=== PATIENT | female | born 1980 | race Caucasian/White ===

== ENCOUNTER 2021-07-14 12:36 | Emergency (ER) | payer OTHER, SELFPAY ==
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
[2021-07-14 13:25] VITALS: BP 151/92; BP 158/117; PULSE 96; PULSE 98; RESP 19; TEMP 36.1; O2SAT 97
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
[2021-07-14 18:32] VITALS: BP 147/95; PULSE 88; RESP 17; O2SAT 96
[2021-07-14] MEDS: oxyCODONE HCl Immed Release 5 MG TABLET PO (18:34)
[2021-07-14] MEDS: Ketorolac Tromethamine 60 MG/2 ML VIAL IM (18:38)
[2021-07-14] MEDS: Amoxicillin/Potassium Clav 875 MG TABLET PO (18:38)
== END 2021-07-14 19:46 | disposition home or self-care (01) ==
PROVIDERS: Emergency Provider Emergency Medicine
DX: S70.01XA Contusion of right hip, initial encounter (principal); S51.852A Open bite of left forearm, initial encounter; G44.309 Post-traumatic headache, unspecified, not intractable; M25.571 Pain in right ankle and joints of right foot; Y04.1XXA Assault by human bite, initial encounter; Y93.9 Activity, unspecified; Y92.9 Unspecified place or not applicable; Y99.9 Unspecified external cause status; Z79.899 Other long term (current) drug therapy
CPT/HCPCS: 70486; 73502; 73600; 96372; 99284; J1885

== ENCOUNTER 2021-07-30 17:46 | Emergency (ER) | payer OTHER, SELFPAY ==
[2021-07-30 17:54] VITALS: BP 174/120; PULSE 86; RESP 18; TEMP 36.1; O2SAT 98; BMI 50.2
--- NOTE | 2021-07-30 18:42 | ED.BACK ---
HPI - Back Pain/Injury General Chief Complaint: Back Pain/Injury Stated Complaint: back pain Time Seen by Provider: 07/30/21 18:30 Source: patient Mode of arrival: ambulatory Limitations: no limitations History of Present Illness HPI Narrative: 41-year-old female with history of morbid obesity, chronic low back pain with known herniated disc who presents to the ER with acute on chronic right sided LBP that worsened yesterday when she was putting on her abdominal binder getting ready to go out. She states the pain is located in the lower back and does not radiate. With movement the pain is a 10/10. At rest it is minimal. She is unable to cook her Thanksgiving dinner due to the pain. She denies any lower extremity weakness, numbness, tingling, urinary or bowel incontinence. She states she has to take chronic narcotics for low back pain however her pain management doctor retired and she has been managing the pain without narcotics for quite some time now. She feels the pain is deep and spasming. She has tried ice and 800 mg of ibuprofen with no relief. MD elicited complaint: back pain Pertinent past history: prior back pain Onset (ago): day(s) Timing: intermittent and progressively worsening Severity: severe Pain scale (0-10): 10 Similar Symptoms Previously: Yes Quality: sharp and spasming Location: right lower back Radiation: none Exacerbating factors: movement and walking Relieving factors: immobilization Context: turning/twisting Associated symptoms: denies other symptoms Treatments prior to arrival: cold therapy and NSAIDS Work related injury: No Related Data Previous Rx's Medication Instructions Recorded amoxicillin 875 mg-potassium 1 tab PO Q12H #14 tab 07/14/21 clavulanate 125 mg tablet (Augmentin) amoxicillin 875 mg-potassium 1 tab PO Q12H #14 tab 07/14/21 clavulanate 125 mg tablet (Augmentin) oxycodone-acetaminophen 5 mg-325 1 tab PO TID PRN #7 tab 07/14/21 mg tablet (Percocet) oxycodone-acetaminophen 5 mg-325 1 tab PO TID PRN #7 tab 07/14/21 mg tablet (Percocet) cyclobenzaprine 10 mg tablet 10 mg PO TID PRN #14 tab 07/30/21 hydrocodone 5 mg-acetaminophen 325 1 tab PO Q6H PRN #8 tab 07/30/21 mg tablet ibuprofen 800 mg tablet 800 mg PO Q8H PRN #14 tab 07/30/21 lidocaine 5 % topical patch 1 patch TOPICAL DAILY #15 ea 07/30/21 Allergies Allergy/AdvReac Type Severity Reaction Status Date / Time No Known Allergies Allergy Verified 07/14/21 17:53 Review of Systems Review of Systems: Constitutional: No Fever, No Chills ENT/Mouth: No sore throat, No Rhinorrhea, No Swallowing Difficulty Cardiovascular: No Chest Pain, No SOB Gastrointestinal: No Nausea, No Vomiting, No abdominal Pain Genitourinary: No Dysuria, No Urinary Frequency, No Hematuria Musculoskeletal: No joint pain, + Myalgias Skin: No Skin Lesions, No rash Neuro: No Weakness, No Numbness Heme/Lymph: No Bruising, No Lymphadenopathy PMFSH Past Medical History Medical History Herniated lumbar intervertebral disc Hypertension Social History Social History Advance Directives: No Advance Directives Information Provided: No Physical Exam Vital Signs: Vital Signs: Last Vital Signs Temp 97 F 07/30/21 17:54 Pulse 86 07/30/21 17:54 Resp 18 07/30/21 17:54 BP 174/120 H 07/30/21 17:54 Pulse Ox 98 07/30/21 17:54 Body Mass Index 50.2 Appearance: Alert. Oriented X3. No acute distress. HEENT: normal inspection CVS: Normal heart rate and rhythm. Pulses normal. Respiratory: No respiratory distress. Skin: Skin warm and dry. Normal skin color. Normal skin turgor. No rashes. Back: Normal inspection, limited range of motion due to pain. Right low lumbar area and SI joint are nontender. Negative straight leg raise. Extremities: Atraumatic x4, normal range of motion Neuro: Oriented X 3. No motor deficit. No sensory deficit. Ambulates with slow but steady gait. Course Course Course Narrative: 41-year-old female with history of morbid obesity chronic low back pain with known herniated disc presents to the ER with acute onset of right low back pain with a twisting motion yesterday. No radiation of the pain or no red flag symptoms of low back pain. She is comfortable at rest. No urinary symptoms. Will medicate and reassess. Reevaluation(s) Reevaluation #1: Patient's pain is much improved. She is ambulating with a steady gait. She is stable for discharge home with a short course of muscle relaxers and p.r.n. Vicodin for severe pain. She will follow-up with her doctor early next week. Critical Care Time Critical Care Time Critical Care Time: No Discharge Plan Discharge Clinical Impression: Low back pain Qualifiers: Chronicity: acute Back pain laterality: right Sciatica presence: without sciatica Qualified Code(s): M54.50 - Low back pain, unspecified Patient Disposition: Home, Self-Care Instructions: Acute Low Back Pain (ED) Additional Instructions: No bending, lifting or twisting. Use ice several times per day for 20 minutes at a time for the next 48 hours and then change to heat. Take medications as prescribed to help with pain and discomfort. Follow up with your Primary Care Doctor this week. If your pain worsens, if you develop new numbness, tingling, weakness, loss of function or incontinence call 911 or come back to the ER right away for evaluation. Prescriptions: New hydrocodone-acetaminophen 5-325 mg tablet 1 tab PO Q6H PRN (Reason: pain) Qty: 8 RF: 0 cyclobenzaprine 10 mg tablet 10 mg PO TID PRN (Reason: muscle spasm) Qty: 14 RF: 0 ibuprofen 800 mg tablet 800 mg PO Q8H PRN (Reason: pain) Qty: 14 RF: 0 lidocaine 5 % adhesive patch,medicated 1 patch topical DAILY Qty: 15 RF: 0 No Action amoxicillin-pot clavulanate [Augmentin] 875-125 mg tablet 1 tab PO Q12H Qty: 14 RF: 0 oxycodone-acetaminophen [Percocet] 5-325 mg tablet 1 tab PO TID PRN (Reason: pain) Qty: 7 RF: 0 amoxicillin-pot clavulanate [Augmentin] 875-125 mg tablet 1 tab PO Q12H Qty: 14 RF: 0 oxycodone-acetaminophen [Percocet] 5-325 mg tablet 1 tab PO TID PRN (Reason: pain) Qty: 7 RF: 0 Interventions: ED Discharge Assessment Last Done: 07/30/21 19:21 Discharge Date/Time: 07/30/21 19:21
[2021-07-30] MEDS: Cyclobenzaprine HCl 10 MG TABLET PO (19:03)
[2021-07-30] MEDS: Ketorolac Tromethamine 15 MG/ML VIAL 30 MG IM (19:05)
== END 2021-07-30 19:21 | disposition home or self-care (01) ==
PROVIDERS: Emergency Provider Emergency Medicine
DX: M54.50 Low back pain, unspecified (principal); M62.838 Other muscle spasm; Z79.899 Other long term (current) drug therapy
CPT/HCPCS: 96372; 99283; 99284; J1885

== ENCOUNTER 2021-09-28 12:36 | Emergency (ER) | payer OTHER, SELFPAY ==
[2021-09-28 12:40] VITALS: BP 196/109; PULSE 103; TEMP 36.8; O2SAT 95; BMI 47.2
[2021-09-28 13:11] LABS: Appearance Urine CLOUDY; Color Urine YELLOW; Glucose Urine UA NEG (NEG); Leukocyte Esterase Urine 2+ (NEG); Nitrite Urine POS (NEG); PH 5.5 (5.0-8.0); Specific Gravity - Urine >= 1.030 (1.005-1.025); UACC Culture Trigger YES; Urine Blood 3+ (NEG); Urine Ketones NEG (NEG); Urine Protein 2+ MG/DL (NEG-TRACE)
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
[2021-09-28 13:37] LABS: Bacteria Urine 2+ /LPF; Mucus Urine 1+ /LPF; RBC Urine 50-75 /HPF (0); Squamous Epithelial Cell Urine 2+ /LPF
[2021-09-28] MEDS: oxyCODONE HCl Immed Release 5 MG TABLET PO (13:37)
[2021-09-28] MEDS: Ketorolac Tromethamine 60 MG/2 ML VIAL IM (13:38)
[2021-09-28] MEDS: Nitrofurantoin Monohyd/M-Cryst 100 MG CAPSULE PO (14:04)
[2021-09-28 15:44] LABS: CT PCR NOT DETECTED (Not Detect.); NG PCR NOT DETECTED (Not Detect.)
== END 2021-09-28 14:07 | disposition home or self-care (01) ==
PROVIDERS: Nurse Practitioner Family; Emergency Provider Emergency Medicine
DX: S39.012A Strain of muscle, fascia and tendon of lower back, initial encounter (principal); N39.0 Urinary tract infection, site not specified; W00.0XXA Fall on same level due to ice and snow, initial encounter; Y93.9 Activity, unspecified; Y92.9 Unspecified place or not applicable; Y99.9 Unspecified external cause status; Z79.899 Other long term (current) drug therapy
CPT/HCPCS: 81001; 87086; 87088; 87186; 87491; 87591; 96372; 99284; J1885

== ENCOUNTER 2021-10-05 22:22 | Emergency (ER) | payer OTHER, SELFPAY ==
--- NOTE | ~2021-10-05 | XR_ITS ---
EXAMINATION: XR CHEST CLINICAL INFORMATION: Shortness of breath. COMPARISON: None TECHNIQUE: Frontal view of the chest was obtained. FINDINGS: No significant abnormality is noted involving the heart, lungs, mediastinum, bony thorax or soft tissues. XR/XR chest 1V IMPRESSION: No acute cardiopulmonary process.
[2021-10-05 22:29] VITALS: BP 156/90; BP 157/107; PULSE 92; PULSE 93; RESP 20; TEMP 36.9; O2SAT 95; BMI 47.2
[2021-10-05 23:01] LABS: COVID-19 Test Negative (Negative); IDNOW Serial# 9DD0AD1C
--- NOTE | 2021-10-06 00:05 | ED_ITS ---
HPI - SOB/Dyspnea General Chief Complaint: Dyspnea Stated Complaint: Diff breathing Time Seen by Provider: 10/05/21 23:46 History of Present Illness HPI Narrative: Patient is a 41-year-old smoker presents today with coughing upper respiratory symptoms generalized malaise. Patient had her COVID vaccine x2. Patient denies any focal weakness. Denies any chest pain denies any diaphoresis claims when she ambulates she gets more short of breath especially with coughing. Patient from home. Cough is nonproductive in nature. Denies any leg swelling denies any chest pain. Patient was treated for urinary tract infection approximately 1 week ago. Claims she just finished the antibiotic but has developed a slight rash to her arms. Related Data Previous Rx's Medication Instructions Recorded amoxicillin 875 mg-potassium 1 tab PO Q12H #14 tab 07/14/21 clavulanate 125 mg tablet (Augmentin) amoxicillin 875 mg-potassium 1 tab PO Q12H #14 tab 07/14/21 clavulanate 125 mg tablet (Augmentin) oxycodone-acetaminophen 5 mg-325 1 tab PO TID PRN #7 tab 07/14/21 mg tablet (Percocet) oxycodone-acetaminophen 5 mg-325 1 tab PO TID PRN #7 tab 07/14/21 mg tablet (Percocet) cyclobenzaprine 10 mg tablet 10 mg PO TID PRN #14 tab 07/30/21 hydrocodone 5 mg-acetaminophen 325 1 tab PO Q6H PRN #8 tab 07/30/21 mg tablet ibuprofen 800 mg tablet 800 mg PO Q8H PRN #14 tab 07/30/21 lidocaine 5 % topical patch 1 patch TOPICAL DAILY #15 ea 07/30/21 cyclobenzaprine 10 mg tablet 10 mg PO TID PRN #10 tab 09/28/21 ketorolac 10 mg tablet 10 mg PO Q8H PRN #15 tab 09/28/21 lidocaine 5 % topical patch 1 patch TOPICAL DAILY #15 ea 09/28/21 (Lidoderm) nitrofurantoin 100 mg PO Q12H 5 Days #10 cap 09/28/21 monohydrate/macrocrystals 100 mg capsule (Macrobid) phenazopyridine 200 mg tablet 200 mg PO TID PRN #10 tab 09/28/21 (Pyridium) Allergies Allergy/AdvReac Type Severity Reaction Status Date / Time No Known Allergies Allergy Verified 10/05/21 22:29 Review of Systems Verdana 4l Review of Systems: Verdana 4d No fever no chills Positive Verdana 4d coughing upper respiratory symptoms Positive generalized malaise Verdana 4d Yes all other systems are reviewed and are negative [facility] Past Medical History Medical History Herniated lumbar intervertebral disc Hypertension Social History Social History Advance Directives: No Advance Directives Information Provided: Yes Patient : No Physical Exam Verdana 4l Vital Signs: Verdana 4d Verdana 4d Vital Signs: Verdana 4d Verdana 4Bd Last Vital Signs Verdana 4d Sales Assistant Displays New 4d Sales Assistant Displays New 4d Temp 98.5 F 10/05/21 22:29 Sales Assistant Displays New 4d Pulse 93 10/05/21 22:29 Sales Assistant Displays New 4d Resp 20 10/05/21 22:29 BP 157/107 H 10/05/21 22:29 Pulse Ox 95 10/05/21 22:29 BMI result Body Mass Index 47.2 Appearance: Alert. Oriented X3. No acute distress. Eyes: Pupils equal, round and reactive to light. ENT: Pharynx normal. Neck: Normal inspection. Neck supple. No lymph nodes noted. No crepitus CVS: Normal heart rate and rhythm. Pulses normal. Normal S1 and S2 Respiratory: No respiratory distress. Breath sounds normal. No Wheezing. No rales Abdomen: Soft and nontender. No rigidity. No distention. good BS x4 Skin: Skin warm and dry. Normal skin color. Normal skin turgor. Extremities: No lower extremity edema. Neurovascular intact to all extremities. No Lacerations. No Rash Neuro: Oriented X 3. No motor deficit. No sensory deficit. Moving all extermities. No slurred speech MDM - SOB/Dyspnea MDM Narrative Medical decision making narrative: Patient's O2 sat 95% on room air. After ambulation patient's O2 sat actually went up to 97%. She is in no distress. Lungs are clear. COVID test was negative chest x-ray negative. Patient given reassurance. Question allergic reaction to antibiotic the patient already finished her antibiotics. There is no other change in her environment. Will discharge patient home will give patient an albuterol inhaler. Encouraged patient to stop smoking. Close follow-up on an outpatient basis. Medical Records Attestation: I reviewed the patient's medical records. Lab Data Attestation: I reviewed the patient's lab results. Labs: Lab Results 10/05/21 Range/Units 22:36 COVID-19 ([facility]) Negative (Negative) COVID-19 Clin Com See Note Discharge Plan Discharge Clinical Impression: Upper respiratory infection Patient Disposition: Home, Self-Care Instructions: Upper Respiratory Infection (ED) Prescriptions: No Action hydrocodone-acetaminophen 5-325 mg tablet 1 tab PO Q6H PRN (Reason: pain) Qty: 8 0RF cyclobenzaprine 10 mg tablet 10 mg PO TID PRN (Reason: muscle spasm) Qty: 14 0RF ibuprofen 800 mg tablet 800 mg PO Q8H PRN (Reason: pain) Qty: 14 0RF lidocaine 5 % adhesive patch,medicated 1 patch topical DAILY Qty: 15 0RF Rx Instructions: leave on most painful area for up to 12 hrs lidocaine [Lidoderm] 5 % adhesive patch,medicated 1 patch topical DAILY Qty: 15 0RF Rx Instructions: leave on most painful area for up to 12 hrs cyclobenzaprine 10 mg tablet 10 mg PO TID PRN (Reason: muscle spasm) Qty: 10 0RF ketorolac 10 mg tablet 10 mg PO Q8H PRN (Reason: pain) Qty: 15 0RF nitrofurantoin monohyd/m-cryst [Macrobid] 100 mg capsule 100 mg PO Q12H 5 Days Qty: 10 0RF Rx Instructions: must administer with a meal/food phenazopyridine [Pyridium] 200 mg tablet 200 mg PO TID PRN (Reason: pain) Qty: 10 0RF amoxicillin-pot clavulanate [Augmentin] 875-125 mg tablet 1 tab PO Q12H Qty: 14 0RF oxycodone-acetaminophen [Percocet] 5-325 mg tablet 1 tab PO TID PRN (Reason: pain) Qty: 7 0RF amoxicillin-pot clavulanate [Augmentin] 875-125 mg tablet 1 tab PO Q12H Qty: 14 0RF oxycodone-acetaminophen [Percocet] 5-325 mg tablet 1 tab PO TID PRN (Reason: pain) Qty: 7 0RF Referrals: Physician,Unknown J [Primary Care Provider] - 2 days
[2021-10-06] MEDS: Albuterol Sulfate 90 MCG 8 GM INHALER 2 PUFF INHALE (00:29)
== END 2021-10-06 00:32 | disposition home or self-care (01) ==
PROVIDERS: Emergency Provider Emergency Medicine Emergency Medical Services
DX: J06.9 Acute upper respiratory infection, unspecified (principal); R06.00 Dyspnea, unspecified; Z20.822 Contact with and (suspected) exposure to COVID-19; Z79.899 Other long term (current) drug therapy
CPT/HCPCS: 71045; 87635; 99283

== ENCOUNTER 2021-10-20 08:13 | Emergency (ER) | payer OTHER, SELFPAY ==
--- NOTE | ~2021-10-20 | XR_ITS ---
EXAMINATION: XR SHOULDER, RIGHT CLINICAL INFORMATION: Right shoulder pain radiating to right arm COMPARISON: None TECHNIQUE: Three views of the right shoulder. FINDINGS: Bone alignment is normal. No fracture or dislocation is seen. The glenohumeral joint is normal. There is arthritis at the acromioclavicular joint. Soft tissues are unremarkable. XR/XR shoulder RT min 2V IMPRESSION: Arthritis at the acromioclavicular joint.
[2021-10-20 09:00] VITALS: BP 159/107; PULSE 84; RESP 16; TEMP 36.2; O2SAT 97; BMI 48.0
--- NOTE | 2021-10-20 09:34 | ED.EXTPRO ---
HPI - Extremity Problem General Chief complaint: Extremity Problem Stated complaint: PAIN R SHOULDER GOING DOWN ARM TINGLING Time Seen by Provider: 10/20/21 09:10 Source: patient and family Mode of arrival: ambulatory Limitations: no limitations History of Present Illness HPI Narrative: 41 yo with history of HTN, disc disease here with complaints of right shoulder pain with radiation down the right arm x 3 weeks with no known injury or trauma. Pain is worsened with movement. She denies any neck pain or trauma. No fevers, chills, cough, difficulty breathing, chest pain. Patient works as a [employer] MANAGER. She does not recall any specific injury. She is taking Toradol at home but ran out today. It does seem to to help when she takes it. Also ran out of her lisinopril 10 mg. Does not have a primary care doctor. She is requesting a refill Related Data Previous Rx's Medication Instructions Recorded amoxicillin 875 mg-potassium 1 tab PO Q12H #14 tab 07/14/21 clavulanate 125 mg tablet (Augmentin) amoxicillin 875 mg-potassium 1 tab PO Q12H #14 tab 07/14/21 clavulanate 125 mg tablet (Augmentin) oxycodone-acetaminophen 5 mg-325 1 tab PO TID PRN #7 tab 07/14/21 mg tablet (Percocet) oxycodone-acetaminophen 5 mg-325 1 tab PO TID PRN #7 tab 07/14/21 mg tablet (Percocet) cyclobenzaprine 10 mg tablet 10 mg PO TID PRN #14 tab 07/30/21 hydrocodone 5 mg-acetaminophen 325 1 tab PO Q6H PRN #8 tab 07/30/21 mg tablet ibuprofen 800 mg tablet 800 mg PO Q8H PRN #14 tab 07/30/21 lidocaine 5 % topical patch 1 patch TOPICAL DAILY #15 ea 07/30/21 cyclobenzaprine 10 mg tablet 10 mg PO TID PRN #10 tab 09/28/21 ketorolac 10 mg tablet 10 mg PO Q8H PRN #15 tab 09/28/21 lidocaine 5 % topical patch 1 patch TOPICAL DAILY #15 ea 09/28/21 (Lidoderm) nitrofurantoin 100 mg PO Q12H 5 Days #10 cap 09/28/21 monohydrate/macrocrystals 100 mg capsule (Macrobid) phenazopyridine 200 mg tablet 200 mg PO TID PRN #10 tab 09/28/21 (Pyridium) cyclobenzaprine 10 mg tablet 10 mg PO TID PRN #10 tab 10/20/21 ketorolac 10 mg tablet 10 mg PO Q8H PRN #30 tab 10/20/21 lisinopril 10 mg tablet 10 mg PO DAILY #30 tab 10/20/21 Allergies Allergy/AdvReac Type Severity Reaction Status Date / Time No Known Allergies Allergy Verified 10/05/21 22:29 Review of Systems Review of Systems: Yes all other systems are reviewed and are negative Constitutional: Constitutional: Reports no additional constitutional complaints, Denies body ache(s), Denies chills, Denies fever(s), Denies headache(s) and Denies weakness Eyes: Eyes: Reports no additional eye complaints and Denies change in vision ENT: Reports system reviewed and no additional complaints, except as documented, Denies dizziness, Denies headache(s), Denies nasal congestion, Denies nasal discharge and Denies neck pain Cardiovascular: Cardiovascular: Reports no additional cardiovascular complaints, Denies chest pain, Denies leg edema and Denies dyspnea Respiratory: Respiratory: Reports no additional respiratory complaints, Denies cough and Denies dyspnea Gastrointestinal: Gastrointestinal: Reports no additional gastrointestinal complaints, Denies abdominal pain, Denies diarrhea, Denies nausea and Denies vomiting Genitourinary: Genitourinary: Reports no additional female genitourinary complaints and Denies urinary incontinence Musculoskeletal: Musculoskeletal: Reports no additional musculoskeletal complaints, Denies back pain, Reports arthralgias, Denies joint swelling, Denies neck pain, Denies numbness, Reports radiating pain into limb and Denies tingling Integumentary/Breasts: Skin/Breast: Reports system reviewed and no additional complaints, except as docu and Denies rash Neurologic: Reports system reviewed and no additional complaints, except as documented, Denies Abnormal speech present, Denies dizziness, Denies headache(s), Denies numbness, Denies tingling and Denies weakness PMFSH Past Medical History Attestation statement: The following information was validated with the patient. Source: nursing notes reviewed Medical History Herniated lumbar intervertebral disc Hypertension Social History Social History Advance Directives: No Advance Directives Information Provided: No Patient : No Physical Exam Vital Signs: Vital Signs: Last Vital Signs Temp 97.2 F 10/20/21 09:00 Pulse 84 10/20/21 09:00 Resp 16 10/20/21 09:00 BP 159/107 H 10/20/21 09:00 Pulse Ox 97 10/20/21 09:00 BMI result Body Mass Index 48.0 Const: General: cooperative, healthy appearing, comfortable and no acute distress Orientation/consciousness: patient oriented x3 Limitations: no limitations HENMT: Head: Yes normal to inspection Ears: hearing grossly normal bilaterally General nose exam: Normal external nose present Face and sinus: Yes normal facial exam Mouth: Normal oral and palatal mucosa present Throat: Yes posterior oropharynx normal Eyes: General: appearance normal, both eyes and all related structures Pupils: Equal, round and reactive pupils present Neck: Other: No midline tenderness, step-offs or deformities Right-sided trapezius tenderness with a palpable muscle spasm. Neck: Yes normal visual inspection, Yes full ROM and Yes no lymphadenopathy Chest: Chest palpation & inspection: normal inspection of the chest Resp: Effort & Inspection: normal respiratory effort Auscultation: clear to auscultation bilaterally Cardio: Rate: regular rate Rhythm: regular rhythm Peripheral pulses: Peripheral pulses 2+ throughout GI: Inspection: Yes normal to inspection Palpation (GI): Soft to palpation and nontender Auscultation: normal bowel sounds Back/Spine/Pelvis: Thoracic/Lumbar Spine: thoracic and lumbar spine normal to inspection Skin: General skin exam: no rashes or lesions noted Neuro: General: patient oriented x3, no focal motor deficits and normal sensation to monofilament Cranial nerves: Yes CN's II-XII intact bilaterally, Yes Equal, round and reactive pupils present, Yes Bilaterally intact EOM present, Yes Nystagmus not present, Yes Normal facial strength present and Yes Midline tongue present Cognition (Neuro): normal cognition Speech: No Abnormal speech present Gait exam (Neuro): Normal gait present Motor exam (neuro): 5/5 motor strength present throughout Sensory Exam: Normal double simultaneous stimulation for sensation Deep tendon reflexes (DTR's): Right triceps reflex intensity grade: 2+, Left triceps reflex intensity grade: 2+, Rt Biceps (C5, C6): 2+, Left biceps reflex intensity grade: 2+, Right brachioradialis reflex intensity grade: 2+ and Left brachioradialis reflex intensity grade: 2+ Extrem: Other: There is tenderness of the proximal humerus. Pain is worsened with abduction of the extremity. Sensation is intact on exam. Neurovascular intact distally. Palpable radial and ulnar pulses. General: Yes normal to inspection Course Course Course Narrative: 41-year-old female here with atraumatic right shoulder pain with radiation down the arm for the last 2-3 weeks that has some improvement with home Toradol. No injury or trauma. No sensation pain. No chest pain or difficulty breathing. On exam the patient has some tenderness over the joint. There is pain with abduction of the extremity but there is no appreciable weakness. No sensation loss. Neurovascularly intact distally to the extremity. Also some tenderness over the right trapezius with a palpable muscle spasm. X-rays ordered from triage shows some arthritic changes. No fracture or dislocation. Likely cervical radiculopathy. Also consider underlying rotator cuff injury or osteoarthritis. Will treat with NSAID, low-dose muscle relaxant, gentle stretching and heat. Recommended follow-up with primary care doctor for resolution of symptoms. Patient does not have 1 so I provided list. She is also requesting a medication refill for lisinopril 10 mg daily. I will give her 30 day supply of this. Reviewed worrisome signs and symptoms when to return to the emergency department. Comfortable discharge home. MDM - Extremity (Nontraumatic) Medical Records Attestation: I reviewed the patient's medical records. Lab Data Attestation: I reviewed the patient's lab results. Imaging Data shoulder xray: Attestation: I personally reviewed and interpreted this imaging study as follows: Radiologist's impression: [address] [address] XRay Report Signed Patient: Patricia Brenner MR#: [id number] : 1980 Acct:[id number] Age/Sex: 41 / F ADM Date: 10/20/21 Loc: HO.ED Attending Dr: Ordering Physician: Patricia Berumen DO Date of Service: 10/20/21 Procedure(s): XR shoulder RT min 2V Accession Number(s): [id number] cc: [place],Patricia DO~ EXAMINATION: XR SHOULDER, RIGHT CLINICAL INFORMATION: Right shoulder pain radiating to right arm? COMPARISON: None? TECHNIQUE: Three views of the right shoulder. FINDINGS: Bone alignment is normal. No fracture or dislocation is seen. The glenohumeral joint is normal. There is arthritis at the acromioclavicular joint. Soft tissues are unremarkable.? XR/XR shoulder RT min 2V IMPRESSION: Arthritis at the acromioclavicular joint. Discharge Plan Discharge Clinical Impression: Cervical radiculopathy, Medication refill Patient Disposition: Home, Self-Care Instructions: Cervical Radiculopathy (ED), Medicine Refill (ED) Additional Instructions: Heat or ice Gentle stretching No heavy lifting or bending See primary care list Prescriptions: New lisinopril 10 mg tablet 10 mg PO DAILY Qty: 30 0RF ketorolac 10 mg tablet 10 mg PO Q8H PRN (Reason: pain) Qty: 30 0RF cyclobenzaprine 10 mg tablet 10 mg PO TID PRN (Reason: muscle spasm) Qty: 10 0RF No Action hydrocodone-acetaminophen 5-325 mg tablet 1 tab PO Q6H PRN (Reason: pain) Qty: 8 0RF cyclobenzaprine 10 mg tablet 10 mg PO TID PRN (Reason: muscle spasm) Qty: 14 0RF ibuprofen 800 mg tablet 800 mg PO Q8H PRN (Reason: pain) Qty: 14 0RF lidocaine 5 % adhesive patch,medicated 1 patch topical DAILY Qty: 15 0RF Rx Instructions: leave on most painful area for up to 12 hrs lidocaine [Lidoderm] 5 % adhesive patch,medicated 1 patch topical DAILY Qty: 15 0RF Rx Instructions: leave on most painful area for up to 12 hrs cyclobenzaprine 10 mg tablet 10 mg PO TID PRN (Reason: muscle spasm) Qty: 10 0RF ketorolac 10 mg tablet 10 mg PO Q8H PRN (Reason: pain) Qty: 15 0RF nitrofurantoin monohyd/m-cryst [Macrobid] 100 mg capsule 100 mg PO Q12H 5 Days Qty: 10 0RF Rx Instructions: must administer with a meal/food phenazopyridine [Pyridium] 200 mg tablet 200 mg PO TID PRN (Reason: pain) Qty: 10 0RF amoxicillin-pot clavulanate [Augmentin] 875-125 mg tablet 1 tab PO Q12H Qty: 14 0RF oxycodone-acetaminophen [Percocet] 5-325 mg tablet 1 tab PO TID PRN (Reason: pain) Qty: 7 0RF amoxicillin-pot clavulanate [Augmentin] 875-125 mg tablet 1 tab PO Q12H Qty: 14 0RF oxycodone-acetaminophen [Percocet] 5-325 mg tablet 1 tab PO TID PRN (Reason: pain) Qty: 7 0RF Referrals: Physician,None [Primary Care Provider] - 2 days
[2021-10-20] MEDS: Cyclobenzaprine HCl 10 MG TABLET PO (10:14)
[2021-10-20] MEDS: Ketorolac Tromethamine 60 MG/2 ML VIAL IM (10:15)
[2021-10-20 10:35] VITALS: PULSE 70; RESP 18
--- NOTE | 2021-10-20 10:35 | PC.NURSE ---
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 PROVIDER UPDATED PT ON PLAN OF CARE AND DISCHARGE HOME. PT AGREEABLE TO BE MEDICATED AND DISCHARGED. PT AWAKE, ALERT AND ORIENTED X 3. SKIN WARM AND DRY. RESP UNLABORED. DENIES N/V. NO C/O ACUTE DISTRESS. +CMS.
== END 2021-10-20 10:41 | disposition home or self-care (01) ==
PROVIDERS: Emergency Provider Emergency Medicine
DX: M54.12 Radiculopathy, cervical region (principal); Z76.0 Encounter for issue of repeat prescription; I10 Essential (primary) hypertension
CPT/HCPCS: 73030; 96372; 99283; 99284; J1885

== ENCOUNTER 2023-05-18 13:21 | Outpatient (AMB) | payer MEDICAID, SELFPAY ==
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
[2023-05-18 14:17] VITALS: BP 160/110; PULSE 85; O2SAT 98; BMI 52.0
== END 2023-05-18 15:12 | disposition home or self-care (01) ==
PROVIDERS: Visit Provider Nurse Practitioner Family
DX: M62.838 Other muscle spasm (principal); M51.36 Other intervertebral disc degeneration, lumbar region; M47.817 Spondylosis without myelopathy or radiculopathy, lumbosacral region; M25.561 Pain in right knee; M25.562 Pain in left knee; E66.01 Morbid (severe) obesity due to excess calories; Z68.43 Body mass index [BMI] 50.0-59.9, adult; M53.3 Sacrococcygeal disorders, not elsewhere classified
CPT/HCPCS: 99204

== ENCOUNTER → 2023-05-18 13:21 | Outpatient (BNVA) | payer MEDICAID, SELFPAY | PROVIDERS: Visit Provider Nurse Practitioner Family | DX: M53.3 Sacrococcygeal disorders, not elsewhere classified (principal); M51.36 Other intervertebral disc degeneration, lumbar region; M47.817 Spondylosis without myelopathy or radiculopathy, lumbosacral region; M25.561 Pain in right knee; M25.562 Pain in left knee; M62.838 Other muscle spasm; E66.01 Morbid (severe) obesity due to excess calories; Z68.43 Body mass index [BMI] 50.0-59.9, adult | CPT/HCPCS: 99212 ==

== ENCOUNTER 2023-05-24 19:00 | Emergency (ER) | payer MEDICAID, SELFPAY ==
--- NOTE | ~2023-05-24 | XR_ITS ---
EXAMINATION: XR CHEST CLINICAL INFORMATION: Cough. COMPARISON: None available. TECHNIQUE: 2 views of the chest were obtained. FINDINGS: No significant abnormality is noted involving the heart, lungs, mediastinum, bony thorax or soft tissues. XR/XR chest 2V IMPRESSION: Unremarkable chest examination.
[2023-05-24 19:29] VITALS: BP 151/93; PULSE 89; RESP 14; TEMP 36.7; O2SAT 97; BMI 50.1
--- NOTE | 2023-05-24 19:29 | ED.SOB ---
HPI - SOB/Dyspnea General Chief Complaint: Upper Respiratory Symptoms Stated Complaint: shortness of breath, coughing Time Seen by Provider: 05/25/23 00:48 Source: patient Mode of arrival: ambulatory History of Present Illness HPI Narrative: 43-year-old female who presents as an everyday smoker with cough and shortness of breath for 3 days but denies any fevers or chills as headaches since is phlegm production with chest wall pain Related Data Previous Rx's Medication Instructions Recorded lisinopril 10 mg tablet 10 mg PO DAILY #30 tabs 10/20/21 celecoxib 200 mg capsule 200 mg PO BID PRN pain 30 days #60 05/18/23 caps tizanidine 4 mg tablet 4 mg PO BID PRN muscle spasticity 05/18/23 30 days #60 tabs benzonatate 200 mg capsule 200 mg PO TID PRN cough #10 caps 05/25/23 prednisone 50 mg tablet 50 mg PO DAILY 4 days #4 tabs 05/25/23 Allergies Allergy/AdvReac Type Severity Reaction Status Date / Time No Known Allergies Allergy Verified 05/18/23 14:14 Review of Systems Review of Systems: Pertinent positives and negatives as stated in HPI [facility] Past Medical History Source: nursing notes reviewed Medical History Herniated lumbar intervertebral disc Hypertension Social History Social History Alcohol intake: unknown Smoked in Last 30 Days: Yes Use of substances other than those prescribed or required for medical reasons: No Advance Directives: No Advance Directives Information Provided: Yes Physical Exam Vital Signs: Vital Signs: Last Vital Signs Temp 98.0 F 05/25/23 00:20 Pulse 89 05/25/23 00:20 Resp 18 05/25/23 00:20 BP 149/93 H 05/25/23 00:20 Pulse Ox 95 05/25/23 00:21 O2 Del Method Room Air 05/25/23 00:21 O2 Flow Rate 96 05/25/23 00:20 BMI result Body Mass Index 50.1 VITAL SIGNS: Reviewed. GENERAL: Well developed, well nourished, in no acute distress. HEAD: Normocephalic/atraumatic EYES: PERRLA, EOMI EARS: Ext canals without abnormality NOSE: Nares patent bilateral OROPHARYNX: no oral lesions noted, posterior pharynx clear NECK: Supple, no adenopathy LUNGS: Normal breath sounds. No adventitious sounds or accessory muscle use. SpO2<95> CARDIOVASCULAR: Regular rate and rhythm without noted murmurs ABDOMEN: Soft, non-tender, non-distended with bowel sounds. MUSCULOSKELETAL: No tenderness, deformities, or effusions noted on gross inspection. EXTREMITIES: No cyanosis, clubbing or edema. SKIN: Inspection of the skin reveals no rashes NEUROLOGIC: Alert and oriented x 4. Strength and sensation to light touch were grossly intact x 4. Course Course Course Narrative: RME - 43 yo female with history of lumbar disc disease, active smoker, HTN who presents to the ER for evaluation of worsening cough for the last 3 days. Bringing up white phlegm. Reports rib pain and headache from all the coughing. SpO2 97% in triage, speaking in complete sentences. Plan: CXR, viral swab Medications Administered Discontinued Medications Generic Name Dose Route Start Last Admin Trade Name Freq PRN Reason Stop Dose Admin Benzonatate 200 mg 05/25/23 01:05 05/25/23 01:33 Benzonatate 100 Mg Capsule PO 05/25/23 01:06 200 mg ONCE ONE Administration Prednisone 50 mg 05/25/23 01:05 05/25/23 01:33 Prednisone 10 Mg Tablet PO 05/25/23 01:06 50 mg ONCE ONE Administration Medical Decision Making Medical Decision Making [facility] Narrative: 43-year-old female with history and clinical presentation not consistent with acute asthma exacerbation, suspect acute bronchitis or viral syndrome, however on review of viral testing influenza and COVID-19 under negative. Patient is oxygenating well without tachypnea or tachycardia in remains afebrile. She will receive Tessalon Perles here as well as prednisone. She is otherwise discharged home with diagnosis of bronchitis. Chest x-ray negative for infiltrate and otherwise my interpretation is in agreement with radiology's impression. Differential Diagnosis Differential Diagnoses: The differential diagnosis associated with the presentation includes Please see the discussion Admission/Observation Consideration of admission/observation: Escalation of care including admission/observation considered Please see the discussion above Lab Data [facility] Lab Attestation statement: I reviewed the patient's lab results. Please see the discussion above Labs: Lab Results 05/24/23 Range/Units 19:34 Influenza Type A (PCR) NEGATIVE (Negative) Influenza Type B (PCR) NEGATIVE (Negative) RSV RNA Qual (PCR) NEGATIVE (Negative) SARS-CoV-2 RNA (RT-PCR) NEGATIVE (Negative) Radiology Impression Discussion of test interpretation with radiology: I have reviewed the radiologist's reading. Radiologist Impression: Please see the discussion above External Record Review External record reviewed: Outpatient record and Prior outpatient labs Discharge Plan Discharge Clinical Impression: Bronchitis, Cigarette smoker Patient Disposition: Home, Self-Care Instructions: Acute Bronchitis (ED) Additional Instructions: 1. Complete the short course of steroids. 2. I have prescribed cough medication for you. 3. Please follow-up with your primary care doctor in the next 1-2 days. Return to the ER for any worsening symptoms. Prescriptions: New prednisone 50 mg tablet 50 mg PO DAILY 4 Days Qty: 4 0RF benzonatate 200 mg capsule 200 mg PO TID PRN (Reason: cough) Qty: 10 0RF No Action lisinopril 10 mg tablet 10 mg PO DAILY Qty: 30 0RF tizanidine 4 mg tablet 4 mg PO BID PRN (Reason: muscle spasticity) 30 Days Qty: 60 0RF celecoxib 200 mg capsule 200 mg PO BID PRN (Reason: pain) 30 Days Qty: 60 0RF
[2023-05-24 21:24] LABS: Influenza A PCR NEGATIVE (Negative); Influenza B PCR NEGATIVE (Negative); Resp Syncy Virus RNA Qual PCR NEGATIVE (Negative); SARS COV2 PCR INHOUSE NEGATIVE (Negative)
[2023-05-24 22:25] VITALS: BP 179/102; PULSE 90; O2SAT 97
--- NOTE | 2023-05-24 22:30 | PC.NURSE ---
pt hypertensive, charge nurse jono aware. Will continue to monitor.
[2023-05-25 00:20] VITALS: BP 149/93; PULSE 89; RESP 18; TEMP 36.7
[2023-05-25 00:21] VITALS: O2SAT 95
[2023-05-25] MEDS: predniSONE 10 MG TABLET 50 MG PO (01:33)
[2023-05-25] MEDS: Benzonatate 100 MG CAPSULE 200 MG PO (01:33)
[2023-05-25 02:10] VITALS: BP 170/100; PULSE 77; TEMP 36.7; O2SAT 97
== END 2023-05-25 02:15 | disposition home or self-care (01) ==
PROVIDERS: Physician Assistant; Emergency Provider Student in an Organized Health Care Education/Training Program
DX: J40 Bronchitis, not specified as acute or chronic (principal); Z20.822 Contact with and (suspected) exposure to COVID-19; Z20.828 Contact with and (suspected) exposure to other viral communicable diseases; F17.210 Nicotine dependence, cigarettes, uncomplicated
CPT/HCPCS: 0241U; 71046; 99283; 99284

== ENCOUNTER 2023-06-04 23:06 | Emergency (ER) | payer MEDICAID, SELFPAY ==
[2023-06-04 23:20] VITALS: BP 121/79; PULSE 90; RESP 18; TEMP 36.8; O2SAT 94; BMI 50.2
--- NOTE | 2023-06-04 23:39 | ED.GENADULT ---
HPI - General Adult General Chief complaint: Back Pain/Injury Stated complaint: Back Pain Time Seen by Provider: 06/04/23 23:20 Source: patient and RN notes reviewed Limitations: no limitations History of Present Illness HPI narrative: 43-year-old female who has a history back pain, bronchitis, hypertension, presents for evaluation of right low back pain. Patient states symptoms began over the past 24 hours. She has had history of similar symptoms the past. She denies any specific injury. She reports being active it may have done something with caring for children or even at work. She denies specifically injury at work. She has tried heating pad to the affected area, lidocaine patches, tramadol, gabapentin, and tizanidine which she has been prescribed per previously. It is worse with palpation and movement. She reports a ?knot? to this area. She denies any urinary symptoms. No bowel or bladder incontinence. Patient is otherwise feeling well. Related Data Previous Rx's Medication Instructions Recorded lisinopril 10 mg tablet 10 mg PO DAILY #30 tabs 10/20/21 celecoxib 200 mg capsule 200 mg PO BID PRN pain 30 days #60 05/18/23 caps tizanidine 4 mg tablet 4 mg PO BID PRN muscle spasticity 05/18/23 30 days #60 tabs benzonatate 200 mg capsule 200 mg PO TID PRN cough #10 caps 05/25/23 prednisone 50 mg tablet 50 mg PO DAILY 4 days #4 tabs 05/25/23 methocarbamol 750 mg tablet 750 mg PO TID PRN muscle spasm #20 06/05/23 tabs Allergies Allergy/AdvReac Type Severity Reaction Status Date / Time No Known Allergies Allergy Verified 05/18/23 14:14 Review of Systems Review of Systems: Constitutional: No Weight loss, No Fever, No Chills, No Night Sweats, No Fatigue, No Malaise Cardiovascular: No Chest Pain, No SOB, No Edema, No Palpitations Respiratory: No Cough, No Sputum, No Dyspnea Gastrointestinal: No Nausea, No Vomiting, No Diarrhea, No Constipation, No Abdominal pain Genitourinary: No irregular bleeding, No Dysuria, No Hematuria, No Flank Pain Musculoskeletal: No joint pain, No Myalgias, No Joint Swelling + back pain Neuro: No Weakness, No Numbness, No Paresthesias, No Loss of Consciousness, No Dizziness, No Headache [facility] Past Medical History Medical History Herniated lumbar intervertebral disc Hypertension Social History Social History Alcohol intake: unknown Advance Directives: No Advance Directives Information Provided: No Physical Exam ED Vital Signs: Vital Signs - 24 hr 06/04/23 23:20 Temperature 98.3 F Pulse Rate 90 Respiratory Rate 18 Blood Pressure 121/79 Pulse Oximetry 94 Oxygen Delivery Method Room Air BMI result Body Mass Index 50.2 Const General: cooperative Resp Effort & Inspection: normal respiratory effort Auscultation: clear to auscultation bilaterally Cardio Rate: regular rate Rhythm: regular rhythm GI Other: Abdomen is soft and nontender. No CVAT. Back/Spine/Pelvis Other: There is no spinous, paraspinous or paravertebral tenderness. There is moderate spasm to the right lumbar muscles. Mild diffuse tenderness in this region. Worse with twisting. No ecchymosis noted. No sciatic notch tenderness. Skin Other: No ecchymosis noted to the affected area. Extrem Other: Ambulates without difficulty in the emergency department. Medications Administered Discontinued Medications Generic Name Dose Route Start Last Admin Trade Name Freq PRN Reason Stop Dose Admin Ketorolac Tromethamine 30 mg 06/04/23 23:45 06/04/23 23:56 Ketorolac Tromethamine 30 Mg/Ml Vial IM 06/04/23 23:46 30 mg ONCE ONE Administration Oxycodone HCl 5 mg 06/04/23 23:45 06/04/23 23:56 Oxycodone Hcl Immed Release 5 Mg Tablet PO 06/04/23 23:46 5 mg ONCE ONE Administration Medical Decision Making Medical Decision Making MDM Narrative: 43-year-old female with acute right lumbar pain, spasm. Trialed additional medications in the emergency department. Patient initially asking for IV morphine ?so I can get rid of this pain and sleep?. Explained to the patient this is only temporarily we will be masking the symptoms. Patient is agreeable to oxycodone at this time as well as discharge with Robaxin. Patient may continue current medications except combining tizanidine 4 taking additional tramadol at this time. Patient expresses understanding of these discharge instructions and has no further questions at this time. No evidence for sepsis, or intra-abdominal process at this time. No urinary symptoms. Defer on any imaging at this time given physical exam findings. Prescription monitoring program demonstrates multiple questions for hydrocodone and oxycodone over the past year. Last prescription was March. Differential Diagnosis Differential Diagnoses: The differential diagnosis associated with the presentation includes Disc herniation Muscle spasm Muscle strain Nerve impingement Sciatica Discharge Plan Discharge Clinical Impression: Lumbar paraspinal muscle spasm Acute myofascial strain of lumbar region Qualifiers: Encounter type: subsequent encounter Qualified Code(s): S39.012D - Strain of muscle, fascia and tendon of lower back, subsequent encounter Patient Disposition: Home, Self-Care Instructions: Muscle Spasm (ED) Additional Instructions: Rest. Avoid strenuous activity. Continue warm compresses. Continue patches to the affected area. Robaxin as directed for pain and muscle spasm. Do not take with Tizanidine. You may continue Tylenol or ibuprofen as directed for pain, available [id number]. Take with food. Do not take with any other NSAIDs. Follow-up with your primary care provider. Call this week to schedule a follow-up appointment. Return to the emergency department if you have any worsening of symptoms, or any concerns. Get well soon! Prescriptions: New methocarbamol 750 mg tablet 750 mg PO TID PRN (Reason: muscle spasm) Qty: 20 0RF No Action lisinopril 10 mg tablet 10 mg PO DAILY Qty: 30 0RF prednisone 50 mg tablet 50 mg PO DAILY 4 Days Qty: 4 0RF benzonatate 200 mg capsule 200 mg PO TID PRN (Reason: cough) Qty: 10 0RF tizanidine 4 mg tablet 4 mg PO BID PRN (Reason: muscle spasticity) 30 Days Qty: 60 0RF celecoxib 200 mg capsule 200 mg PO BID PRN (Reason: pain) 30 Days Qty: 60 0RF Discharge Date/Time: 06/05/23 00:22
[2023-06-04] MEDS: oxyCODONE HCl Immed Release 5 MG TABLET PO (23:56)
[2023-06-04] MEDS: Ketorolac Tromethamine 30 MG/ML VIAL IM (23:56)
== END 2023-06-05 00:22 | disposition home or self-care (01) ==
PROVIDERS: Emergency Provider Emergency Medicine
DX: M62.838 Other muscle spasm (principal); S39.012A Strain of muscle, fascia and tendon of lower back, initial encounter; X58.XXXA Exposure to other specified factors, initial encounter; I10 Essential (primary) hypertension; Z79.899 Other long term (current) drug therapy; M51.26 Other intervertebral disc displacement, lumbar region; Y93.9 Activity, unspecified; Y92.9 Unspecified place or not applicable; Y99.9 Unspecified external cause status
CPT/HCPCS: 96372; 99282; 99284; J1885

== ENCOUNTER 2023-06-16 20:56 | Inpatient (IN) | payer MEDICAID, SELFPAY ==
--- NOTE | ~2023-06-16 | XR_ITS ---
EXAMINATION: XR CHEST CLINICAL INFORMATION: Shortness of breath. COMPARISON: 05/24/2023 TECHNIQUE: 2 views of the chest were obtained. FINDINGS: The cardiomediastinal silhouette is stable. There is no focal lung consolidation or pleural effusion. The bony structures and soft tissues are unremarkable. XR/XR chest 2V IMPRESSION: No active cardiopulmonary disease.
--- NOTE | ~2023-06-16 | XR_ITS ---
EXAMINATION: XR KNEE, LEFT CLINICAL INFORMATION: Left knee pain and swelling cortisone shot fast not helpful COMPARISON: None available. TECHNIQUE: Four views of the left knee. FINDINGS: No acute visible fracture or dislocation. Multicompartment degenerative changes. Moderate narrowing of the medial femorotibial compartment periarticular osteophytes along the superior and inferior margins of the patella, distal femoral condyle, and tibial plateau. Joint spaces and alignment are otherwise maintained. Large knee joint effusion. Soft tissues are unremarkable. XR/XR knee LT 3V IMPRESSION: 1. No acute visible fracture or dislocation. 2. Multicompartment degenerative changes. 3. Large knee joint effusion.
--- NOTE | 2023-06-16 21:03 | ED.GENADULT ---
HPI - General Adult General Chief complaint: General Medical Stated complaint: ?Facial drooping/pt feels paralyzed Time Seen by Provider: 06/16/23 22:12 Source: patient Mode of arrival: ambulatory Limitations: no limitations History of Present Illness HPI narrative: Patient 43 years old with history of obesity arthritis hyperlipidemia and hypertension started on Lipitor few days ago since then noticed body pain all over comes in with multiple complaints notice right-sided chest pain 3 days ago while resting , lasted for half an hour no diaphoresis no nausea no vomiting no radiation of the pain. Does have arthritic pain in the left knee for last few days no calf swelling or pain no fever no chills no shortness of breath no urinary complaint Related Data Previous Rx's Medication Instructions Recorded lisinopril 10 mg tablet 10 mg PO DAILY #30 tabs 10/20/21 tizanidine 4 mg tablet 4 mg PO BID PRN muscle spasticity 05/18/23 30 days #60 tabs benzonatate 200 mg capsule 200 mg PO TID PRN cough #10 caps 05/25/23 prednisone 50 mg tablet 50 mg PO DAILY 4 days #4 tabs 05/25/23 methocarbamol 750 mg tablet 750 mg PO TID PRN muscle spasm #20 06/05/23 tabs celecoxib 200 mg capsule 200 mg PO BID PRN for pain #60 caps 06/15/23 Allergies Allergy/AdvReac Type Severity Reaction Status Date / Time No Known Allergies Allergy Verified 06/16/23 21:04 Review of Systems Review of Systems: Yes all other systems are reviewed and are negative PMFSH Past Medical History Medical History Herniated lumbar intervertebral disc Hypertension Social History Social History Alcohol intake: current Smoked in Last 30 Days: Yes Use of substances other than those prescribed or required for medical reasons: No Advance Directives: No Advance Directives Information Provided: Yes Patient : No Physical Exam ED Vital Signs: Vital Signs - 24 hr 06/16/23 21:05 06/16/23 22:10 06/16/23 23:16 Temperature 99.6 F 98.2 F 97.7 F Pulse Rate 105 H 97 94 Respiratory Rate 20 16 26 H Blood Pressure 140/77 H 124/73 119/59 L Pulse Oximetry 97 98 95 Oxygen Delivery Method Room Air Room Air Room Air 06/16/23 23:40 Temperature 98.3 F Pulse Rate 96 Respiratory Rate 19 Blood Pressure 133/77 Pulse Oximetry 96 Oxygen Delivery Method Room Air BMI result Body Mass Index 50.2 Appearance: Alert. Oriented X3. No acute distress. Obese Eyes: PERRLA, No Nystagmus ENT: Pharynx normal. Oral Mucosa dry Neck: Normal inspection. Neck supple. CVS: Normal heart rate and rhythm. Pulses normal. No murmur rub or gallop no chest wall tenderness Respiratory: No respiratory distress. Equal air entry bilateral, no wheezing/rales/rhonchi Abdomen: Soft and nontender. Bowel sounds are present, no mass palpable, no CVA tenderness Skin: Skin warm and dry. Normal skin color. Normal skin turgor. Extremities: No lower extremity edema. No calf tenderness left knees with slight effusion good range of movement diffuse tenderness+ Neuro: Oriented X 3. No motor deficit. No sensory deficit.No cerebellar signs , cranial nerves II-XII intact Course Course Course Narrative: This is an RME: Additional HPI, ROS, PE not included below will be deferred to primary provider. 43-year-old female who has a history back pain, bronchitis, hypertension, presenting to the ER with complaints of diffuse body weakness x several days. Patient reports that several days ago she had some chest pain and shortness of breath. She states that this has since resolved but now has weakness throughout her entire body. Patient mildly tachycardic at 104, otherwise vital signs within normal limits. Further ER evaluation needed. Plan: Labs, EKG, chest x-ray UA Medications Administered Generic Name Dose Route Start Last Admin Trade Name Freq PRN Reason Stop Dose Admin Heparin Sodium/Sodium Chloride 25,000 unit in 250 mls @ 0 mls/hr 06/16/23 23:45 06/17/23 01:42 Heparin Sodium,Porcine/1/2ns IVCONT 6.48 units/kg/hr .Q0M CRISTIN 10 mls/hr Titration Protocol Per Protocol Morphine Sulfate 2 mg 06/17/23 00:54 06/17/23 01:12 Morphine Sulfate 2 Mg/Ml Cartridge IVPUSH 2 mg Q4H PRN Administration Pain, Severe (Pain Scale 7-10) Protocol Discontinued Medications Generic Name Dose Route Start Last Admin Trade Name Freq PRN Reason Stop Dose Admin Aspirin 325 mg 06/17/23 00:12 06/17/23 01:12 Aspirin Enteric Coated 325 Mg Tablet.Dr PO 06/17/23 00:13 325 mg ONCE ONE Administration Heparin Sodium (Porcine) 5,000 unit 06/16/23 23:54 06/17/23 00:23 Heparin Sodium,Porcine 5,000 Unit/Ml Vial IVPUSH 06/16/23 23:55 5,000 unit ONCE ONE Administration Sodium Chloride 1,000 mls @ 999 mls/hr 06/16/23 22:15 06/17/23 00:15 Ns IV 06/16/23 23:15 Infused .Q1H1M ONE Infusion Ceftriaxone Sodium 1 gm/ 50 mls @ 100 mls/hr 06/16/23 23:05 06/17/23 00:05 Sodium Chloride IV 06/16/23 23:34 Infused ONCE ONE Infusion Ketorolac Tromethamine 30 mg 06/16/23 23:32 06/16/23 23:49 Ketorolac Tromethamine 30 Mg/Ml Vial IVPUSH 06/16/23 23:33 30 mg ONCE ONE Administration Medical Decision Making Medical Decision Making [facility] Narrative: Patient obese with multiple complaints with chest pain which happened 3 days ago no chest pain at this time patient has elevated troponin to 1588 CPK of 260 negative D-dimer EKG without acute ischemic change patient had slightly elevated WBC count and lactic acid with no source of infection will admit patient for elevated troponin/non STEMI started on heparin drip Differential Diagnosis Differential Diagnoses: The differential diagnosis associated with the presentation includes ACS/non STEMI/angina/pleurisy/musculoskeletal pain/viral syndrome Admission/Observation Consideration of admission/observation: Escalation of care including admission/observation considered Consult Healthcare Provider Management of the patient was discussed with: Hospitalist Lab Data [facility] Lab Attestation statement: I reviewed the patient's lab results. 06/16/23 21:21 06/16/23 21:21 Labs: Lab Results 06/16/23 06/16/23 06/16/23 Range/Units 21:21 22:24 22:29 WBC 17.3 H (4.8-10.8) X10*3/uL RBC 4.92 (4.20-5.50) X10*6/uL Hgb 15.5 (12.0-16.0) g/dl Hct 46.1 (37.0-47.0) % MCV 93.7 (80.0-98.0) fL MCH 31.5 (27.0-33.0) pg MCHC 33.6 (31.0-35.0) g/dl RDW 14.4 (11.0-16.0) % Plt Count 259 (160-400) X10*3/uL MPV 9.8 (9.4-12.3) fL Immature Gran % (Auto) 0.6 H (0.0-0.4) % Neut % (Auto) 53.0 (45-73) % Lymph % (Auto) 38.2 (20-40) % [place] % (Auto) 6.9 (2-11) % Eos % (Auto) 0.9 (0-4) % Baso % (Auto) 0.4 (0-2) % Lymph # (Auto) 6.6 H (1.2-4.9) X10*3/uL [place] # (Auto) 1.2 (0.1-1.2) X10*3/uL Eos # (Auto) 0.2 (0.0-0.4) X10*3/uL Baso # (Auto) 0.1 (0.0-0.2) X10*3/uL Abs Immat Gran (auto) 0.11 H (0.00-0.03) X10*3/uL Absolute Neuts (auto) 9.2 H (2.0-8.3) x10*3/uL Absolute Nucleated RBC 0.000 (0.0-0.012) X10*3/uL Nucleated RBC % (auto) 0.0 (0.0-0.2) /100WBC Smear Tech's Comments VERIFIED PT 10.7 L (11.1-13.3) SEC INR 0.9 (0.9-1.1) APTT 25.9 L (26.0-36.4) SEC D-Dimer High Sensitivty 235 NG/ML Sodium 138 (135-145) mmol/L Potassium 5.1 (3.3-5.1) mmol/L Chloride 104 (96-108) mmol/L Carbon Dioxide 22 (22-29) mmol/L Anion Gap 17 (12-20) BUN 26 H (9-16) mg/dL Creatinine 0.96 (0.5-1.4) mg/dL Estim Creat Clear Calc 118.4 Estimated GFR > 60 Random Glucose 195 H (60-115) mg/dL Lactic Acid 2.1 H* (0.5-2.0) mmol/L Calcium 9.4 (8.4-10.2) mg/dL Magnesium 2.2 (1.6-2.6) mg/dL Total Bilirubin 0.2 (0.0-1.0) mg/dL Direct Bilirubin < 0.2 (0.0-0.5) mg/dL AST 32 H (5-31) U/L ALT 46 H (0-31) U/L Alkaline Phosphatase 98 (39-117) U/L Total Creatine Kinase 264 H (26-140) U/L Troponin I High Sens 1547.3 H* (<3.5-17.0) ng/L Total Protein 7.4 (6.5-8.0) g/dL Albumin 3.8 (3.5-5.0) g/dL Urine Color Urine Appearance Urine pH (5.0-9.0) Ur Specific [place] (1.005-1.025) Urine Protein (Neg-Trace) mg/dL Urine Glucose (UA) (Negative) mg/dL Urine Ketones (Negative) mg/dL Urine Blood (Negative) Urine Nitrite (Negative) Ur Leukocyte Esterase (Negative) Urine RBC (0-2) /HPF Urine WBC (0-5) /HPF Ur Squamous Epith Cells (0-2) /HPF Urine Bacteria (None Seen) Hyaline Casts (0-2) /LPF Influenza Type A (PCR) NEGATIVE (Negative) Influenza Type B (PCR) NEGATIVE (Negative) RSV RNA Qual (PCR) NEGATIVE (Negative) SARS-CoV-2 RNA (RT-PCR) NEGATIVE (Negative) 06/16/23 06/16/23 Range/Units 23:21 23:45 WBC (4.8-10.8) X10*3/uL RBC (4.20-5.50) X10*6/uL Hgb (12.0-16.0) g/dl Hct (37.0-47.0) % MCV (80.0-98.0) fL MCH (27.0-33.0) pg MCHC (31.0-35.0) g/dl RDW (11.0-16.0) % Plt Count (160-400) X10*3/uL MPV (9.4-12.3) fL Immature Gran % (Auto) (0.0-0.4) % Neut % (Auto) (45-73) % Lymph % (Auto) (20-40) % [place] % (Auto) (2-11) % Eos % (Auto) (0-4) % Baso % (Auto) (0-2) % Lymph # (Auto) (1.2-4.9) X10*3/uL [place] # (Auto) (0.1-1.2) X10*3/uL Eos # (Auto) (0.0-0.4) X10*3/uL Baso # (Auto) (0.0-0.2) X10*3/uL Abs Immat Gran (auto) (0.00-0.03) X10*3/uL Absolute Neuts (auto) (2.0-8.3) x10*3/uL Absolute Nucleated RBC (0.0-0.012) X10*3/uL Nucleated RBC % (auto) (0.0-0.2) /100WBC Smear Tech's Comments PT (11.1-13.3) SEC INR (0.9-1.1) APTT (26.0-36.4) SEC D-Dimer High Sensitivty NG/ML Sodium (135-145) mmol/L Potassium (3.3-5.1) mmol/L Chloride (96-108) mmol/L Carbon Dioxide (22-29) mmol/L Anion Gap (12-20) BUN (9-16) mg/dL Creatinine (0.5-1.4) mg/dL Estim Creat Clear Calc Estimated GFR Random Glucose (60-115) mg/dL Lactic Acid (0.5-2.0) mmol/L Calcium (8.4-10.2) mg/dL Magnesium (1.6-2.6) mg/dL Total Bilirubin (0.0-1.0) mg/dL Direct Bilirubin (0.0-0.5) mg/dL AST (5-31) U/L ALT (0-31) U/L Alkaline Phosphatase (39-117) U/L Total Creatine Kinase (26-140) U/L Troponin I High Sens 1588.8 H* (<3.5-17.0) ng/L Total Protein (6.5-8.0) g/dL Albumin (3.5-5.0) g/dL Urine Color Yellow Urine Appearance Clear Urine pH 5.5 (5.0-9.0) Ur Specific [place] 1.025 (1.005-1.025) Urine Protein Negative (Neg-Trace) mg/dL Urine Glucose (UA) >=1000 H (Negative) mg/dL Urine Ketones Trace (Negative) mg/dL Urine Blood Negative (Negative) Urine Nitrite Negative (Negative) Ur Leukocyte Esterase Negative (Negative) Urine RBC 0-2 (0-2) /HPF Urine WBC 0-5 (0-5) /HPF Ur Squamous Epith Cells 3-5 (0-2) /HPF Urine Bacteria 1+ (None Seen) Hyaline Casts 0-2 (0-2) /LPF Influenza Type A (PCR) (Negative) Influenza Type B (PCR) (Negative) RSV RNA Qual (PCR) (Negative) SARS-CoV-2 RNA (RT-PCR) (Negative) Independent Interpretation I performed an independent interpretation of an: EKG Interpretation: Normal sinus rhythm heart rate 97 beats per minute normal interval normal axis nonspecific ST-T changes no acute ischemia Discharge Plan Discharge Clinical Impression: NSTEMI (non-ST elevated myocardial infarction) Patient Disposition: Admitted As Inpatient
--- NOTE | 2023-06-16 21:04 | ECG_ITS ---
Test Reason : WEAKNESS Blood Pressure : / mmHG Vent. Rate : 097 BPM Atrial Rate : 097 BPM P-R Int : 146 ms QRS Dur : 082 ms QT Int : 336 ms P-R-T Axes : 028 025 084 degrees QTc Int : 426 ms Normal sinus rhythm Nonspecific ST and T wave abnormality Abnormal ECG No previous ECGs available Referred By: Kusum Gee Electronically Signed By:COLTON CRESPO MD
[2023-06-16 21:05] VITALS: BP 140/77; PULSE 105; RESP 20; TEMP 37.6; O2SAT 97; BMI 50.2
[2023-06-16 21:30] LABS: Basophils Absolute Auto 0.1 X10*3/uL (0.0-0.2); Basophils Percent Auto 0.4 % (0-2); Eosinophils Absolute Auto 0.2 X10*3/uL (0.0-0.4); Eosinophils Percent Auto 0.9 % (0-4); Hematocrit 46.1 % (37.0-47.0); Hemoglobin 15.5 g/dl (12.0-16.0); Imm Gran Abs Auto 0.11 X10*3/uL (0.00-0.03); Imm Gran Pct Auto 0.6 % (0.0-0.4); Lymphocytes Percent Auto 38.2 % (20-40); MANUAL DIFF FLAG SCAN; Mean Corpuscular HGB Conc 33.6 g/dl (31.0-35.0); Mean Corpuscular Hemoglobin 31.5 pg (27.0-33.0); Mean Corpuscular Volume 93.7 fL (80.0-98.0); Mean Platelet Volume 9.8 fL (9.4-12.3); Monocytes Absolute Auto 1.2 X10*3/uL (0.1-1.2); Monocytes Percent Auto 6.9 % (2-11); Neutrophils Absolute Auto 9.2 x10*3/uL (2.0-8.3); Platelet Count 259 X10*3/uL (160-400); Red Blood Count 4.92 X10*6/uL (4.20-5.50); Red Cell Distribution Width 14.4 % (11.0-16.0); SCAN SMEAR FLAG 1; White Blood Count 17.3 X10*3/uL (4.8-10.8)
[2023-06-16 21:43] LABS: Lymphocytes Absolute Auto 6.6 X10*3/uL (1.2-4.9)
[2023-06-16 21:54] LABS: Alanine Aminotransferase 46 U/L (0-31); Albumin Level 3.8 g/dL (3.5-5.0); Alkaline Phosphatase 98 U/L (39-117); Anion Gap 17 (12-20); Aspartate Amino Transferase 32 U/L (5-31); Bilirubin Direct < 0.2 mg/dL (0.0-0.5); Bilirubin Total 0.2 mg/dL (0.0-1.0); Blood Urea Nitrogen 26 mg/dL (9-16); Calcium 9.4 mg/dL (8.4-10.2); Carbon Dioxide 22 mmol/L (22-29); Chloride 104 mmol/L (96-108); Creatinine Clr Calc Pharmacy 118.4; Estimated Glomerular Filt Rate > 60; Glucose Random 195 mg/dL (60-115); Magnesium 2.2 mg/dL (1.6-2.6); Potassium 5.1 mmol/L (3.3-5.1); Sodium 138 mmol/L (135-145); Total Protein 7.4 g/dL (6.5-8.0)
[2023-06-16 22:01] LABS: Troponin-I High Sensitivity 1547.3 ng/L (<3.5-17.0)
[2023-06-16 22:07] LABS: Influenza A PCR NEGATIVE (Negative); Influenza B PCR NEGATIVE (Negative); Resp Syncy Virus RNA Qual PCR NEGATIVE (Negative); SARS COV2 PCR INHOUSE NEGATIVE (Negative)
[2023-06-16 22:10] VITALS: BP 124/73; PULSE 97; RESP 16; TEMP 36.8; O2SAT 98
--- NOTE | 2023-06-16 22:15 | MHC.EDTECH ---
THIS PCT JUST ASSUMED CARE OF PT ,VITALS TAKEN PT WAS CHANGE INTO HOSPITAL ATTIRE ,PT WAS HOOKED UP TO PUBLIC RELATIONS ASSISTANT ,RN IN ROOM PUTTING IN IV LINE .
[2023-06-16] MEDS: 0.9 % Sodium Chloride 1,000 ML 999 ML IV (22:27)
[2023-06-16 22:31] LABS: SLIDE REVIEW VERIFIED
[2023-06-16 22:41] LABS: INTERNATIONAL NORM RATIO 0.9 (0.9-1.1); Prothrombin Time 10.7 SEC (11.1-13.3)
[2023-06-16 22:43] LABS: D Dimer High Sensitivity 235 NG/ML
[2023-06-16 22:44] LABS: Partial Thromboplastin Time 25.9 SEC (26.0-36.4)
[2023-06-16 22:45] LABS: Lactic Acid 2.1 mmol/L (0.5-2.0)
--- NOTE | 2023-06-16 22:45 | PC.NURSE ---
this rn assumed care of pt @ [id number]. dr fay at bedside for assessment. 20g IV placed in L AC. blood work obtained and sent to lab. IVF infusing. pt states used restroom prior to coming back to room, pt aware we still need urine sample
[2023-06-16 23:16] VITALS: BP 119/59; PULSE 94; RESP 26; TEMP 36.5; O2SAT 95
[2023-06-16] MEDS: cefTRIAXone sodium 1 GM in 0.9 % Sodium Chloride 50 ML IV (23:24)
--- NOTE | 2023-06-16 23:24 | MHC.EDTECH ---
patient repeated trop drawn and sent to lab .
[2023-06-16 23:40] VITALS: BP 133/77; PULSE 96; RESP 19; TEMP 36.8; O2SAT 96
--- NOTE | 2023-06-16 23:46 | MHC.EDTECH ---
pt urine sample collected and sent to lab, vitals rechecked. pt is in pain RN PAGE aware.
[2023-06-16 23:49] LABS: Troponin-I High Sensitivity 1588.8 ng/L (<3.5-17.0)
[2023-06-16] MEDS: Ketorolac Tromethamine 30 MG/ML VIAL IVPUSH (23:49)
[2023-06-16 23:53] LABS: Appearance Urine Clear; Color Urine Yellow; Glucose Urine UA >=1000 mg/dL (Negative); Leukocyte Esterase Urine Negative (Negative); Nitrite Urine Negative (Negative); PH 5.5 (5.0-9.0); Specific Gravity - Urine 1.025 (1.005-1.025); UMIC TRIGGER UACC YES; Urine Blood Negative (Negative); Urine Ketones Trace mg/dL (Negative); Urine Protein Negative (Neg-Trace)
[2023-06-17 00:08] LABS: Bacteria Urine 1+ (None Seen); Hyaline Casts Urine 0-2 /LPF (0-2); RBC Urine 0-2 /HPF (0-2); WBC Urine 0-5 /HPF (0-5)
--- NOTE | 2023-06-17 00:18 | P.HPHOSP_ITS ---
History of Present Illness Date of Service: 06/17/23 Chief Complaint: Pain This is a 43-year-old female with pertinent history of essential hypertension, mixed hyperlipidemia, lumbar degenerative disc disease who presents to the emergency department evaluation chest discomfort. Patient states she had an episode of midsternal chest discomfort 2 days prior to presentation. It was associated with nausea. Patient states she did not do anything for it and it subsided with rest. No history of ACS. Patient presents today as she has multiple complaints including headache, back pain, back spasm and tingling and numbness in her arms. Patient states she does not know what was going on and hence decided to present to the ER. No fever or chills. No cough or dysuria. She was initiated on Lipitor a few days ago. Does have left knee pain that has been ongoing for the last few days. No palpitations, shortness of breath, PND, orthopnea, abdominal pain, changes in urinary or bowel habits. In the emergency department, troponin was found to be elevated and patient was initiated on IV heparin Review of Systems 2 Constitutional: Constitutional: Reports body ache(s) and Reports fatigue Cardiovascular: Cardiovascular: Reports chest pain and Reports chest pain at rest Respiratory: Respiratory: Reports no additional respiratory complaints Gastrointestinal: Gastrointestinal: Reports no additional gastrointestinal complaints Genitourinary: Genitourinary: Reports no additional female genitourinary complaints Endocrine: Endocrine: Reports fatigue [facility] Medical History Herniated lumbar intervertebral disc Hypertension Pertinent family history: No family history of early CAD Social History Alcohol intake: current Smoked in Last 30 Days: Yes Use of substances other than those prescribed or required for medical reasons: No Advance Directives: No Advance Directives Information Provided: Yes Patient : No Meds Allergies Allergy/AdvReac Type Severity Reaction Status Date / Time No Known Allergies Allergy Verified 06/16/23 21:04 Active Medications: Current Medications Acetaminophen (Acetaminophen 325 Mg Tablet) 650 mg PO Q6H PRN PRN Reason: Pain, Mild (Pain Scale 1-3) Aspirin (Aspirin Enteric Coated 325 Mg Tablet.Dr) 325 mg PO ONCE ONE Stop: 06/17/23 00:13 Heparin Sodium/Sodium Chloride (Heparin Sodium,Porcine/1/2ns) 25,000 unit in 250 mls @ 0 mls/hr IVCONT .Q0M [facility]; Protocol Melatonin (Melatonin 3 Mg Tablet) 6 mg PO BEDTIME PRN PRN Reason: Insomnia Ondansetron HCl (Ondansetron Hcl 4 Mg/2 Ml Vial) 4 mg IVPUSH Q8H PRN PRN Reason: Nausea and Vomiting Sodium Chloride (0.9 % Sodium Chloride Flush 3 Ml Syringe) 3 ml IVFLUSH QSHIFT [facility] Physical Exam 2 Vital Signs and Narrative: Vital Signs: Last Vital Signs Temp 98.3 F 06/16/23 23:40 Pulse 96 06/16/23 23:40 Resp 19 06/16/23 23:40 BP 133/77 06/16/23 23:40 Pulse Ox 96 06/16/23 23:40 O2 Del Method Room Air 06/16/23 23:40 BMI result Body Mass Index 50.2 Middle-aged female lying in bed in no distress Neck supple Regular rate and rhythm, S1-S2 heard Regular breath sounds bilaterally, no wheezing or crackles appreciated Abdomen soft nontender, no guarding, no rigidity Patient is awake, alert and oriented to self, place, time and person ; no focal motor deficit Psych: Normal mood Results Labs 06/16/23 21:21 06/16/23 21:21 Labs: Laboratory Results - last 24 hr 06/16/23 06/16/23 06/16/23 21:21 22:24 22:29 MCV 93.7 MCH 31.5 MCHC 33.6 RDW 14.4 Plt Count 259 MPV 9.8 Immature Gran % (Auto) 0.6 H Neut % (Auto) 53.0 Lymph % (Auto) 38.2 [place] % (Auto) 6.9 Eos % (Auto) 0.9 Baso % (Auto) 0.4 Lymph # (Auto) 6.6 H [place] # (Auto) 1.2 Eos # (Auto) 0.2 Baso # (Auto) 0.1 Abs Immat Gran (auto) 0.11 H Absolute Neuts (auto) 9.2 H Absolute Nucleated RBC 0.000 Nucleated RBC % (auto) 0.0 Smear Tech's Comments VERIFIED PT 10.7 L INR 0.9 APTT 25.9 L D-Dimer High Sensitivty 235 Anion Gap 17 Estim Creat Clear Calc 118.4 Estimated GFR > 60 Random Glucose 195 H Lactic Acid 2.1 H* Calcium 9.4 Magnesium 2.2 Total Bilirubin 0.2 Direct Bilirubin < 0.2 AST 32 H ALT 46 H Alkaline Phosphatase 98 Total Creatine Kinase 264 H Total Protein 7.4 Albumin 3.8 Urine Color Urine Appearance Urine pH Ur Specific [place] Urine Protein Urine Glucose (UA) Urine Ketones Urine Blood Urine Nitrite Ur Leukocyte Esterase Urine RBC Urine WBC Ur Squamous Epith Cells Urine Bacteria Hyaline Casts Influenza Type A (PCR) NEGATIVE Influenza Type B (PCR) NEGATIVE RSV RNA Qual (PCR) NEGATIVE SARS-CoV-2 RNA (RT-PCR) NEGATIVE 06/16/23 23:45 MCV MCH MCHC RDW Plt Count MPV Immature Gran % (Auto) Neut % (Auto) Lymph % (Auto) [place] % (Auto) Eos % (Auto) Baso % (Auto) Lymph # (Auto) [place] # (Auto) Eos # (Auto) Baso # (Auto) Abs Immat Gran (auto) Absolute Neuts (auto) Absolute Nucleated RBC Nucleated RBC % (auto) Smear Tech's Comments PT INR APTT D-Dimer High Sensitivty Anion Gap Estim Creat Clear Calc Estimated GFR Random Glucose Lactic Acid Calcium Magnesium Total Bilirubin Direct Bilirubin AST ALT Alkaline Phosphatase Total Creatine Kinase Total Protein Albumin Urine Color Yellow Urine Appearance Clear Urine pH 5.5 Ur Specific [place] 1.025 Urine Protein Negative Urine Glucose (UA) >=1000 H Urine Ketones Trace Urine Blood Negative Urine Nitrite Negative Ur Leukocyte Esterase Negative Urine RBC 0-2 Urine WBC 0-5 Ur Squamous Epith Cells 3-5 Urine Bacteria 1+ Hyaline Casts 0-2 Influenza Type A (PCR) Influenza Type B (PCR) RSV RNA Qual (PCR) SARS-CoV-2 RNA (RT-PCR) Imaging Radiologist's Impressions: Impressions Chest X-Ray 06/16/23 21:37 IMPRESSION: No active cardiopulmonary disease. Knee X-Ray 06/16/23 21:37 IMPRESSION: 1. No acute visible fracture or dislocation. 2. Multicompartment degenerative changes. 3. Large knee joint effusion. Assessment and Plan (1) NSTEMI (non-ST elevated myocardial infarction): Status: Acute Plan This is a 43-year-old female with pertinent history of essential hypertension, mixed hyperlipidemia, lumbar degenerative disc disease who presents to the emergency department evaluation chest discomfort. #. NSTEMI. Will admit patient with cardiac monitoring. Patient was initiated on IV heparin. Administer p.o. aspirin. Consulted Cardiology, appreciate assistance. Obtaining echo #. Hyperglycemia. Initiating Accu-Cheks with sliding scale insulin. Obtain A1c #. Reactive leukocytosis. Chest x-ray and UA without evidence of acute infection #. Essential hypertension: On lisinopril #. Mixed hyperlipidemia. On statin Med rec pending DVT prophylaxis: Heparin Full code Admit as inpatient and will require two night minimum hospital stay for IV heparin. Specialist consult pending Time Spent With Patient Time: Total time managing care of this patient today ____ minutes. Quality Stroke Does the patient have a stroke diagnosis?: No VTE Prior VTE?: No VTE Risk Level:: Medical - moderate - high VTE Device Contraindication: Treatment Not Indicated VTE Drug Contraindication: N/A - Med Ordered
[2023-06-17] MEDS: Heparin Sodium,Porcine 5,000 UNIT/ML VIAL 5000 UNIT IVPUSH (00:23)
[2023-06-17 00:28] LABS: Reflex Lactate? Lactic Acid Added
[2023-06-17] MEDS: Heparin Sodium,Porcine/1/2NS 25,000 UNIT/250 ML IV.SOLN 18.51 UNIT IVCONT (00:41)
[2023-06-17 01:05] LABS: Glucose, Whole Blood 171 mg/dL (60-115)
[2023-06-17] MEDS: Aspirin Enteric Coated 325 MG TABLET.DR PO (01:12)
[2023-06-17] MEDS: Morphine Sulfate 2 MG/ML CARTRIDGE IVPUSH ×3 (01:12→10:42)
[2023-06-17 01:27] LABS: ~Lactic Acid-LAB USE ONLY 1.5 mmol/L (0.5-2.0)
--- NOTE | 2023-06-17 01:41 | MHC.EDTECH ---
PATIENT BELONGING LIST DONE ,EXTRA PILLOWS AND WARM BLANKET GIVEN .
[2023-06-17] MEDS: Morphine Sulfate 4 MG/ML CARTRIDGE IVPUSH (02:36)
[2023-06-17 04:07] VITALS: BP 128/56; PULSE 86; RESP 17; TEMP 36.5; O2SAT 98
[2023-06-17 05:56] LABS: Estimated Average Glucose 123 mg/dL; Hemoglobin A1c % 5.9 % (<6.0)
--- NOTE | 2023-06-17 06:02 | PC.NURSE ---
lights dimmed pt noted to be sleeping. pt self removed from manager privacy. this rn replaced manager privacy
[2023-06-17 06:47] LABS: Basophils Absolute Auto 0.1 X10*3/uL (0.0-0.2); Basophils Percent Auto 0.5 % (0-2); Eosinophils Absolute Auto 0.2 X10*3/uL (0.0-0.4); Hematocrit 43.6 % (37.0-47.0); Hemoglobin 14.2 g/dl (12.0-16.0); Imm Gran Abs Auto 0.09 X10*3/uL (0.00-0.03); Imm Gran Pct Auto 0.6 % (0.0-0.4); Lymphocytes Percent Auto 42.2 % (20-40); MANUAL DIFF FLAG SCAN; Mean Corpuscular HGB Conc 32.6 g/dl (31.0-35.0); Mean Corpuscular Hemoglobin 31.4 pg (27.0-33.0); Mean Corpuscular Volume 96.5 fL (80.0-98.0); Monocytes Absolute Auto 0.9 X10*3/uL (0.1-1.2); Monocytes Percent Auto 5.7 % (2-11); Neutrophils Absolute Auto 7.8 x10*3/uL (2.0-8.3); Platelet Count 221 X10*3/uL (160-400); Red Blood Count 4.52 X10*6/uL (4.20-5.50); Red Cell Distribution Width 14.5 % (11.0-16.0); SCAN SMEAR FLAG 1; White Blood Count 15.5 X10*3/uL (4.8-10.8)
[2023-06-17 06:51] LABS: Lymphocytes Absolute Auto 6.5 X10*3/uL (1.2-4.9)
[2023-06-17 07:00] LABS: Anion Gap 13 (12-20); Blood Urea Nitrogen 28 mg/dL (9-16); Carbon Dioxide 22 mmol/L (22-29); Chloride 106 mmol/L (96-108); Estimated Glomerular Filt Rate > 60; Glucose Random 186 mg/dL (60-115); Potassium 4.3 mmol/L (3.3-5.1); Sodium 137 mmol/L (135-145)
--- NOTE | 2023-06-17 07:00 | CA_ITS ---
Transthoracic Echocardiogram Patient (Last, First, Middle): Patricia Brenner, Gender: Female Date of : 1980 Age: 43 Procedure Date: 06/17/2023 Procedure Type: Transthoracic Echocardiogram Location: ER Height: 175.26 cm Weight: 154.22 kg BSA: 2.59 m2 Heart Rate: 82 bpm BP: 116 / 61 mmHg Bridge Repair Crew Person: SB Referring MD: Stacey Bryant MD Feed Mill Tender: Ishan Wagner MD Symptoms: NSTEMI Study Quality: Fair ECG Rhythm: Sinus Conclusions: - Normal left ventricular size and systolic function. There is moderately increased left ventricular wall thickness. The visually estimated ejection fraction is between 55-60%. - Diastolic function is indeterminate on the basis of available data. Spectral Doppler is indicative of an impaired relaxation filling pattern. E/E prime ratio is between 8 and 15 consistent with indeterminate filling pressures. - The basal inferior segment is akinetic. - There is normal right ventricular systolic function. RV size is at upper limit of normal. Findings Procedure Information Contrast agent, definity, is being given per protocol without apparent complications. The quality of the study was technically difficult. The study quality is limited by patients body habitus. Left Ventricle Normal left ventricular size and systolic function. There is moderately increased left ventricular wall thickness. The visually estimated ejection fraction is between 55-60%. There is evidence of regional wall motion abnormalities. Diastolic function is indeterminate on the basis of available data. Spectral Doppler is indicative of an impaired relaxation filling pattern. E/E prime ratio is between 8 and 15 consistent with indeterminate filling pressures. Wall Motion Rest Echo Findings The basal inferior segment is akinetic. Right Ventricle There is normal right ventricular systolic function. RV size is at upper limit of normal. Atria The left atrium is normal in size. Aortic Valve Normal aortic valve structure and function. There is no aortic valve stenosis. There is no aortic valve regurgitation. Mitral Valve Normal mitral valve structure and function. There is no mitral valve regurgitation. There is no mitral valve stenosis. Pulmonic Valve Normal pulmonic valve structure and function. There is trace pulmonic valve regurgitation. Tricuspid Valve Normal tricuspid valve structure. Tricuspid regurgitation envelope is inadequate for calculation of right ventricular systolic pressure. Normal right atrial pressure. Great Vessels All visible segments of the aorta are normal in size. The visualized portions of the pulmonary artery and branches are normal. Venous The inferior vena cava is normal in size and collapses greater than 50% with inspiration. Pericardium/Pleural There is no evidence of pericardial effusion. Prior Study Comparison No prior study available for comparison. Measurements 2D Linear Measurements IVSd: 1.31 0.6-0.9/0.6-1.0 cm LVIDd: 4.74 3.9-5.3/4.2-5.9 cm LVIDd Index: 1.83 2.4-3.2/2.2-3.1 cm/m2 LVIDs: 3.63 2.0-3.6 cm LVPWd: 1.20 0.7-1.1 cm LA Diam: 3.00 2.7-3.8/3.0-4.0 cm LAIDs Index: 1.16 1.5-2.3 cm/m2 LV Mass: 285.56 67-162/88-224 g LV Mass Index: 110.26 43-95/49-115 g/m2 LVOT Diam: 2.20 3.0+(-)1.3 cm 2D Systolic Function EF 4C: 64.90 >55% EF 2C: 60.00 >55% EF BiP: 62.30 >55% Mitral Valve MV Pk E: 0.85 MV PK A: 0.57 MV Decel Time: 251.00 E/A: 1.50 E'Lateral: 8.49 E'Medial: 4.79 E/E' Med: 17.70 E/E' Lat: 10.00 PHT: 74.00 MVA PHT: 2.97 Decel [place]: 3.38 Aortic Valve AoV Pk Pito: 1.18 AoV Pk Grad: 6.00 ION: 3.77 LVOT LVOT Pk Pito: 1.17 LVOT Mn Pito: 0.78 LVOT VTI: 0.18 LVOT Pk Grad: 5.00 LVOT Mn Grad: 3.00 LVOT Diam: 2.20 LVOT Area: 3.80 Diastolic Function MV Pk E: 0.85 MV Pk A: 0.57 E/A: 1.50 E'Medial: 4.79 E/E' Med: 17.70 E' Laterial: 8.49 E/E' Lat: 10.00 Right Ventricle TAPSE (mm): 17.10 Tricuspid Valve RA Press: 8.00 Great Vessels Aorta Sinus of Valsalva: 3.20 2.0-3.5 cm Ao Asc: 3.00 2.1-3.4 cm Pulmonary Valve PV Pk Pito: 1.11 Peak PV Grad: 5.00 Updated in Other Vendor System with Status of Final Ishan Wagner MD electronically signed on 06/17/2023 12:42:38 PM with status of Final
[2023-06-17 07:03] LABS: PTT Heparin Drip 32.1 SEC (53-77.9)
[2023-06-17 07:15] VITALS: BP 116/61; PULSE 84; RESP 20; O2SAT 97
[2023-06-17 07:16] LABS: Troponin-I High Sensitivity 1032.7 ng/L (<3.5-17.0)
--- NOTE | 2023-06-17 07:21 | PC.NURSE ---
spoke to gina at pharmacy because this rn needed to adjust the heparin drip, pt's appt came back at 32.1 and according to the protocol needed bolus 80mg but there is no bolus ordered at this time, the drip did get adjusted according to the protocol. gina is going to reach out the providers pt is currently resting on her sided, denies chest pain, but is reporting left leg pain / witch seems to be chronic and pt is reporting some sob, ls clear, ns on the monitor and vs stable
[2023-06-17 07:38] LABS: SLIDE REVIEW VERIFIED
[2023-06-17] MEDS: Heparin Sodium,Porcine 5,000 UNIT/ML VIAL 10000 UNIT IVPUSH (07:39)
[2023-06-17 07:41] LABS: Glucose, Whole Blood 140 mg/dL (60-115)
[2023-06-17] MEDS: 0.9 % Sodium Chloride Flush 3 ML SYRINGE IVFLUSH (07:43)
--- NOTE | 2023-06-17 08:04 | PHA.MEDREC ---
Pharmacy Consult ? Medication Reconciliation Pharmacy has completed the medication reconciliation.MED REC DONE USING CLAIM HISTORY. ADJUSTMENTS MADE TO MED REC DONE BY NURSING OVERNIGHT.
--- NOTE | 2023-06-17 08:45 | MHC.CM.PN ---
Patient lives in an apartment with her 2 children ages 16 & 22 years of age. 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 CM has initiated and will follow for dc planning. PCP is from [facility] in [place].
[2023-06-17] MEDS: Aspirin Enteric Coated 81 MG TABLET.DR PO (08:53)
[2023-06-17] MEDS: Omeprazole 20 MG CAPSULE.DR PO (08:53)
[2023-06-17] MEDS: lisinopriL 10 MG TABLET 30 MG PO (08:54)
[2023-06-17] MEDS: Nicotine Polacrilex 2 MG GUM BUCCAL (08:54)
[2023-06-17] MEDS: Clopidogrel Bisulfate 75 MG TABLET PO (08:54)
[2023-06-17] MEDS: Clopidogrel Bisulfate 75 MG TABLET 225 MG PO (10:20)
--- NOTE | 2023-06-17 10:40 | P.CONCA_ITS ---
History of Present Illness History of Present Illness Date of Service: 06/17/23 Chief complaint: NSTEMI Narrative: 43-year-old female who is presenting for chest discomfort and NSTEMI. She is a smoker and has been smoking half pack per day for long time, has hypertension and hyperlipidemia. No strong family history of coronary disease. No drug abuse history. Social drinker. She said a day or 2 ago (she is unsure when) she had 30 minutes to 1 hour of upper abdominal and chest discomfort. She said she rested and after some time the symptoms resolved. Since then she has been feeling tired and fatigued. 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 She said she was feeling not right and tired and decided to come to the ER. She ruled in for NSTEMI and was admitted. She was given 75 mg of Plavix and aspirin load and was started on heparin drip. She is denying any symptoms currently. She has no bleeding issues. She has an IUD. [facility] Past Medical History Medical History Herniated lumbar intervertebral disc Hypertension Social History Social History Alcohol intake: current Smoked in Last 30 Days: Yes Use of substances other than those prescribed or required for medical reasons: No Advance Directives: No Advance Directives Information Provided: Yes Patient : No service: No Meds Allergies Allergy/AdvReac Type Severity Reaction Status Date / Time No Known Allergies Allergy Verified 06/16/23 21:04 Active Medications: Current Medications Acetaminophen (Acetaminophen 325 Mg Tablet) 650 mg PO Q6H PRN PRN Reason: Pain, Mild (Pain Scale 1-3) Aspirin (Aspirin Enteric Coated 81 Mg Tablet.) 81 mg PO DAILY [facility] Last Admin: 06/17/23 08:53 Dose: 81 mg Atorvastatin Calcium (Atorvastatin Calcium 80 Mg Tablet) 80 mg PO BEDTIME [facility] Clopidogrel Bisulfate (Clopidogrel Bisulfate 75 Mg Tablet) 75 mg PO DAILY [facility] Last Admin: 06/17/23 08:54 Dose: 75 mg Dextrose (Dextrose 50 % 25 Gm/50 Ml Syringe) 25 gm IVPUSH Q15M PRN; Protocol PRN Reason: per Hypoglycemia Standing Ord. Glucose (Glucose Gel 15 Gm Gel..Gram.) 15 gm PO Q15M PRN; Protocol PRN Reason: per Hypoglycemia Standing Ord. Heparin Sodium (Porcine) (Heparin Sodium,Porcine 5,000 Unit/Ml Vial) 6,200 unit 40 unit/kg (6200 unit) IVPUSH PROTOCOL BOLUS PRN; Protocol PRN Reason: 40 unit/kg - Heparin Protocol Heparin Sodium (Porcine) (Heparin Sodium,Porcine 5,000 Unit/Ml Vial) 10,000 unit IVPUSH PROTOCOL BOLUS PRN; Protocol PRN Reason: 80 unit/kg - Heparin Protocol Last Admin: 06/17/23 07:39 Dose: 10,000 unit Heparin Sodium/Sodium Chloride (Heparin Sodium,Porcine/1/2ns) 25,000 unit in 250 mls @ 0 mls/hr IVCONT .Q0M [facility]; Protocol Last Titration: 06/17/23 07:12 Dose: 10.48 units/kg/hr, 16.16 mls/hr Insulin Human Lispro (Insulin Lispro 100 Unit/Ml 3 Ml Vial) 0 unit SUBCUT QIDACHS [facility]; Protocol Last Admin: 06/17/23 07:42 Dose: Not Given Lisinopril (Lisinopril 10 Mg Tablet) 30 mg PO DAILY [facility]; Protocol Last Admin: 06/17/23 08:54 Dose: 30 mg Melatonin (Melatonin 3 Mg Tablet) 6 mg PO BEDTIME PRN PRN Reason: Insomnia Methocarbamol (Methocarbamol 750 Mg Tablet) 750 mg PO TID PRN PRN Reason: muscle spasm Morphine Sulfate (Morphine Sulfate 2 Mg/Ml Cartridge) 2 mg IVPUSH Q4H PRN; Protocol PRN Reason: Pain, Severe (Pain Scale 7-10) Last Admin: 06/17/23 06:40 Dose: 2 mg Nicotine Polacrilex (Nicotine Polacrilex 2 Mg Gum) 2 mg BUCCAL Q1H PRN PRN Reason: cravings Last Admin: 06/17/23 08:54 Dose: 2 mg Omeprazole (Omeprazole 20 Mg Capsule.Dr) 20 mg PO DAILY@0630 [facility] Last Admin: 06/17/23 08:53 Dose: 20 mg Ondansetron HCl (Ondansetron Hcl 4 Mg/2 Ml Vial) 4 mg IVPUSH Q8H PRN PRN Reason: Nausea and Vomiting Sodium Chloride (0.9 % Sodium Chloride Flush 3 Ml Syringe) 3 ml IVFLUSH QSHIFT [facility] Last Admin: 06/17/23 07:43 Dose: 3 ml Tizanidine HCl (Tizanidine Hcl 4 Mg Tablet) 4 mg PO BID PRN PRN Reason: muscle spasticity Tramadol HCl (Tramadol Hcl 50 Mg Tablet) 50 mg PO Q4H PRN PRN Reason: Pain, Moderate(Pain Scale 4-6) Tramadol HCl (Tramadol Hcl 50 Mg Tablet) 50 mg PO QID PRN PRN Reason: moderate pain Home Medications Medication Instructions Recorded Confirmed Last Taken Type hydrochlorothiazide 12.5 mg capsule 12.5 mg PO DAILY 06/17/23 06/17/23 Unknown History lisinopril 30 mg tablet 30 mg PO DAILY 06/17/23 06/17/23 Unknown History tramadol 50 mg tablet 50 mg PO QID PRN pain 06/17/23 06/17/23 Unknown History Physical Exam 2 Vital Signs: Vital Signs: Last Vital Signs Temp 97.7 F 06/17/23 04:07 Pulse 84 06/17/23 07:15 Resp 20 06/17/23 07:15 BP 116/61 06/17/23 07:15 Pulse Ox 97 06/17/23 07:15 O2 Del Method Room Air 06/17/23 07:15 BMI result Body Mass Index 50.2 GENERAL APPEARANCE: in no acute distress, pleasant. Obese. NECK: no carotid bruit, no jugular venous distention. SKIN: no suspicious lesions, warm and dry. HEART: no murmurs, regular rate and rhythm. LUNGS: clear to auscultation bilaterally. ABDOMEN: soft, nontender. EXTREMITIES: no edema. PERIPHERAL PULSES: equal. NEUROLOGIC: No gross deficits, AAO X 3 Objective Labs and Meds 06/17/23 06:38 06/17/23 06:38 Lab results: Laboratory Results - last 24 hr 06/16/23 06/16/23 06/16/23 21:21 22:24 22:29 WBC 17.3 H RBC 4.92 Hgb 15.5 Hct 46.1 MCV 93.7 MCH 31.5 MCHC 33.6 RDW 14.4 Plt Count 259 MPV 9.8 Immature Gran % (Auto) 0.6 H Neut % (Auto) 53.0 Lymph % (Auto) 38.2 [place] % (Auto) 6.9 Eos % (Auto) 0.9 Baso % (Auto) 0.4 Lymph # (Auto) 6.6 H [place] # (Auto) 1.2 Eos # (Auto) 0.2 Baso # (Auto) 0.1 Abs Immat Gran (auto) 0.11 H Absolute Neuts (auto) 9.2 H Absolute Nucleated RBC 0.000 Nucleated RBC % (auto) 0.0 Smear Tech's Comments VERIFIED Smear Path Review PT 10.7 L INR 0.9 APTT 25.9 L aPTT Heparin Protocol D-Dimer High Sensitivty 235 Sodium 138 Potassium 5.1 Chloride 104 Carbon Dioxide 22 Anion Gap 17 BUN 26 H Creatinine 0.96 Estim Creat Clear Calc 118.4 Estimated GFR > 60 POC Glucose Random Glucose 195 H Estimat Average Glucose 123 Hemoglobin A1c % 5.9 Lactic Acid 2.1 H* Lactic Acid F/U @ 2Hr Calcium 9.4 Magnesium 2.2 Total Bilirubin 0.2 Direct Bilirubin < 0.2 AST 32 H ALT 46 H Alkaline Phosphatase 98 Total Creatine Kinase 264 H Troponin I High Sens 1547.3 H* Total Protein 7.4 Albumin 3.8 Urine Color Urine Appearance Urine pH Ur Specific [place] Urine Protein Urine Glucose (UA) Urine Ketones Urine Blood Urine Nitrite Ur Leukocyte Esterase Urine RBC Urine WBC Ur Squamous Epith Cells Urine Bacteria Hyaline Casts Influenza Type A (PCR) NEGATIVE Influenza Type B (PCR) NEGATIVE RSV RNA Qual (PCR) NEGATIVE SARS-CoV-2 RNA (RT-PCR) NEGATIVE 06/16/23 06/16/23 06/17/23 23:21 23:45 01:01 WBC RBC Hgb Hct MCV MCH MCHC RDW Plt Count MPV Immature Gran % (Auto) Neut % (Auto) Lymph % (Auto) [place] % (Auto) Eos % (Auto) Baso % (Auto) Lymph # (Auto) [place] # (Auto) Eos # (Auto) Baso # (Auto) Abs Immat Gran (auto) Absolute Neuts (auto) Absolute Nucleated RBC Nucleated RBC % (auto) Smear Tech's Comments Smear Path Review PT INR APTT aPTT Heparin Protocol D-Dimer High Sensitivty Sodium Potassium Chloride Carbon Dioxide Anion Gap BUN Creatinine Estim Creat Clear Calc Estimated GFR POC Glucose 171 H Random Glucose Estimat Average Glucose Hemoglobin A1c % Lactic Acid Lactic Acid F/U @ 2Hr Calcium Magnesium Total Bilirubin Direct Bilirubin AST ALT Alkaline Phosphatase Total Creatine Kinase Troponin I High Sens 1588.8 H* Total Protein Albumin Urine Color Yellow Urine Appearance Clear Urine pH 5.5 Ur Specific [place] 1.025 Urine Protein Negative Urine Glucose (UA) >=1000 H Urine Ketones Trace Urine Blood Negative Urine Nitrite Negative Ur Leukocyte Esterase Negative Urine RBC 0-2 Urine WBC 0-5 Ur Squamous Epith Cells 3-5 Urine Bacteria 1+ Hyaline Casts 0-2 Influenza Type A (PCR) Influenza Type B (PCR) RSV RNA Qual (PCR) SARS-CoV-2 RNA (RT-PCR) 06/17/23 06/17/23 06/17/23 01:08 06:38 07:37 WBC 15.5 H RBC 4.52 Hgb 14.2 Hct 43.6 MCV 96.5 MCH 31.4 MCHC 32.6 RDW 14.5 Plt Count 221 MPV 10.0 Immature Gran % (Auto) 0.6 H Neut % (Auto) 50.0 Lymph % (Auto) 42.2 H [place] % (Auto) 5.7 Eos % (Auto) 1.0 Baso % (Auto) 0.5 Lymph # (Auto) 6.5 H [place] # (Auto) 0.9 Eos # (Auto) 0.2 Baso # (Auto) 0.1 Abs Immat Gran (auto) 0.09 H Absolute Neuts (auto) 7.8 Absolute Nucleated RBC 0.000 Nucleated RBC % (auto) 0.0 Smear Tech's Comments VERIFIED Smear Path Review SEE NOTE PT INR APTT aPTT Heparin Protocol 32.1 L D-Dimer High Sensitivty Sodium 137 Potassium 4.3 Chloride 106 Carbon Dioxide 22 Anion Gap 13 BUN 28 H Creatinine 0.91 Estim Creat Clear Calc 125.0 Estimated GFR > 60 POC Glucose 140 H Random Glucose 186 H Estimat Average Glucose Hemoglobin A1c % Lactic Acid Lactic Acid F/U @ 2Hr 1.5 Calcium 9.0 Magnesium Total Bilirubin Direct Bilirubin AST ALT Alkaline Phosphatase Total Creatine Kinase Troponin I High Sens 1032.7 H* Total Protein Albumin Urine Color Urine Appearance Urine pH Ur Specific [place] Urine Protein Urine Glucose (UA) Urine Ketones Urine Blood Urine Nitrite Ur Leukocyte Esterase Urine RBC Urine WBC Ur Squamous Epith Cells Urine Bacteria Hyaline Casts Influenza Type A (PCR) Influenza Type B (PCR) RSV RNA Qual (PCR) SARS-CoV-2 RNA (RT-PCR) Imaging Radiologist's impression: Impressions Chest X-Ray 06/16/23 21:37 IMPRESSION: No active cardiopulmonary disease. Knee X-Ray 06/16/23 21:37 IMPRESSION: 1. No acute visible fracture or dislocation. 2. Multicompartment degenerative changes. 3. Large knee joint effusion. Assessment and Plan (1) NSTEMI (non-ST elevated myocardial infarction): Status: Acute Plan Pleasant 43 year female who is here for chest discomfort that happened a day to 2 ago. This was an episode under 1 hour in duration. She has ruled in for NSTEMI in the ER and has been admitted for further care. To my read, the inferior leads have subtle elevations with some reciprocal changes in the lateral leads. As mentioned she is completely symptom free currently. I have discussed with she has ACS and will need further management starting with a diagnostic coronary angiogram. We will get an echocardiogram to assess wall motion abnormality and LV function and any valvular pathology. Continue aspirin and heparin drip. If Plavix has already been given then make sure that a load was given to the patient of 300 mg at least. Keep NPO going forward. Will try to do a diagnostic angiogram today. We are transferring her to [facility] and she has been accepted by the hospital medicine team there. Thank you for allowing me to participate in the care of your patient. Please feel free to contact me if you have any questions. Time Spent With Patient Time: Total time managing care of this patient today ____ minutes. Procedures Date of Service Date of Service: 06/17/23
--- NOTE | 2023-06-17 10:44 | PM.DS ---
DS: Providers Provider Date of Service: 06/17/23 Date of admission: 06/17/23 00:13 Primary care physician: Unknown Physician Consults: 06/17/23 00:13 Consult to Cardiology Routine Consulting Provider: [facility] Cardiovascular Services Reason for consultation: elevated troponin Has provider been notified: Yes DS: Diagnosis Discharge Diagnosis (1) NSTEMI (non-ST elevated myocardial infarction): Status: Acute DS: Summary Hospital Course Hospital Course: from initial hpi: 43-year-old female with pertinent history of essential hypertension, mixed hyperlipidemia, lumbar degenerative disc disease who presents to the emergency department evaluation chest discomfort. Patient states she had an episode of midsternal chest discomfort 2 days prior to presentation. It was associated with nausea. Patient states she did not do anything for it and it subsided with rest. No history of ACS. Patient presents today as she has multiple complaints including headache, back pain, back spasm and tingling and numbness in her arms. Patient states she does not know what was going on and hence decided to present to the ER. No fever or chills. No cough or dysuria. She was initiated on Lipitor a few days ago. Does have left knee pain that has been ongoing for the last few days. No palpitations, shortness of breath, PND, orthopnea, abdominal pain, changes in urinary or bowel habits. In the emergency department, troponin was found to be elevated and patient was initiated on IV heparin hospital course: Patient was admitted for NSTEMI. Treated with IV heparin, dual antiplatelet, statin, was seen by Cardiology recommended transfer to [facility] for cardiac catheterization. She was noted to have hyperglycemia, A1c of 5.9 consistent with prediabetes. For morbid obesity weight loss recommended. For hypertension was continue lisinopril. Time Spent with Patient Time attestation: Total time managing care of this patient today ____ minutes. Discharge coordination time: Greater than 30 minutes Quality: Safe Use of Opioids Does Pt have an Active Cancer Diagnosis on the Problem List?: No Quality: Stroke Does the patient have a stroke diagnosis?: No Physical Exam Vital Signs: Vital Signs: Last Vital Signs Temp 97.7 F 06/17/23 04:07 Pulse 84 06/17/23 07:15 Resp 20 06/17/23 07:15 BP 116/61 06/17/23 07:15 Pulse Ox 97 06/17/23 07:15 O2 Del Method Room Air 06/17/23 07:15 BMI result Body Mass Index 50.2 General: AO X 3, no acute distress Resp: CTA bilateral, no accessory muscles used CVS: S1,S2,RRR GI: soft, non tender, non distended Neuro: motor grossly intact, alert Psych: appropriate affect, appropriate insight DS: Data Data Completed and Pending Labs on day of discharge: Laboratory Results - last 24 hr 06/16/23 06/16/23 06/16/23 21:21 22:24 22:29 WBC 17.3 H RBC 4.92 Hgb 15.5 Hct 46.1 MCV 93.7 MCH 31.5 MCHC 33.6 RDW 14.4 Plt Count 259 MPV 9.8 Immature Gran % (Auto) 0.6 H Neut % (Auto) 53.0 Lymph % (Auto) 38.2 [place] % (Auto) 6.9 Eos % (Auto) 0.9 Baso % (Auto) 0.4 Lymph # (Auto) 6.6 H [place] # (Auto) 1.2 Eos # (Auto) 0.2 Baso # (Auto) 0.1 Abs Immat Gran (auto) 0.11 H Absolute Neuts (auto) 9.2 H Absolute Nucleated RBC 0.000 Nucleated RBC % (auto) 0.0 Smear Tech's Comments VERIFIED Smear Path Review PT 10.7 L INR 0.9 APTT 25.9 L aPTT Heparin Protocol D-Dimer High Sensitivty 235 Sodium 138 Potassium 5.1 Chloride 104 Carbon Dioxide 22 Anion Gap 17 BUN 26 H Creatinine 0.96 Estim Creat Clear Calc 118.4 Estimated GFR > 60 POC Glucose Random Glucose 195 H Estimat Average Glucose 123 Hemoglobin A1c % 5.9 Lactic Acid 2.1 H* Lactic Acid F/U @ 2Hr Calcium 9.4 Magnesium 2.2 Total Bilirubin 0.2 Direct Bilirubin < 0.2 AST 32 H ALT 46 H Alkaline Phosphatase 98 Total Creatine Kinase 264 H Troponin I High Sens 1547.3 H* Total Protein 7.4 Albumin 3.8 Urine Color Urine Appearance Urine pH Ur Specific [place] Urine Protein Urine Glucose (UA) Urine Ketones Urine Blood Urine Nitrite Ur Leukocyte Esterase Urine RBC Urine WBC Ur Squamous Epith Cells Urine Bacteria Hyaline Casts Influenza Type A (PCR) NEGATIVE Influenza Type B (PCR) NEGATIVE RSV RNA Qual (PCR) NEGATIVE SARS-CoV-2 RNA (RT-PCR) NEGATIVE 06/16/23 06/16/23 06/17/23 23:21 23:45 01:01 WBC RBC Hgb Hct MCV MCH MCHC RDW Plt Count MPV Immature Gran % (Auto) Neut % (Auto) Lymph % (Auto) [place] % (Auto) Eos % (Auto) Baso % (Auto) Lymph # (Auto) [place] # (Auto) Eos # (Auto) Baso # (Auto) Abs Immat Gran (auto) Absolute Neuts (auto) Absolute Nucleated RBC Nucleated RBC % (auto) Smear Tech's Comments Smear Path Review PT INR APTT aPTT Heparin Protocol D-Dimer High Sensitivty Sodium Potassium Chloride Carbon Dioxide Anion Gap BUN Creatinine Estim Creat Clear Calc Estimated GFR POC Glucose 171 H Random Glucose Estimat Average Glucose Hemoglobin A1c % Lactic Acid Lactic Acid F/U @ 2Hr Calcium Magnesium Total Bilirubin Direct Bilirubin AST ALT Alkaline Phosphatase Total Creatine Kinase Troponin I High Sens 1588.8 H* Total Protein Albumin Urine Color Yellow Urine Appearance Clear Urine pH 5.5 Ur Specific [place] 1.025 Urine Protein Negative Urine Glucose (UA) >=1000 H Urine Ketones Trace Urine Blood Negative Urine Nitrite Negative Ur Leukocyte Esterase Negative Urine RBC 0-2 Urine WBC 0-5 Ur Squamous Epith Cells 3-5 Urine Bacteria 1+ Hyaline Casts 0-2 Influenza Type A (PCR) Influenza Type B (PCR) RSV RNA Qual (PCR) SARS-CoV-2 RNA (RT-PCR) 06/17/23 06/17/23 06/17/23 01:08 06:38 07:37 WBC 15.5 H RBC 4.52 Hgb 14.2 Hct 43.6 MCV 96.5 MCH 31.4 MCHC 32.6 RDW 14.5 Plt Count 221 MPV 10.0 Immature Gran % (Auto) 0.6 H Neut % (Auto) 50.0 Lymph % (Auto) 42.2 H [place] % (Auto) 5.7 Eos % (Auto) 1.0 Baso % (Auto) 0.5 Lymph # (Auto) 6.5 H [place] # (Auto) 0.9 Eos # (Auto) 0.2 Baso # (Auto) 0.1 Abs Immat Gran (auto) 0.09 H Absolute Neuts (auto) 7.8 Absolute Nucleated RBC 0.000 Nucleated RBC % (auto) 0.0 Smear Tech's Comments VERIFIED Smear Path Review SEE NOTE PT INR APTT aPTT Heparin Protocol 32.1 L D-Dimer High Sensitivty Sodium 137 Potassium 4.3 Chloride 106 Carbon Dioxide 22 Anion Gap 13 BUN 28 H Creatinine 0.91 Estim Creat Clear Calc 125.0 Estimated GFR > 60 POC Glucose 140 H Random Glucose 186 H Estimat Average Glucose Hemoglobin A1c % Lactic Acid Lactic Acid F/U @ 2Hr 1.5 Calcium 9.0 Magnesium Total Bilirubin Direct Bilirubin AST ALT Alkaline Phosphatase Total Creatine Kinase Troponin I High Sens 1032.7 H* Total Protein Albumin Urine Color Urine Appearance Urine pH Ur Specific [place] Urine Protein Urine Glucose (UA) Urine Ketones Urine Blood Urine Nitrite Ur Leukocyte Esterase Urine RBC Urine WBC Ur Squamous Epith Cells Urine Bacteria Hyaline Casts Influenza Type A (PCR) Influenza Type B (PCR) RSV RNA Qual (PCR) SARS-CoV-2 RNA (RT-PCR) Discharge Plan Discharge Anticipated Discharge Date/Time: 06/17/23 10:40 Patient Disposition: Xfer Acute Care Hospital Discharge Diagnosis: nstemi Referrals: Physician,Unknown J [Primary Care Provider] - 1 Week Discharge Medications: New atorvastatin 80 mg Tablet 80 mg PO BEDTIME Qty: 0 0RF clopidogrel 75 mg Tablet 75 mg PO DAILY Qty: 0 0RF aspirin 81 mg Tablet,Delayed Release (Dr/Ec) 81 mg PO DAILY Qty: 0 0RF heparin(porcine) in 0.45% NaCl 25,000 unit/250 mL Parenteral Solution 25,000 unit continuous IV infusion .Q0M Qty: 0 0RF Continued tramadol 50 mg tablet 50 mg PO QID PRN (Reason: pain) hydrochlorothiazide 12.5 mg capsule 12.5 mg PO DAILY lisinopril 30 mg tablet 30 mg PO DAILY methocarbamol 750 mg tablet 750 mg PO TID PRN (Reason: muscle spasm) Qty: 20 0RF tizanidine 4 mg tablet 4 mg PO BID PRN (Reason: muscle spasticity) 30 Days Qty: 60 0RF Discontinued celecoxib 200 mg capsule 200 mg PO BID PRN (Reason: for pain) Qty: 60 0RF atorvastatin 10 mg tablet 10 mg PO DAILY Discharge Orders: Discharge Order (Routine); Ordered 06/17/23 Ordered By: Tommy Hughes Diet: Advance to usual diet Activity on Discharge: As tolerated Stand Alone Forms: Patient Portal Discharge page Care Plan Goals: manage nstemi Health Concerns: nstemi Plan of Treatment: [place] [facility] [place] Assessment: see above
--- NOTE | 2023-06-17 10:47 | MHC.CM.PN ---
Patient will be dc/transferred to [facility] today.
[2023-06-17] MEDS: traMADoL HCL 50 MG TABLET PO (10:53)
--- NOTE | 2023-06-17 11:06 | PC.NURSE ---
report given to magnus wills at [facility]
[2023-06-17 12:12] LABS: PTT Heparin Drip 70.2 SEC (53-77.9)
[2023-06-17 12:39] LABS: HCG Quantitative < 2 mIU/mL
== END 2023-06-17 11:59 | disposition short-term general hospital (02) | DRG 190 ==
LOC: HO.ED 22:45 → HO.EDOVER 06-17 00:15
PROVIDERS: Internal Medicine Cardiovascular Disease; Physician Assistant Medical; Admitting Provider Student in an Organized Health Care Education/Training Program; Emergency Provider Internal Medicine; Visit Provider Internal Medicine
DX: I21.4 Non-ST elevation (NSTEMI) myocardial infarction (principal); E78.2 Mixed hyperlipidemia; I10 Essential (primary) hypertension; Z20.822 Contact with and (suspected) exposure to COVID-19; Z79.899 Other long term (current) drug therapy
CPT/HCPCS: 0241U; 36415; 71046; 73562; 80048; 80076; 81001; 82550; 82947; 83036; 83605; 83735; 84484; 84702; 85025; 85379; 85610; 85730; 87040; 93005; 93306; 99285; J0696; J1643; J1885; J2270; Q9957

== ENCOUNTER → 2023-06-17 00:13 | Outpatient (BNV) | payer MEDICAID, SELFPAY | PROVIDERS: Admitting Provider Student in an Organized Health Care Education/Training Program; Emergency Provider Internal Medicine; Visit Provider Student in an Organized Health Care Education/Training Program | DX: I21.4 Non-ST elevation (NSTEMI) myocardial infarction (principal) | CPT/HCPCS: 99236; 99499 ==

== ENCOUNTER → 2023-06-17 00:13 | Outpatient (BNV) | payer MEDICAID, SELFPAY | PROVIDERS: Admitting Provider Student in an Organized Health Care Education/Training Program; Emergency Provider Internal Medicine; Visit Provider Internal Medicine Cardiovascular Disease | DX: I21.4 Non-ST elevation (NSTEMI) myocardial infarction (principal) | CPT/HCPCS: 93306; 99223 ==

== ENCOUNTER → 2023-06-17 23:59 | Outpatient (BNV) | payer MEDICAID, SELFPAY | PROVIDERS: Visit Provider Internal Medicine Cardiovascular Disease | DX: I21.4 Non-ST elevation (NSTEMI) myocardial infarction (principal) | CPT/HCPCS: 92941; 92978; 93458; 99152 ==

== ENCOUNTER 2023-06-23 14:13 | Outpatient (AMB) | payer MEDICAID, SELFPAY ==
--- NOTE | 2023-06-23 14:26 | MHC.OFFVIS ---
Intake Vital Signs 06/23/23 14:47 Height 5 ft 9 in BP 90/50 L Blood Pressure Location Lt brachial Position Sitting Pulse 94 Pulse Source Pulse Oximeter Pulse Oximetry (%) 96 Intake Visit Reasons: follow-up cardiac cath ? return to work Allergies atorvastatin Adverse Reaction (Intermediate, Verified 06/24/23 07:52) myalgia Medication List - Last Reconciled 06/23/23 by Falguni Sexton NP aspirin 81 mg PO DAILY hydrochlorothiazide 12.5 mg PO DAILY lisinopril 30 mg PO DAILY methocarbamol 750 mg PO TID PRN metoprolol succinate ER 25 mg PO DAILY ticagrelor (Brilinta) 90 mg PO BID tramadol 50 mg PO QID PRN HPI HPI Comments History of Present Illness Details 43-year-old female presents for a post cardiac cath on 06/17/23/ hospital discharge follow-up. She has a past medical history of HTN. HLD, obesity, current everyday smoker, and chronic pain. She came to [facility] and was found to have NSTEMI and transfered her to [facility]. She reports overall doing well but today having a headache. Denies chest pain and her breathing was a little short when coming in today. Blood pressure was found to be low at 90/50. During cath Lesion in Mid CX wsa stented and a mechanical thrombectomy was performed. She, unfortunately continues to smoke but has cut back to about 7 cigarettes a day. She repors not taking atorvastatin as she started that a few days before her NSTEMI and she had muscle aches. She also reports not being on ASA 81mg but taking all other medications.Right radial site is healing well. Bruising healing from hosptial stay. Per hospital discharge she is starting outpatient cardiac rehab at [facility] on 07/15/34 at 1030am. 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 [facility] Medical History Herniated lumbar intervertebral disc Hypertension Social History Alcohol intake: current service: No Review of Systems Const Denies chills, Denies fatigue, Denies fever(s), Denies frequent falls, Reports headache(s), Denies weakness, Denies weight gain and Denies weight loss ENT Denies dizziness and Reports headache(s) Card Denies chest pain, Denies chest pain with activity, Denies syncope, Denies rapid heart rate, Denies pedal edema, Denies irregular heart rhythm, Denies leg edema, Denies lightheadedness, Denies palpitations, Denies dyspnea, Denies dyspnea on exertion, Denies orthopnea and Denies other (LOC) Resp Denies cough, Denies dyspnea and Denies dyspnea on exertion GI Denies hematochezia and Denies change in bowel habits Musc Denies abnormal gait, Denies arthralgias, Denies muscle weakness, Denies numbness, Denies radiating pain into limb and Denies tingling Neuro Denies abnormal gait, Denies dizziness, Denies syncope, Denies frequent falls, Reports headache(s), Denies numbness, Denies tingling and Denies weakness Endo Denies fatigue and Denies palpitations Physical Exam Vital Signs: Last Vital Signs Pulse 94 06/23/23 14:47 BP 90/50 L 06/23/23 14:47 Pulse Ox 96 06/23/23 14:47 Const General: healthy appearing and no acute distress Orientation/consciousness: patient oriented x3 HEENT Head: Yes normal to inspection Eyes General: appearance normal, both eyes and all related structures Neck Neck: Yes normal visual inspection Chest Chest palpation & inspection: normal inspection of the chest Resp Effort & Inspection: normal respiratory effort Auscultation: clear to auscultation bilaterally Cardio Jugular venous distension: no JVD Palpation: normal PMI Rate: regular rate Rhythm: regular rhythm Heart sounds: S1 normal heart sound present, S2 normal heart sound present, no click, no gallops, no murmurs and no rubs GI Inspection: Yes normal to inspection Palpation (GI): Soft to palpation Skin Other: Right radial site: healing well. No redness, tenderness, or swelling. bruising healing appropriately. Neuro General: patient oriented x3 Extrem General: Yes normal to inspection Psych Appearance: grossly normal Assessment & Plan Assessment & Plan (1) NSTEMI (non-ST elevated myocardial infarction): Code(s): I21.4 - Non-ST elevation (NSTEMI) myocardial infarction (2) S/P cardiac cath: Comment: 06/17/[address] Wagner Cardiac Arteries and Lesion Findings LMCA: Normal. LAD: Minimal luminal irregularities. LCx: Lesion in Mid CX: Mid subsection.80% stenosis .Culprit lesion. RCA: Minimal luminal irregularities. LCx: Lesion in Mid CX: Mid subsection.80% stenosis .Culprit lesion. Devices used - [id number] CAT RX KIT INDIGO ASPIRATION SYSTEM. Number of passes: 1. - 3.0 x 30mm SIMONA FRONTIER RX CORONARY STENT SYSTEM. 1 inflation(s) to a max pressure of: 14 priyank. - [id number] RX NC EUPHORA BALLOON. Diameter: 3.5 mm. Length: 20 mm. 3 inflation(s) to a max pressure of: 18 priyank. Code(s): Z98.890 - Other specified postprocedural states (3) Morbid obesity with BMI of 50.0-59.9, adult: Code(s): E66.01 - Morbid (severe) obesity due to excess calories; Z68.43 - Body mass index [BMI] 50.0-59.9, adult (4) Current smoker: Code(s): F17.200 - Nicotine dependence, unspecified, uncomplicated Plan Advised complete smoking cessation. Weight loss strongly advised - pt would like to see Weight Management - referral made. Fasting labs to be obtained as soon as possible. Continue all medications as prescirbed - blood thinners uninterrupted. Stressed the importance of the medications. Advivsed blood pressure montiroing at home. She had a low blood pressure today and will discontinue HCTZ. Start crestor 5mg every other day and work self up to every day. If fasting lipid panel LDL is above 70 - will add Zetia 10mg QD. Will have her follow-up with Dr Wagner in 3 months or sooner if needed. May return to work come Wednesday as she'll be over one week post cath. Orders: Orders Basic Metabolic Panel 06/23/23 E66.01 - Morbid (severe) obesity due to excess calories, I21.4 - Non-ST elevation (NSTEMI) myocardial infarction, Z68.43 - Body mass index [BMI] 50.0-59.9, adult, Z98.890 - Other specified postprocedural states Lipid Panel 06/23/23 E66.01 - Morbid (severe) obesity due to excess calories, I21.4 - Non-ST elevation (NSTEMI) myocardial infarction, Z68.43 - Body mass index [BMI] 50.0-59.9, adult, Z98.890 - Other specified postprocedural states Referrals Medical Weight Management Referral E66.01 - Morbid (severe) obesity due to excess calories, Z68.43 - Body mass index [BMI] 50.0-59.9, adult Medications: New rosuvastatin 5 mg PO DAILY 30 days 30 tabs 3RF blood pressure test kit-large As directed 1 ea 0RF hypertension Changed From aspirin 81 mg PO DAILY 0 tabs 0RF To aspirin 81 mg PO DAILY 90 days 90 tabs 1RF Coding Level of Care Code Est Pt Level 4 (38184) Diagnoses NSTEMI (non-ST elevated myocardial infarction) I21.4 S/P cardiac cath Z98.890 Morbid obesity with BMI of 50.0-59.9, adult E66.01; Z68.43 Current smoker F17.200
[2023-06-23 14:47] VITALS: BP 90/50; PULSE 94; O2SAT 96
== END 2023-06-23 15:22 | disposition home or self-care (01) ==
PROVIDERS: PCP Nurse Practitioner; Visit Provider Nurse Practitioner
DX: I21.4 Non-ST elevation (NSTEMI) myocardial infarction (principal); Z98.890 Other specified postprocedural states; E66.01 Morbid (severe) obesity due to excess calories; Z68.43 Body mass index [BMI] 50.0-59.9, adult; F17.200 Nicotine dependence, unspecified, uncomplicated
CPT/HCPCS: 99214

== ENCOUNTER → 2023-06-23 14:13 | Outpatient (BNVA) | payer MEDICAID, SELFPAY | PROVIDERS: Visit Provider Nurse Practitioner | DX: I21.4 Non-ST elevation (NSTEMI) myocardial infarction (principal); E66.01 Morbid (severe) obesity due to excess calories; F17.200 Nicotine dependence, unspecified, uncomplicated; Z68.43 Body mass index [BMI] 50.0-59.9, adult | CPT/HCPCS: 99212 ==

== ENCOUNTER 2023-09-08 20:59 | Emergency (ER) | payer MEDICAID, SELFPAY ==
[2023-09-08 21:07] VITALS: BP 115/91; BP 141/89; PULSE 93; PULSE 97; RESP 18; TEMP 36.6; O2SAT 98; BMI 50.2
--- NOTE | 2023-09-08 22:53 | ED.CHESTPAIN ---
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 to arrival feels like pressure off and on radiation of the pain under increased emotional stress feels chronically short of breath and chronic knee pain Related Data Home Medications Medication Instructions Recorded Confirmed tramadol 50 mg tablet 50 mg PO QID PRN pain 06/17/23 06/23/23 Previous Rx's Medication Instructions Recorded methocarbamol 750 mg tablet 750 mg PO TID PRN muscle spasm #20 06/05/23 tabs blood pressure test kit-large #1 ea 06/23/23 aspirin 81 mg tablet,delayed 81 mg PO DAILY 90 days #90 tabs 07/16/23 release lisinopril 30 mg tablet 30 mg PO DAILY #90 tabs 07/16/23 metoprolol succinate 25 mg 25 mg PO DAILY #90 tabs 07/16/23 tablet,extended release 24 hr rosuvastatin 5 mg tablet 5 mg PO DAILY 30 days #90 tabs 07/16/23 ticagrelor 90 mg tablet (Brilinta) 90 mg PO BID #90 tabs 07/16/23 tramadol 50 mg tablet 50 mg PO Q6H PRN pain #20 tabs 09/09/23 Allergies Allergy/AdvReac Type Severity Reaction Status Date / Time atorvastatin AdvReac Intermediate myalgia Verified 09/08/23 21:23 Review of Systems Review of Systems: Yes all other systems are reviewed and are negative PMFSH Past Medical History Onset Date is defined in the Problem List Problems that require an onset date and time if occurred within 24 hrs of arrival to the ED Aortic Dissection and Rupture; Neurologic impairment; Cardiopulmonary Arrest; Endotracheal Intubation; Insertion or Replacement of Mechanical Circulatory Assist Device Medical History (Updated 09/09/23 @ 00:46 by Ryland Hoskins MD) NSTEMI (non-ST elevated myocardial infarction) Herniated lumbar intervertebral disc Hypertension Surgical History (Updated 09/08/23 @ 23:10 by Ryland Hoskins MD) S/P cardiac cath Social History Social History Alcohol intake: current Advance Directives: No Advance Directives Information Provided: Yes service: No Physical Exam Vital Signs: Vital Signs: Last Vital Signs Temp 98.6 F 09/08/23 22:55 Pulse 95 09/08/23 22:55 Resp 20 09/08/23 22:55 BP 125/93 H 09/08/23 22:55 Pulse Ox 95 09/08/23 22:55 O2 Del Method Room Air 09/08/23 22:55 BMI result Body Mass Index 50.2 Appearance: Alert. Oriented X3. No acute distress. Obese Eyes: PERRLA, No Nystagmus ENT: Pharynx normal. Oral Mucosa moist Neck: Normal inspection. Neck supple. CVS: Normal heart rate and rhythm. Pulses normal. Respiratory: No respiratory distress. Equal air entry bilateral, no wheezing/rales/rhonchi Abdomen: Soft and nontender. Bowel sounds are present, no mass palpable, no CVA tenderness Skin: Skin warm and dry. Normal skin color. Normal skin turgor. Extremities: No lower extremity edema. No calf tendernesseffusion+ right knee with diffuse tenderness Neuro: Oriented X 3. No motor deficit. No sensory deficit.No cerebellar signs , cranial nerves II-XII intact Medications Administered Discontinued Medications Generic Name Dose Route Start Last Admin Trade Name Kristal PRN Reason Stop Dose Admin Morphine Sulfate 4 mg 09/08/23 23:06 09/09/23 00:06 Morphine Sulfate 4 Mg/Ml Cartridge IVPUSH 09/08/23 23:07 4 mg ONCE ONE Administration Protocol Tramadol HCl 50 mg 09/09/23 00:45 09/09/23 01:00 Tramadol Hcl 50 Mg Tablet PO 09/09/23 00:46 50 mg ONCE ONE Administration Medical Decision Making Medical Decision Making [facility] Narrative: PATIENT WITH ATYPICAL CHEST PAIN 2 SETS OF CARDIAC ENZYMES NEGATIVE NO ACUTE ISCHEMIC CHANGE WITH WHOLE BODY PAIN ADVISED TO FOLLOW-UP WITH PCP/CARDIOLOGY Differential Diagnosis Differential Diagnoses: The differential diagnosis associated with the presentation includes ACS/CHEST WALL PAIN/ANXIETY Lab Data [facility] Lab Attestation statement: I reviewed the patient's lab results. 09/08/23 21:33 09/08/23 21:33 Labs: Lab Results 09/08/23 09/08/23 Range/Units 21:33 23:55 WBC 13.9 H (4.8-10.8) X10*3/uL RBC 4.76 (4.20-5.50) X10*6/uL Hgb 14.5 (12.0-16.0) g/dl Hct 43.3 (37.0-47.0) % MCV 91.0 (80.0-98.0) fL MCH 30.5 (27.0-33.0) pg MCHC 33.5 (31.0-35.0) g/dl RDW 13.1 (11.0-16.0) % Plt Count 300 D (160-400) X10*3/uL MPV 10.0 (9.4-12.3) fL Immature Gran % (Auto) 0.3 (0.0-0.4) % Neut % (Auto) 59.6 (45-73) % Lymph % (Auto) 34.6 (20-40) % Meade % (Auto) 3.5 (2-11) % Eos % (Auto) 1.4 (0-4) % Baso % (Auto) 0.6 (0-2) % Lymph # (Auto) 4.8 (1.2-4.9) X10*3/uL Meade # (Auto) 0.5 (0.1-1.2) X10*3/uL Eos # (Auto) 0.2 (0.0-0.4) X10*3/uL Baso # (Auto) 0.1 (0.0-0.2) X10*3/uL Abs Immat Gran (auto) 0.04 H (0.00-0.03) X10*3/uL Absolute Neuts (auto) 8.3 (2.0-8.3) x10*3/uL Absolute Nucleated RBC 0.000 (0.0-0.012) X10*3/uL Nucleated RBC % (auto) 0.0 (0.0-0.2) /100WBC PT 10.6 L (11.1-13.3) SEC INR 0.9 (0.9-1.1) Sodium 139 (135-145) mmol/L Potassium 4.0 (3.3-5.1) mmol/L Chloride 105 (96-108) mmol/L Carbon Dioxide 24 (22-29) mmol/L Anion Gap 14 (12-20) BUN 22 H (9-16) mg/dL Creatinine 0.90 (0.5-1.4) mg/dL Estim Creat Clear Calc 126.3 Estimated GFR > 60 Random Glucose 185 H (60-115) mg/dL Calcium 9.4 (8.4-10.2) mg/dL Total Bilirubin 0.2 (0.0-1.0) mg/dL AST 22 (5-31) U/L ALT 29 (0-31) U/L Alkaline Phosphatase 112 (39-117) U/L Troponin I High Sens 3.7 D 3.3 (<3.5-17.0) ng/L Total Protein 7.2 (6.5-8.0) g/dL Albumin 3.9 (3.5-5.0) g/dL Influenza Type A (PCR) NEGATIVE (Negative) Influenza Type B (PCR) NEGATIVE (Negative) RSV RNA Qual (PCR) NEGATIVE (Negative) SARS-CoV-2 RNA (RT-PCR) NEGATIVE (Negative) Independent Interpretation I performed an independent interpretation of an: EKG Interpretation: Sinus rhythm with heart rate 83 beats per minute PACs no acute ST-T changes no acute ischemiA Discharge Plan Discharge Clinical Impression: Chest pain Patient Disposition: Home, Self-Care Instructions: Chest Pain (ED), Arthritis (ED) Additional Instructions: Continue your medications and follow with team primary care physician/-PCP Prescriptions: New tramadol 50 mg tablet 50 mg PO Q6H PRN (Reason: pain) Qty: 20 0RF No Action metoprolol succinate 25 mg tablet extended release 24 hr 25 mg PO DAILY Qty: 90 2RF Brilinta 90 mg tablet 90 mg PO BID Qty: 90 2RF lisinopril 30 mg tablet 30 mg PO DAILY Qty: 90 2RF aspirin 81 mg tablet,delayed release (DR/EC) 81 mg PO DAILY 90 Days Qty: 90 2RF rosuvastatin 5 mg tablet 5 mg PO DAILY 30 Days Qty: 90 2RF tramadol 50 mg tablet 50 mg PO QID PRN (Reason: pain) methocarbamol 750 mg tablet 750 mg PO TID PRN (Reason: muscle spasm) Qty: 20 0RF (DME) blood pressure test kit-large Kit See Rx Instructions .Route Qty: 1 0RF Rx Instructions: As directed
[2023-09-08 22:55] VITALS: BP 125/93; PULSE 95; RESP 20; TEMP 37; O2SAT 95
--- NOTE | 2023-09-08 22:55 | MHC.EDTECH ---
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 Patient is waiting to be seen call evans within reach
--- NOTE | 2023-09-08 23:55 | MHC.EDTECH ---
Lab obtained and sent to lab.Patient ambulated with a steady gait to the bathroom.
--- NOTE | 2023-09-09 00:28 | PC.NURSE ---
While RN to bedside medicating the pt per NOV. Pt requesting an antiflammatory medication for her right knee pain that is chronic. The pt states I could do some toradol maybe . RN made MD aware and no new orders obtained at this time.
[2023-09-09 01:23] VITALS: PULSE 95
== END 2023-09-09 00:15 | disposition home or self-care (01) ==
PROVIDERS: Emergency Provider Internal Medicine
DX: R07.9 Chest pain, unspecified (principal); I10 Essential (primary) hypertension; I25.2 Old myocardial infarction; Z79.899 Other long term (current) drug therapy; Z20.822 Contact with and (suspected) exposure to COVID-19; Z20.828 Contact with and (suspected) exposure to other viral communicable diseases
CPT/HCPCS: 0241U; 36415; 80053; 84484; 85025; 85610; 93005; 96374; 99284; 99285; J2270

== ENCOUNTER → 2023-09-08 21:09 | Outpatient (BNV) | payer MEDICAID, SELFPAY | PROVIDERS: Emergency Provider Internal Medicine; Visit Provider Internal Medicine Cardiovascular Disease | DX: I49.3 Ventricular premature depolarization (principal) | CPT/HCPCS: 93010 ==

== ENCOUNTER 2023-12-14 12:38 | Outpatient (AMB) | payer MEDICAID, SELFPAY ==
[2023-12-14 12:58] VITALS: BP 130/80; PULSE 82; BMI 52.7
--- NOTE | 2023-12-14 12:58 | A.OFFVIS_ITS ---
Intake Vital Signs 12/14/23 12:58 12/14/23 13:30 Height 5 ft 9 in Weight 357 lb 2.382 oz BMI 52.7 BP 130/80 120/78 Blood Pressure Location Lt brachial Lt brachial Position Sitting Sitting Pulse 82 Intake Visit Reasons: 3 MONTH FOLLOW UP Intake Note: 3 MONTH FOLLOW UP PT HAS SOB AND IS IN PAIN DUE TO ARTHRITIS Allergies atorvastatin Adverse Reaction (Intermediate, Verified 09/08/23 21:23) myalgia Medication List - Last Reconciled 12/14/23 by Falguni Sexton NP aspirin 81 mg PO DAILY 90 days blood pressure test kit-large As directed citalopram 10 mg PO DAILY lisinopril 20 mg PO DAILY methocarbamol 750 mg PO TID PRN metoprolol succinate ER 25 mg PO DAILY rosuvastatin 5 mg PO DAILY 30 days ticagrelor (Brilinta) 90 mg PO BID tramadol 50 mg PO QID PRN tramadol 50 mg PO Q6H PRN HPI HPI Comments History of Present Illness Details 43-year-old female presents today for a follow-up. She had a NSTEMI and stent placed in the LCx back in Jun 2023. She reports she has been out of work due to shortness of breath and her chronic pain worsening. She reports she has been getting short of breath quickly but denies chest pains or edema. During her last visit she declined cardiac rehab due to transportation concerns. [facility] Medical History NSTEMI (non-ST elevated myocardial infarction) Herniated lumbar intervertebral disc Hypertension Surgical History S/P cardiac cath Social History Alcohol intake: current Alcohol intake frequency: a few times a month service: No Review of Systems Const Denies weakness ENT Denies dizziness Card Denies chest pain, Denies chest pain with activity, Denies syncope, Denies rapid heart rate, Denies pedal edema, Denies edema, Denies leg edema, Denies lightheadedness, Denies palpitations, Denies dyspnea, Reports dyspnea on exertion and Denies orthopnea Resp Denies cough, Denies dyspnea and Reports dyspnea on exertion GI Denies hematochezia and Denies change in stool character Musc Denies abnormal gait, Denies muscle cramps, Denies muscle weakness, Denies numbness, Denies radiating pain into limb and Denies tingling Neuro Denies abnormal gait, Denies dizziness, Denies syncope, Denies numbness, Denies tingling and Denies weakness Endo Denies palpitations Physical Exam Vital Signs: Last Vital Signs Pulse 82 12/14/23 12:58 BP 120/78 12/14/23 13:30 BMI result Body Mass Index 52.7 Const General: healthy appearing and no acute distress Orientation/consciousness: patient oriented x3 HEENT Head: Yes normal to inspection Eyes General: appearance normal, both eyes and all related structures Neck Neck: Yes normal visual inspection Chest Chest palpation & inspection: normal inspection of the chest Resp Effort & Inspection: normal respiratory effort Auscultation: clear to auscultation bilaterally Cardio Jugular venous distension: no JVD Palpation: normal PMI Rate: regular rate Rhythm: regular rhythm Heart sounds: S1 normal heart sound present, S2 normal heart sound present, no click, no gallops, no murmurs and no rubs GI Inspection: Yes normal to inspection Palpation (GI): Soft to palpation Skin General skin exam: no rashes or lesions noted Neuro General: patient oriented x3 Extrem General: Yes normal to inspection Psych Appearance: grossly normal Assessment & Plan Assessment & Plan (1) NSTEMI (non-ST elevated myocardial infarction): Code(s): I21.4 - Non-ST elevation (NSTEMI) myocardial infarction (2) Current smoker: Code(s): F17.200 - Nicotine dependence, unspecified, uncomplicated (3) Morbid obesity with BMI of 50.0-59.9, adult: Code(s): E66.01 - Morbid (severe) obesity due to excess calories; Z68.43 - Body mass index [BMI] 50.0-59.9, adult Plan Advised complete smoking cessation. Weight loss strongly advised Fasting labs to be today since she has not eaten yet. Continue all medications as prescribed - blood thinners uninterrupted. Stressed the importance of the medications and follow-up compliance. Advised blood pressure monitoring at home. She had a low blood pressure during the last visit and HCTZ was discontinued. Will switch brilinta to plavix due to shortness of breath. loading dose of 300mg and the 7 5mg daily. ASA indefinitely. She agreed to try cardiac rehab. Orders: Orders Cardiac Rehab 12/14/23 I21.4 - Non-ST elevation (NSTEMI) myocardial infarction Medications: Refilled aspirin 81 mg PO DAILY 90 days 90 tabs 3RF Discontinued ticagrelor (Brilinta) Discontinued Reason: Doctor's Order 90 mg PO BID 90 tabs 0RF Coding Level of Care Code Est Pt Level 3 (12951) Diagnoses NSTEMI (non-ST elevated myocardial infarction) I21.4 Current smoker F17.200 Morbid obesity with BMI of 50.0-59.9, adult E66.01; Z68.43
[2023-12-14 13:30] VITALS: BP 120/78
== END 2023-12-14 13:41 | disposition home or self-care (01) ==
PROVIDERS: Visit Provider Nurse Practitioner
DX: I21.4 Non-ST elevation (NSTEMI) myocardial infarction (principal); F17.200 Nicotine dependence, unspecified, uncomplicated; E66.01 Morbid (severe) obesity due to excess calories; Z68.43 Body mass index [BMI] 50.0-59.9, adult
CPT/HCPCS: 99213

== ENCOUNTER 2023-12-14 12:38 | Outpatient (REF) | payer MEDICAID, SELFPAY ==
[2023-12-14 14:53] LABS: Anion Gap 14 (12-20); Blood Urea Nitrogen 17 mg/dL (9-16); Calcium 9.6 mg/dL (8.4-10.2); Carbon Dioxide 24 mmol/L (22-29); Chloride 106 mmol/L (96-108); Cholesterol 164 mg/dL (<200); Estimated Glomerular Filt Rate > 60; Glucose Random 108 mg/dL (60-115); HDL Cholesterol 47 mg/dL (>40); LDL Cholesterol Calculated 86 mg/dL (<100); Potassium 4.4 mmol/L (3.3-5.1); Sodium 140 mmol/L (135-145); Triglycerides 158 mg/dL (<150)
== END 2023-12-14 12:39 | disposition home or self-care (01) ==
LOC: HO.LAB 12:38
PROVIDERS: Visit Provider Nurse Practitioner
DX: I21.4 Non-ST elevation (NSTEMI) myocardial infarction (principal); F17.200 Nicotine dependence, unspecified, uncomplicated; E66.01 Morbid (severe) obesity due to excess calories; Z68.43 Body mass index [BMI] 50.0-59.9, adult; Z79.891 Long term (current) use of opiate analgesic; Z79.899 Other long term (current) drug therapy
CPT/HCPCS: 36415; 80048; 80061; 99212

== ENCOUNTER 2024-01-09 15:30 | Emergency (ER) | payer MEDICAID, SELFPAY ==
--- NOTE | ~2024-01-09 | XR_ITS ---
EXAMINATION: XR LUMBAR SPINE, 3 VIEWS XR SACRUM AND COCCYX, 3 VIEWS CLINICAL INFORMATION: Pain COMPARISON: None available. TECHNIQUE: 3 views of the lumbosacral spine 3 views of the sacrum and coccyx FINDINGS: 5 nonrib-bearing lumbar-type vertebral bodies. Questionable cortical defect along the anterior inferior midportion of the coccyx versus anatomic variant. Correlation with point tenderness. Slight levocurvature of the thoracolumbar spine. Suggestion of bilateral L5 pars defects. Bilateral sacroiliac joints are patent. Lower lumbar spine facet arthropathy. Vertebral body heights and spaces are otherwise maintained. Posterior elements are intact. Paraspinal soft tissues are unremarkable. T-shaped IUD in pelvis. Bowel gas is unremarkable. XR/XR lumbar spine 2-3V IMPRESSION: 1. Questionable cortical defect along the anterior inferior midportion of the coccyx versus anatomic variant. Correlation with point tenderness. 2. Slight levocurvature of the thoracolumbar spine. 3. Suggestion of bilateral L5 pars defects. 4. Lower lumbar spine facet arthropathy. 5. Bilateral sacroiliac joints are patent.
--- NOTE | ~2024-01-09 | XR_ITS ---
EXAMINATION: XR LUMBAR SPINE, 3 VIEWS XR SACRUM AND COCCYX, 3 VIEWS CLINICAL INFORMATION: Pain COMPARISON: None available. TECHNIQUE: 3 views of the lumbosacral spine 3 views of the sacrum and coccyx FINDINGS: 5 nonrib-bearing lumbar-type vertebral bodies. Questionable cortical defect along the anterior inferior midportion of the coccyx versus anatomic variant. Correlation with point tenderness. Slight levocurvature of the thoracolumbar spine. Suggestion of bilateral L5 pars defects. Bilateral sacroiliac joints are patent. Lower lumbar spine facet arthropathy. Vertebral body heights and spaces are otherwise maintained. Posterior elements are intact. Paraspinal soft tissues are unremarkable. T-shaped IUD in pelvis. Bowel gas is unremarkable. XR/XR sacrum coccyx min 2V IMPRESSION: 1. Questionable cortical defect along the anterior inferior midportion of the coccyx versus anatomic variant. Correlation with point tenderness. 2. Slight levocurvature of the thoracolumbar spine. 3. Suggestion of bilateral L5 pars defects. 4. Lower lumbar spine facet arthropathy. 5. Bilateral sacroiliac joints are patent.
--- NOTE | ~2024-01-09 | XR_ITS ---
EXAMINATION: XR ANKLE, LEFT CLINICAL INFORMATION: Fall pain COMPARISON: None available. TECHNIQUE: AP, lateral, and mortise views of the left ankle. FINDINGS: Well-corticated ossific focus inferior to the medial malleolus potentially representing sequela of remote trauma, correlation with point tenderness. Ankle mortise is symmetric. Joint space alignment otherwise maintained. Soft tissues edema greatest along the lateral malleolus. XR/XR ankle LT min 3V IMPRESSION: 1. Well-corticated ossific focus inferior to the medial malleolus potentially representing sequela of remote trauma, correlation with point tenderness. 2. Soft tissues edema greatest along the lateral malleolus.
[2024-01-09 15:40] VITALS: BP 170/110; PULSE 90; O2SAT 97
[2024-01-09 15:52] VITALS: BP 184/97; PULSE 86; RESP 20; TEMP 36.6; O2SAT 97; BMI 50.2
--- NOTE | 2024-01-09 15:56 | ED_ITS ---
HPI - Back Pain/Injury General Chief Complaint: Fall Stated Complaint: lower back pain from fall, + thinners, uses walker Time Seen by Provider: 01/09/24 18:42 Source: patient Mode of arrival: ambulatory Limitations: no limitations History of Present Illness HPI Narrative: 43-year-old female history of NSTEMI, lumbosacral spondylosis and lumbar degenerative disc disease presents to the ED for low back pain and left ankle pain since yesterday. Patient states yesterday she slipped out of her walker and fell onto her back and felt pain immediately. Patient denies hitting head or loss of consciousness. Patient felt directly onto her butt. Patient also states left ankle pain. Patient denies any trouble with gait or walking since fall. Patient denies any headache, dizziness, nausea, vomiting, rectal bleeding, bloody urine, bloody stool, or abdominal pain. Denies any headache, chest pain, shortness of breath, abdominal pain, or dizziness before falling. Related Data Home Medications ?Medication ?Instructions ?Recorded ?Confirmed tramadol 50 mg tablet 50 mg PO QID PRN pain 06/17/23 12/14/23 citalopram 10 mg tablet 10 mg PO DAILY 12/14/23 12/14/23 lisinopril 20 mg tablet 20 mg PO DAILY 12/14/23 12/14/23 Previous Rx's ?Medication ?Instructions ?Recorded methocarbamol 750 mg tablet 750 mg PO TID PRN muscle spasm #20 06/05/23 tabs blood pressure test kit-large #1 ea 06/23/23 rosuvastatin 5 mg tablet 5 mg PO DAILY 30 days #90 tabs 07/16/23 tramadol 50 mg tablet 50 mg PO Q6H PRN pain #20 tabs 09/09/23 metoprolol succinate 25 mg 25 mg PO DAILY #90 tabs 11/29/23 tablet,extended release 24 hr aspirin 81 mg tablet,delayed 81 mg PO DAILY 90 days #90 tabs 12/14/23 release clopidogrel 75 mg tablet 75 mg PO DAILY #90 tabs 12/15/23 oxycodone 5 mg tablet 5 mg PO Q8H PRN pain 3 days #9 tabs 01/09/24 Allergies Allergy/AdvReac Type Severity Reaction Status Date / Time atorvastatin AdvReac Intermediate myalgia Verified 01/09/24 15:56 Review of Systems 2 Review of Systems: Low back pain left ankle pain Yes all other systems are reviewed and are negative [facility] Past Medical History Medical History NSTEMI (non-ST elevated myocardial infarction) Herniated lumbar intervertebral disc Hypertension Surgical History S/P cardiac cath Social History Social History Alcohol intake: current Alcohol intake frequency: holidays/special occasions only Smoked in Last 30 Days: Yes Use of substances other than those prescribed or required for medical reasons: No Advance Directives: No Advance Directives Information Provided: No Do you have a plan to hurt others: No Plan service: No Physical Exam 2 Vital Signs: Vital Signs: Last Vital Signs Temp 98.3 F 01/09/24 20:45 Pulse 87 01/09/24 20:45 Resp 17 01/09/24 20:45 BP 199/100 H 01/09/24 20:45 Pulse Ox 100 01/09/24 20:45 O2 Del Method Room Air 01/09/24 20:45 BMI result Body Mass Index 50.2 Const: General: cooperative, healthy appearing, comfortable, no acute distress, well developed, alert, awake and Physically active O rientation/consciousness: oriented to person, oriented to place, oriented to time and patient oriented x3 HEENT: Head: Yes normal to inspection, Yes No palpable skull fracture present, Yes normocephalic, Yes atraumatic and No abrasion Ears: hearing grossly normal bilaterally, external ears normal, TM's normal bilaterally, TM normal on the right, TM normal on the left, EAC's normal, mastoids normal and no periauricular adenopathy Eyes: General: appearance normal, both eyes and all related structures Neck: Neck: Yes normal visual inspection, Yes full ROM, Yes no lymphadenopathy and Yes no meningeal signs Chest: Chest palpation & inspection: normal inspection of the chest and normal palpation of entire chest wall Resp: Effort & Inspection: normal respiratory effort and able to speak in complete sentences Auscultation: clear to auscultation bilaterally Cardio: Jugular venous distension: no JVD Heart sounds: S1 normal heart sound present and S2 normal heart sound present GI: Inspection: Yes normal to inspection Palpation (GI): Soft to palpation, not firm, nontender, no guarding and not rigid Back/Spine/Pelvis: Back: back tenderness (Sacral coccyx tenderness. Negative for ecchymosis, crepitus, or hematoma) Skin: General skin exam: no rashes or lesions noted, elasticity normal and turgor normal Neuro: General: oriented to person, oriented to place, oriented to time, patient oriented x3, gait normal, tone normal, moves all extremities, Normal light touch and pain sensation, no meningeal signs, no focal motor deficits, CN's II-XI intact bilaterally and normal sensation to monofilament Extrem: General: Yes normal to inspection, Yes full ROM and Yes capillary refill normal Ankle/foot/toe images: 1. Blunt tenderness on palpation. Negative for crepitus, ecchymosis, deformity, or erythema. Rest of extremities normal. Motor/neuro/vascular exam intact Psych: Appearance: grossly normal, well kempt and not disheveled Course Course Course Narrative: This is an RME performed by Olga Andrea CNP: Additional HPI, ROS, PE not included below will be deferred to primary provider. Patient is a 43 year old female who presents emergency department via EMS for evaluation after a mechanical fall. She attempted to sit on her walker, she forgot to lock it, when it moved from behind her and she fell backwards landing onto her backside. She denies head strike or loss of consciousness. She landed on her buttock and is reporting pain to her lower back/coccyx and her right ankle. Plan: XR Medications Administered Discontinued Medications Generic Name Dose Route Start Last Admin Trade Name Duarteq PRN Reason Stop Dose Admin Morphine Sulfate 2 mg 01/09/24 19:27 01/09/24 19:43 Morphine Sulfate 2 Mg/Ml Cartridge IM 01/09/24 19:28 2 mg ONCE ONE Administration Protocol Medical Decision Making Medical Decision Making MDM Narrative: . 43-year-old female presents to ED for mechanical fall. Patient fell unto his back/buttock. X-ray of sacral coccyx shows possible coccyx fracture. Left ankle x-ray shows old remote fracture no new fractures. Patient has complete range of motion of left lower extremity without any pain. Patient will be discharged with narcotics due to being on Plavix. Whole-body evaluated and negative for signs of life-threatening trauma. Patient is educated on management of coccyx fracture which is conservative including heat ice pack, pain medication, and sitting forward and may use pillow under seat. Patient informed to follow up with Orthopedic surgeon. Blood pressure elevated due to pain. Negative for any neuro deficits. Not suspecting stroke. Patient explained worrisome signs and informed to return to ED for she has them. Patient has history of hypertension and is compliant with her meds. Differential Diagnosis Differential Diagnoses: The differential diagnosis associated with the presentation includes (Lumbar spine fracture, coccyx Fracture, ankle fracture, ) Admission/Observation Consideration of admission/observation: Escalation of care including admission/observation considered Independent Interpretation I performed an independent interpretation of an: Plain X-Ray Radiology Impression Discussion of test interpretation with radiology: I have reviewed the radiologist's reading. Independent Historian Clinical information obtained from an independent historian. History obtained from or confirmed by: Other (Patient) External Record Review External record reviewed: Other (Prior visits) Prescription Management I considered prescription management with: Pain Medication Discharge Plan Discharge Clinical Impression: Fracture of coccyx, Ankle sprain Patient Disposition: Home, Self-Care Instructions: Ankle Sprain (ED), Coccyx Injury (ED) Additional Instructions: Xray show possible coccyx fracture. Recommend follow-up with primary care provider and orthopedic surgeon. Recommend heat and ice pack on coccyx area. Recommend sitting leaning forward and if sitting flat on buttock sit on pillow. Return to the ED for severe pain, bluish black discoloration, rectal bleeding, numbness/tingling of lower extremity, paralysis of lower extremities, abdominal pain, headache, dizziness, chest pain, shortness of breath, or any other concerning symptoms Prescriptions: New oxycodone 5 mg tablet 5 mg PO Q8H PRN (Reason: pain) 3 Days Qty: 9 0RF Rx Instructions: Partial Fill upon patient request. No Action rosuvastatin 5 mg tablet 5 mg PO DAILY 30 Days Qty: 90 2RF metoprolol succinate 25 mg tablet extended release 24 hr 25 mg PO DAILY Qty: 90 0RF clopidogrel 75 mg tablet 75 mg PO DAILY Qty: 90 2RF Rx Instructions: ON FIRST DAY; TAKE 4 TABLETS (300mg) AND THEN TAKE ONE TABLET DAILY (75MG) indefinitely. STOP TICAGRELOR tramadol 50 mg tablet 50 mg PO QID PRN (Reason: pain) methocarbamol 750 mg tablet 750 mg PO TID PRN (Reason: muscle spasm) Qty: 20 0RF tramadol 50 mg tablet 50 mg PO Q6H PRN (Reason: pain) Qty: 20 0RF aspirin 81 mg tablet,delayed release (DR/EC) 81 mg PO DAILY 90 Days Qty: 90 3RF lisinopril 20 mg tablet 20 mg PO DAILY citalopram 10 mg tablet 10 mg PO DAILY (DME) blood pressure test kit-large Kit See Rx Instructions .Route Qty: 1 0RF Rx Instructions: As directed Referrals: [facility] – [place] Orthopedic Surgeons [Provider Group] (Possible coccyx fracture) Stand Alone Forms: Work/School Release Interventions: ED Discharge Assessment Last Done: 01/09/24 20:45 Discharge Date/Time: 01/09/24 20:47 Print Language: Mohawk
[2024-01-09 18:13] VITALS: RESP 18; TEMP 36.6
[2024-01-09 18:16] VITALS: BP 157/94
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
--- NOTE | 2024-01-09 19:29 | PC.NURSE ---
this rn assumed care of pt, pt resting in stretcher, no acute distress noted, pt reporting 10/10 lower back pain. Choco IBARRA at bedside preforming lower back exam.
[2024-01-09 19:43] VITALS: RESP 17
[2024-01-09] MEDS: Morphine Sulfate 2 MG/ML CARTRIDGE IM (19:43)
--- NOTE | 2024-01-09 19:47 | PC.NURSE ---
pt medicated per nov for 10/10 lower back pain. pt tolerated well.
[2024-01-09 20:45] VITALS: BP 199/100; PULSE 87; RESP 17; TEMP 36.8; O2SAT 100
== END 2024-01-09 20:47 | disposition home or self-care (01) ==
PROVIDERS: Emergency Provider Emergency Medicine Emergency Medical Services
DX: S32.2XXA Fracture of coccyx, initial encounter for closed fracture (principal); S93.402A Sprain of unspecified ligament of left ankle, initial encounter; M51.36 Other intervertebral disc degeneration, lumbar region; M47.817 Spondylosis without myelopathy or radiculopathy, lumbosacral region; I10 Essential (primary) hypertension; I25.2 Old myocardial infarction; W01.0XXA Fall on same level from slipping, tripping and stumbling without subsequent striking against object, initial encounter; Y93.9 Activity, unspecified; Y92.9 Unspecified place or not applicable; Y99.9 Unspecified external cause status
CPT/HCPCS: 72100; 72220; 73610; 96372; 99284; J2270

== ENCOUNTER 2024-01-30 14:01 | Emergency (ER) | payer OTHER, MEDICAID, SELFPAY ==
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
[2024-01-30 14:14] VITALS: BP 145/92; BP 158/98; PULSE 100; PULSE 106; RESP 19; O2SAT 95; O2SAT 96
[2024-01-30 14:19] VITALS: TEMP 37.1
[2024-01-30 14:24] VITALS: BP 145/92; PULSE 100; RESP 19; TEMP 37.1; O2SAT 95; BMI 50.2
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
[2024-01-30] MEDS: oxyCODONE HCl Immed Release 5 MG TABLET 10 MG PO (16:04)
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
[2024-01-30] MEDS: Acetaminophen 325 MG TABLET 975 MG PO (17:23)
[2024-01-30] MEDS: Lidocaine 4 % Patch ADH..PATCH 2 PATCH TRANSDERMA (17:43)
[2024-01-30] MEDS: Lidocaine 4 % Patch ADH..PATCH 1 PATCH TRANSDERMA (17:44)
[2024-01-30 18:42] VITALS: BP 132/79; PULSE 92; RESP 18; TEMP 36.9; O2SAT 92
[2024-01-30] MEDS: Morphine Sulfate 4 MG/ML CARTRIDGE IM (19:47)
[2024-01-30] MEDS: oxyCODONE HCl Immed Release 5 MG TABLET PO (22:30)
[2024-01-30 22:33] VITALS: BP 132/79; PULSE 92; RESP 17; TEMP 36.9; O2SAT 95
== END 2024-01-30 22:34 | disposition home or self-care (01) ==
PROVIDERS: Emergency Provider Internal Medicine
DX: Z04.1 Encounter for examination and observation following transport accident (principal); M54.50 Low back pain, unspecified; M25.511 Pain in right shoulder; M25.552 Pain in left hip; R51.9 Headache, unspecified
CPT/HCPCS: 70450; 71250; 72125; 73030; 73502; 74176; 96372; 99284; J2270

== ENCOUNTER 2024-04-12 13:17 | Outpatient (AMB) | payer MEDICAID, SELFPAY ==
[2024-04-12 13:21] VITALS: BP 124/80; PULSE 86; BMI 52.4
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
== END 2024-04-12 13:52 | disposition home or self-care (01) ==
PROVIDERS: Visit Provider Nurse Practitioner
DX: I21.4 Non-ST elevation (NSTEMI) myocardial infarction (principal); F17.200 Nicotine dependence, unspecified, uncomplicated; I10 Essential (primary) hypertension; E66.01 Morbid (severe) obesity due to excess calories; Z68.43 Body mass index [BMI] 50.0-59.9, adult
CPT/HCPCS: 99214

== ENCOUNTER → 2024-04-12 13:17 | Outpatient (BNVA) | payer OTHER, MEDICAID, SELFPAY | PROVIDERS: Visit Provider Nurse Practitioner | DX: I10 Essential (primary) hypertension (principal); I25.2 Old myocardial infarction; E66.01 Morbid (severe) obesity due to excess calories; Z68.43 Body mass index [BMI] 50.0-59.9, adult; F17.210 Nicotine dependence, cigarettes, uncomplicated | CPT/HCPCS: 99212 ==

== ENCOUNTER 2024-08-02 13:33 | Outpatient (AMB) | payer MEDICAID, SELFPAY ==
--- NOTE | 2024-08-02 13:34 | MHC.OFFVIS ---
Vital Signs 08/02/24 13:35 Height 5 ft 9 in Weight 352 lb 4.779 oz BMI 52.0 BP 150/76 H Blood Pressure Location Lt radial Position Sitting Pulse 95 Pulse Source Pulse Oximeter Intake Visit Reasons: 3 mth f/up Intake Note: 3 mth f/up Hazardous Waste Management Specialist Required: No Accompanied by: Self / Same As Patient Allergies atorvastatin Adverse Reaction (Intermediate, Verified 01/09/24 15:56) myalgia ticagrelor [From Brilinta] Adverse Reaction (Verified 01/30/24 14:27) Difficulty Breathing Medication List - Last Reconciled 08/02/24 by Ishan Wagner MD aspirin 81 mg PO DAILY 90 days blood pressure test kit-large As directed clopidogrel 75 mg PO DAILY lisinopril 40 mg PO DAILY metoprolol succinate ER 25 mg PO DAILY oxycodone 5 mg PO Q8H PRN 3 days rosuvastatin 5 mg PO DAILY 90 days semaglutide (weight loss) (Wegovy) 0.25 mg (0.5 mL) subcut QWEEK sertraline 50 mg PO ONCE HPI Comments Details: [age] year female with morbid obesity, tobacco abuse, hypertension and known coronary disease with previous NSTEMI in 06/25/2023 when she had a drug-eluting stent placed to the circumflex artery. She has been doing well and has no symptoms currently. She continues to smoke up to a pack per day. She is on Wegovy and is trying to lose weight. Blood pressure is elevated but she has not been taking lisinopril regularly. She is saying we felt were pressure is normal she does not take the pill. He was previously on hydrochlorothiazide which apparently was stopped in the past. She is currently taking lisinopril 40 mg daily. [facility] Medical History (Updated 08/02/24 @ 13:54 by Ishan Wagner MD) NSTEMI (non-ST elevated myocardial infarction) Herniated lumbar intervertebral disc Hypertension Surgical History S/P cardiac cath Social History Alcohol intake: current Alcohol intake frequency: holidays/special occasions only Patient Tobacco Use Status: Current everyday Tobacco user Tobacco use type: Cigarette Cigarette Packs Per Day: 0.5 service: No Review of Systems Const Denies chills, Denies fatigue, Denies fever(s), Denies frequent falls, Denies weakness, Denies weight gain and Denies weight loss ENT Denies dizziness Card Denies chest pain, Denies leg edema, Denies lightheadedness, Denies palpitations, Denies dyspnea and Denies dyspnea on exertion Resp Denies cough, Denies dyspnea and Denies dyspnea on exertion GI Denies hematochezia Musc Denies abnormal gait, Denies muscle weakness, Denies numbness, Denies radiating pain into limb and Denies tingling Neuro Denies abnormal gait, Denies dizziness, Denies frequent falls, Denies numbness, Denies tingling and Denies weakness Endo Denies fatigue and Denies palpitations Physical Exam Vital Signs: Last Vital Signs Pulse 95 08/02/24 13:35 BP 150/76 H 08/02/24 13:35 BMI result Body Mass Index 52.0 GENERAL APPEARANCE: in no acute distress, obese. NECK: no carotid bruit, no jugular venous distention. SKIN: no suspicious lesions, warm and dry. HEART: no murmurs, regular rate and rhythm. LUNGS: clear to auscultation bilaterally. ABDOMEN: soft, nontender. EXTREMITIES: no edema. PERIPHERAL PULSES: equal. NEUROLOGIC: No gross deficits, AAO X 3 Assessment & Plan Assessment & Plan (1) Hypertension: Code(s): I10 - Essential (primary) hypertension Category: Medical (2) Current smoker: Code(s): F17.200 - Nicotine dependence, unspecified, uncomplicated Category: Social Hx (3) Stable angina: Code(s): I20.89 - Other forms of angina pectoris Category: Medical Plan [age] year female with tobacco abuse and previous history of coronary disease and NSTEMI when she had a drug-eluting stent placed to the left circumflex artery. Blood pressure is elevated. She has not been taking lisinopril regularly and apparently does not take medicine with the blood pressure is normal. I have advised her that she should not miss medicines because she need to take them regularly to have a steady state. She will take lisinopril 40 mg daily and come back in 10 days for blood pressure check. If blood pressure is elevated then would consider adding thiazide diuretic. Continue aspirin and Plavix at this stage. She is still smoking close to a pack per day. I had a detailed discussion with her about smoking cessation. She feels that smoking is the only thing which helps her with stress in her life and I have advised her that she needs to think of some safer alternative as this is the likely cause she had plaque erosion in circumflex leading to ND. Thank you for allowing me to participate in the care of your patient. Please feel free to contact me if you have any questions. Medications: New semaglutide (weight loss) (Marty) administer weeks 1 through 4 of therapy 0.25 mg (0.5 mL) subcut QWEEK 5 mL 0RF Changed From lisinopril 20 mg PO DAILY To lisinopril 40 mg PO DAILY Coding Level of Care Code Est Pt Level 4 (78849) Diagnoses Hypertension I10 Current smoker F17.200 Stable angina I20.89
[2024-08-02 13:35] VITALS: BP 150/76; PULSE 95; BMI 52.0
== END 2024-08-02 13:57 | disposition home or self-care (01) ==
PROVIDERS: PCP Nurse Practitioner; Visit Provider Internal Medicine Cardiovascular Disease
DX: I10 Essential (primary) hypertension (principal); F17.200 Nicotine dependence, unspecified, uncomplicated; I20.89 Other forms of angina pectoris
CPT/HCPCS: 99214

== ENCOUNTER → 2024-08-02 13:33 | Outpatient (BNVA) | payer OTHER, MEDICAID, SELFPAY | PROVIDERS: Visit Provider Internal Medicine Cardiovascular Disease | DX: I10 Essential (primary) hypertension (principal); I20.89 Other forms of angina pectoris; F17.210 Nicotine dependence, cigarettes, uncomplicated; I25.2 Old myocardial infarction; Z79.02 Long term (current) use of antithrombotics/antiplatelets; Z79.82 Long term (current) use of aspirin; Z79.899 Other long term (current) drug therapy | CPT/HCPCS: 99212 ==

== ENCOUNTER 2024-12-06 12:57 | Outpatient (AMB) | payer MEDICAID, SELFPAY ==
--- NOTE | 2024-12-06 13:29 | MHC.OFFVIS ---
Vital Signs 12/06/24 13:31 Height 5 ft 9 in Weight 354 lb 15.108 oz BMI 52.4 BP 130/72 Blood Pressure Location Lt brachial Position Sitting Pulse 82 Pulse Source Monitor Intake Visit Reasons: 4m follow up Intake Note: 4 mth f/up Flipping Machine Operator Required: No Accompanied by: Self / Same As Patient Allergies atorvastatin Adverse Reaction (Intermediate, Verified 01/09/24 15:56) myalgia ticagrelor [From Brilinta] Adverse Reaction (Verified 01/30/24 14:27) Difficulty Breathing Medication List - Last Reconciled 12/06/24 by Ishan Wagner MD aspirin 81 mg PO DAILY 90 days blood pressure test kit-large As directed clopidogrel 75 mg PO DAILY lisinopril 40 mg PO DAILY metoprolol succinate ER 25 mg PO DAILY oxycodone 5 mg PO Q8H PRN 3 days rosuvastatin 5 mg PO DAILY 90 days semaglutide (weight loss) (Wegovy) 0.25 mg (0.5 mL) subcut QWEEK sertraline 50 mg PO ONCE HPI Comments Details: [age] year female with morbid obesity, tobacco abuse, hypertension and known coronary disease with previous NSTEMI in 06/25/2023 when she had a drug-eluting stent placed to the circumflex artery. She has been doing well and has no symptoms currently. She continues to smoke up to a pack per day. She is on Wegovy and is trying to lose weight. Blood pressure is elevated but she has not been taking lisinopril regularly. She is saying we felt were pressure is normal she does not take the pill. He was previously on hydrochlorothiazide which apparently was stopped in the past. She is currently taking lisinopril 40 mg daily. 12/06/2024: She is here for follow-up. Denying any chest discomfort. Continues to smoke. Morbidly obese and is currently taking Wegovy. She has been experiencing back pain and had procedure done by pain management recently. [facility] Medical History (Updated 08/02/24 @ 13:54 by Ishan Wagner MD) NSTEMI (non-ST elevated myocardial infarction) Herniated lumbar intervertebral disc Hypertension Surgical History S/P cardiac cath Social History Alcohol intake: current Alcohol intake frequency: holidays/special occasions only Patient Tobacco Use Status: Current everyday Tobacco user Tobacco use type: Cigarette Cigarette Packs Per Day: 0.5 service: No Review of Systems Const Denies chills, Denies fatigue, Denies fever(s), Denies frequent falls, Denies weakness, Denies weight gain and Denies weight loss ENT Denies dizziness Card Denies chest pain, Denies leg edema, Denies lightheadedness, Denies palpitations, Denies dyspnea and Denies dyspnea on exertion Resp Denies cough, Denies dyspnea and Denies dyspnea on exertion GI Denies hematochezia Musc Denies abnormal gait, Denies muscle weakness, Denies numbness, Denies radiating pain into limb and Denies tingling Neuro Denies abnormal gait, Denies dizziness, Denies frequent falls, Denies numbness, Denies tingling and Denies weakness Endo Denies fatigue and Denies palpitations Physical Exam Vital Signs: Last Vital Signs Pulse 82 12/06/24 13:31 BP 130/72 12/06/24 13:31 BMI result Body Mass Index 52.4 GENERAL APPEARANCE: in no acute distress, obese. NECK: no carotid bruit, no jugular venous distention. SKIN: no suspicious lesions, warm and dry. HEART: no murmurs, regular rate and rhythm. LUNGS: clear to auscultation bilaterally. ABDOMEN: soft, nontender. EXTREMITIES: no edema. PERIPHERAL PULSES: equal. NEUROLOGIC: No gross deficits, AAO X 3 Office Procedures EKG Details: Sinus rhythm 82 beats per minute, normal axis, nonspecific T-wave changes, QTC 441 milliseconds. [id number], Complete Assessment & Plan Assessment & Plan (1) Hypertension: Code(s): I10 - Essential (primary) hypertension Category: Medical (2) Current smoker: Code(s): F17.200 - Nicotine dependence, unspecified, uncomplicated Category: Social Hx (3) S/P coronary angioplasty: Code(s): Z98.61 - Coronary angioplasty status Category: Surgical (4) Stable angina: Code(s): I20.89 - Other forms of angina pectoris Category: Medical Plan 44-year-old female with tobacco abuse and previous history of coronary disease and NSTEMI when she had a drug-eluting stent placed to the left circumflex artery. Denying any anginal symptoms. Blood pressure well controlled. Continue aspirin and Plavix at this stage. Unfortunately continues to smoke. Morbid obesity and she is on Wegovy right now. She is going to start cardiac rehabilitation and regular exercise. Thank you for allowing me to participate in the care of your patient. Please feel free to contact me if you have any questions. Coding Level of Care Code Est Pt Level 4 (72028) Complex EM visit Add On G2211 Diagnoses Hypertension I10 Current smoker F17.200 S/P coronary angioplasty Z98.61 Stable angina I20.89 CPT Codes EKG - CPT: [id number], Complete ([id number])
[2024-12-06 13:31] VITALS: BP 130/72; PULSE 82; BMI 52.4
--- OUTSIDE RECORDS SUMMARY | 2024-12-06 15:34 | XMS_ITS | Encounter Summary ---
Author Organization [facility] Address [address] [place] [address] Care Team Providers Care Client Specialist Name Role Phone Luke Desouza MD Primary Care Provider [phone] Aster Prather NP Primary Care Provider Prem yarbrough Encounter Details Date Type Department Care Team Description 06/16/2012 Release of Information Medical Records [address] [place] [id number] Abstract, Provider Social History Tobacco Use Types Packs/Day Years Used Date Smoking Tobacco: Every Day Cigarettes 0.5 Alcohol Use Standard Drinks/Week Comments Yes 0.8 (1 standard drink = 0.6 oz p ure alcohol) Sex Assigned at Date Recorded Not on file documented as of this encounter Plan of Treatment Not on file documented as of this encounter Visit Diagnoses Not on filedocumented in this encounter Care Teams Client Specialist Relationship Specialty Start Date End Date Luke Desouza MD [address] [place] [id number] PCP - General Internal Medicine 06/14/12 06/21/24 Aster Prather NP [address] [place] [id number] PCP - General Nurse Practioner Adult Health 06/22/24 documented as of this encounter
--- OUTSIDE RECORDS SUMMARY | 2024-12-06 15:34 | XMS_ITS | Clinical Summary ---
Author Organization [facility] Address [address] [place] [address] Care Team Providers Care Supervisor Fusing Room Name Role Phone Aster Leiva NP Primary Care Provider [phone] Source Comments PLEASE NOTE, if this patient is a minor, it may be UNLAWFUL to discuss sensitive information that is contained in these records (such as FAMILY PLANNING, MENTAL HEALTH or SUBSTANCE ABUSE) with the minor patient's parent or other person without the patient's specific authorization.[facility] Allergies Active Allergy Reactions Criticality Noted Date Comments Ticagrelor 02/18/2024 Allergy reaction Medications meclizine (ANTIVERT) 25 mg tabletIndications :Dizziness Take 1 Tablet by mouth once daily as needed for nausea 30 Tablet 1 10/08/19 24 Active metoprolol succinate XL (TOPROL-XL) 25 mg 24 hr tablet Take 25 mg by mouth once daily 10/11/19 24 Active rosuvastatin (CRESTOR) 5 mg tabletIndications :Hyperlipidemia, unspecified hyperlipidemia type Take 1 Tablet by mouth nightly at bedtime 90 Tablet 3 11/30/19 [address] aspirin [address] tabletIndications :Hyperlipidemia, unspecified hyperlipidemia type Take 1 Tablet by mouth once daily 90 Tablet 3 11/30/19 24 Active clopidogreL (PLAVIX) 75 mg tablet Take 75 mg by mouth once daily 12/15/19 24 Active cyclobenzaprine (FLEXERIL) 10 mg tabletIndications :Chronic low back pain, unspecified back pain laterality, unspecified whether sciatica present TAKE 1 TABLET BY MOUTH THREE TIMES A DAY NEEDED FOR MUSCLE SPASMS 90 Tablet 04/14/20 24 Active polymyxin B sulf-trimethoprim (POLYTRIM) 10,000 unit- 1 mg/mL ophthalmic solutionIndicatio ns:Acute bacterial conjunctivitis of left eye Place 1 Drop into the left eye every 3 (three) hours 10 mL 05/30/20 24 Active PRED FORTE 1 % ophthalmic suspension Every 4 hours 06/19/20 24 Active erythromycin (ROMYCIN) 5 mg/gram (0.5 %) ophthalmic ointment Place 0.5 Inches into the left eye every 6 (six) hours X 7 weeks 3.5 g 06/22/20 24 Active omeprazole (PRILOSEC) [address] capsuleIndication s:Morbid obesity ([facility]) Take 1 Capsule by mouth every morning before breakfast 90 Capsule 1 08/25/20 24 Active polyethylene glycol, PEG, 3350 (GLYCOLAX) 17 gram/dose powderIndications :Morbid obesity ([facility]) Take 17 g by mouth once daily 510 g 1 08/25/20 24 Active docusate sodium (COLACE) 100 mg capsuleIndication s:Morbid obesity ([facility]) Take 1 Capsule by mouth 2 (two) times daily 180 Capsule 1 08/25/20 24 Active fluconazole (DIFLUCAN) 150 mg tabletIndications :Vulvovaginal candidiasis 150 mg orally every 72 hours for three doses followed by 150 mg once per week for six months. 52 Tablet 08/25/20 24 Active metroNIDAZOLE (FLAGYL) 500 mg tabletIndications :BV (bacterial vaginosis) Take 1 Tablet by mouth 2 (two) times daily Avoid alcohol consumption during treatment and 48 hours post treatment. Take pills first followed by falgyl gel intravaginally sent in separate order 14 Tablet 08/25/20 24 Active metroNIDAZOLE (METROGEL) 0.75 % (37.5mg/5 gram) vaginal gelIndications:BV (bacterial vaginosis) Place 1 Applicator vaginally 2 (two) times daily Take twice a week for 6 months 70 g 4 08/25/20 24 Active lisinopriL 40 mg tabletIndications :Primary hypertension TAKE 1 TABLET BY MOUTH EVERY DAY 90 Tablet 3 09/18/19 25 Active atomoxetine (STRATTERA) 80 mg capsuleIndication s:ADHD (attention deficit hyperactivity disorder), combined type Take 1 Capsule by mouth once daily for 180 days 30 Capsule 5 10/31/19 25 025 Active DULoxetine (CYMBALTA) [address] capsuleIndication s:Chronic low back pain, unspecified back pain laterality, unspecified whether sciatica present Take 1 Capsule by mouth nightly at bedtime for 180 days 30 Capsule 5 10/31/19 25 025 Active MISCELLANEOUS MEDICAL SUPPLY MISCIndications:L umbar radiculitis,Chron ic low back pain, unspecified back pain laterality, unspecified whether sciatica present Please dispense one rollator walker with seat for chronic back and knee pain that limits ambulation. Ht 5'9 Wt 362lbs. Please deliver to pt's address on file if possible. 1 Each 12/02/19 25 Active acetaminophen (TYLENOL) 500 mg tabletIndications :Chronic low back pain, unspecified back pain laterality, unspecified whether sciatica present Take 2 Tablets by mouth every 6 (six) hours as needed for pain 120 Tablet 1 12/02/19 25 Active diclofenac sodium (VOLTAREN) 1 % gelIndications:Yanira mbar radiculitis APPLY 2 GRAMS TOPICALLY 2 TIMES DAILY. 400 g 1 12/02/19 25 Active nystatin (MYCOSTATIN) 100,000 unit/gram powderIndications :Candidiasis Apply topically 2 (two) times daily 60 g 1 12/02/19 25 Active tirzepatide, weight loss, (ZEPBOUND) 5 mg/0.5 mL pnij Inject 5 mg into the skin once a week 2 mL 1 12/02/19 25 Active amLODIPine (NORVASC) 5 mg tabletIndications :Primary hypertension Take 1 Tablet by mouth once daily 30 Tablet 1 12/02/19 25 Active MISCELLANEOUS MEDICAL SUPPLY MISCIndications:L umbar radiculitis,Chron ic low back pain, unspecified back pain laterality, unspecified whether sciatica present Please dispense one rollator walker with seat for chronic back and knee pain that limits ambulation. Ht 5'9 Wt 362lbs. Please deliver to pt's address on file if possible. 1 Each 09/07/19 24 025 Disconti nued(Reo rder (E-Cance l Not Sent)) nystatin (MYCOSTATIN) 100,000 unit/gram powderIndications :Candidiasis APPLY TO AFFECTED AREA 4 TIMES A DAY 60 g 01/20/20 24 025 Disconti nued(Reo rder (E-Cance l Not Sent)) diclofenac sodium (VOLTAREN) 1 % gelIndications:Yanira crista radiculitis APPLY 2 GRAMS TOPICALLY 2 TIMES DAILY. 400 g 1 04/27/20 24 025 Disconti nued(Reo rder (E-Cance l Not Sent)) semaglutide, weight loss, (WEGOVY) 1 mg/0.5 mL pnij INJECT 1MG INTO THE SKIN ONCE A WEEK 2 mL 07/31/20 24 025 Disconti nued(The rapy complete d/Not needed) tirzepatide, weight loss, (ZEPBOUND) 5 mg/0.5 mL pnij Inject 5 mg into the skin once a week 2 mL 1 09/11/19 25 025 Disconti nued(Reo rder (E-Cance l Not Sent)) acetaminophen (TYLENOL) 500 mg tabletIndications :Chronic low back pain, unspecified back pain laterality, unspecified whether sciatica present TAKE 2 TABLETS BY MOUTH EVERY 6 HOURS NEEDED FOR PAIN. 120 Tablet 1 09/26/19 25 025 Disconti nued(Reo rder (E-Cance l Not Sent)) amLODIPine (NORVASC) 5 mg tabletIndications :Primary hypertension Take 1 Tablet by mouth once daily 30 Tablet 1 12/02/19 25 025 Disconti nued(Err or) Active Problems Problem Noted Date Diagnosed Date Lumbar facet arthropathy 12/01/2024 Myofascial pain syndrome 12/01/2024 Supraumbilical hernia 12/01/2024 ADHD (attention deficit hype ractivity disorder), combined type 06/15/2024 MDD (major depressive disord er), recurrent episode, moderate ([facility]) 01/27/2024 NSTEMI (non-ST elevated myocardial infarction) ( [facility]) 12/07/2023 Overview (12/01/2024): 12/01/24; has appt 08 December with cardio Primary hypertension 11/10/2022 Lumbar radiculitis 09/01/2022 Chronic low back pain 09/01/2022 Shoulder pain 09/22/2012 Morbid obesity ([facility]) 07/12/2012 Other specified anxiety disorder 06/15/2012 Back pain 06/15/2012 Depression 06/15/2012 PTSD (post-traumatic stress disorder) 06/15/2012 Anxiety 06/15/2012 Resolved Problems Problem Noted Date Diagnosed Date Resolved Date Acute pharyngitis 05/22/2021 06/23/2021 Encounters Date Type Department Care Team Description 12/01/2024 3:00 PM EDT Office Visit [address] [phone] Aster Leiva NP PTSD (post-traumatic stress disorder) (Primary Dx); Chronic low back pain, unspecified back pain laterality, unspecified whether sciatica present; Lumbar radiculitis; Candidiasis; NSTEMI (non-ST elevated myocardial infarction) ([facility]); MDD (major depressive disorder), recurrent episode, moderate ([facility]); ADHD (attention deficit hyperactivity disorder), combined type; Anxiety; Primary hypertension; Supraumbilical hernia; Recurrent vaginitis 12/01/2024 Interim Notes [address] [phone] Lilliam Neville [place] 11/16/2024 Interim Notes [address] [phone] Lina Castro 10/31/2024 11:00 AM EST / Visits [address] [phone] Ning Burris PMHNP MDD (major depressive disorder), recurrent episode, moderate ([facility]) (Primary Dx); Chronic post-traumatic stress disorder (PTSD); Anxiety; ADHD (attention deficit hyperactivity disorder), combined type; PTSD (post-traumatic stress disorder); Chronic low back pain, unspecified back pain laterality, unspecified whether sciatica present 10/09/2024 Interim Notes [address] [phone] Flower Dang 09/21/2024 / INTERIM [address] [phone] [facility] Worker PTSD (post-traumatic stress disorder) (Primary Dx); MDD (major depressive disorder), recurrent episode, moderate ([facility]); Chronic post-traumatic stress disorder (PTSD); Anxiety; ADHD (attention deficit hyperactivity disorder), combined type; Chronic low back pain, unspecified back pain laterality, unspecified whether sciatica present 09/20/2024 /[address] [phone] [facility] PTSD (post-traumatic stress disorder) (Primary Dx); MDD (major depressive disorder), recurrent episode, moderate (HCC-CMS); Chronic post-traumatic stress disorder (PTSD); Anxiety; ADHD (attention deficit hyperactivity disorder), combined type; Chronic low back pain, unspecified back pain laterality, unspecified whether sciatica present 09/20/2024 Travel 09/18/2024 /[address] [phone] [facility] Worker PTSD (post-traumatic stress disorder) (Primary Dx); MDD (major depressive disorder), recurrent episode, moderate ([facility]); Chronic post-traumatic stress disorder (PTSD); Anxiety; ADHD (attention deficit hyperactivity disorder), combined type; Chronic low back pain, unspecified back pain laterality, unspecified whether sciatica present 09/18/2024 Travel 09/07/2024 Interim Notes [address] [phone] Gabriel Raymundo [place] 09/07/2024 Interim Notes [facility] [address] [place] [phone] Lyssa Dickens [place] from Last 3 Months Immunizations Immunization Administration Dates Next Due Flu, Preservative Free 05/27/2023,10/06/2022 Hep B,adult,adjuvanted (HEPLISAV) 08/05/2023, INFLUENZA, SEASONAL, INJECTABLE 06/27/2014,06/15 Influenza (FLUBLOK),recombinant,injectable,preservati ve Free 06/22/2024 PNEUMOCOCCAL CONJUGATE PCV 20 (Prevnar) 10/17/20 24 PNEUMOCOCCAL POLYSACCHARIDE PPV23 05/27/2023, TDAP 10/06/2022,06/15/2012,07/08/2010 Social History Tobacco Use Types Packs/Day Years Used Date Smoking Tobacco: Every Day Cigarettes Smokeless Tobacco: Never Tobacco Cessation:Ready to Q uit: No; Counseling Given: Yes Alcohol Use Standard Drinks/Week Comments Yes 0 (1 standard drink = 0.6 oz pur e alcohol) ocassionally Social Connections Answer Date Recorded Connectedness 1 12/01/2024 Financial Resource Strain Answer Date R ecorded Financial Resource Strain 1 2024 Stress Answer Date Recorded Stress 1 12/01/2024 Physical Activity Answer Date Recorded Physical Activity 0 05/22/2021 Food Insecurity Answer Date Recorded Food 1 12/01/2024 Transportation Needs Answer Date Record ed Transportation 1 12/01/2024 Housing Stability Answer Date Recorded Housing 1 12/01/2024 Safety and Environment Answer Date Acosta rded Safety 1 01/11/2024 Utilities Answer Date Recorded Utilities 1 12/01/2024 Employment Answer Date Recorded Stress 0 10/06/2022 Comments No Sex and Gender Information Value Date Recorded Sex Assigned at Female 09/01/2022 11:11 AM PST Legal Sex Female 11:36 AM PDT Gender Identity Female 09/01/2022 11:11 AM PST Sexual Orientation Straight 09/01/2022 11 :11 AM PST Last Filed Vital Signs Vital Sign Reading Time Taken Comments Blood Pressure 100/70 12/01/2024 2:21 PM EDT Pulse 102 12/01/2024 2:21 PM EDT Temperature 36.1 ??C (96.9 ??F) 12/01/2024 2:21 PM ED T Respiratory Rate 20 12/01/2024 2:21 PM EDT Oxygen Saturation 96% 12/01/2024 2:21 PM EDT Inhaled Oxygen Concentration - - Weight 157.9 kg (348 lb) 12/01/2024 2:21 PM EDT Height 175.3 cm (5' 9 ) 12/01/2024 2:21 PM EDT Body Mass Index 51.39 12/01/2024 2:21 PM EDT Plan of Treatment Upcoming Encounters Date Type Department Care Team (Late st Contact Info) Description 12/14/2024 11:30 AM EDT BH/MH Visits [facility] [address] [place] [phone] Latoya Jack, Community Health Worker [address] [place] [address] 01/02/2025 1:40 PM EDT Office Visit [facility] [address] [place] [phone] Li Garcia [address] [place] [address] 01/05/2025 1:00 PM EDT Office Visit [facility] [phone] [place] [phone] Aster Leiva, GARMENT FINISHER [address] [place] [address] 01/23/2025 11:00 AM EDT BH/MH Visits [address] [phone] Ning Burris, PMHNP [address] [place] [address] Health Maintenance Due Date Last Done Comments Dental Perio Charting 1980 HPV Screening 1978 Breast Cancer Screening (Mammogram) 2018 CT Colonography 2023 Colonoscopy 2023 Colorectal Cancer Screening 2023 FIT/gFOBT 2023 Fecal DNA 2023 Flexible Sigmoidoscopy 2023 [id number] ( season) 2024 12/09/2021, 06/17/2021, 05/15/2021 Diabetes Screening 10/11/2024 10/11/2023, 0 10/11/2023, 05/27/2023, Additional history exists Lipid Screening 10/11/2024 10/11/2023, 05/08, 10/04/2014 Annual Preventive Care Visit 12/07/2024 12/08/2023, 05/27/2023 Relationship Safety Screening/Counseling 01/10/2025 01/11/2024, 09/07/2023, 10/06/2022 Depression Monitoring 03/03/2025 12/01/2024 , 03/29/2024, 12/07/2023, Additional history exists Dental BW 05/25/2025 05/23/2024 Dental Examination 05/25/2025 05/23/2024 Dental Prophy 05/25/2025 05/23/2024 Anxiety Screening 12/01/2025 12/01/2024 Tobacco Cessation Counseling (#1) 12/01/2025 04/04/2024, 02/18/2024, 06/29/2023 Cervical Cancer Screening 12/07/2026 Pap + HPV 12/07/2026 12/08/2023 Pap Smear 12/07/2026 12/08/2023, 09/07, 04/20/2008 Dental FMX/Pano 05/25/2029 05/23/2024 Imm-DTaP/Tdap/Td (4 - Td or Tdap) 10/06/2032 10/06/2022, 06/15/2012, 07/08/2010 Imm-Hepatitis B Completed 08/05/2023, 06/29/2023 Imm-Influenza Completed 06/22/2024, 05/08, 10/06/2022, Additional history exists Imm-Pneumococcal Completed 06/22/2024, , 06/27/2014 HIV Screening Completed 09/04/2024, 01/2024, 05/27/2023 Hepatitis C Screening Completed 09/04/2024, 023 Alcohol and Drug Screen Completed 12/02/19, 12/07/2023, 10/06/2022 Cervical Ablation/Cold-Knife Conization Discontinued Cervical Cryotherapy Discontinued Colposcopy Discontinued Endometrial Biopsy Discontinued Excision/Leep Discontinued HPV Genotyping Discontinued Vaginal Pap Discontinued Vulvoscopy Discontinued Procedures Procedure Name Priority Date/Time Associated Diagnosis Comments OTHER ORDERS SCANNED DOCUMENT 12/01/2024 3:00 AM EDT OTHER ORDERS SCANNED DOCUMENT 11/22/2024 3:00 AM EDT HIV 1/2 AG & AB W/RFLX (4TH GEN) Routine 09/04/2024 3:37 PM EST Vaginal discharge HEPATITIS C AB W/RFLX HCV RNA, QT, RT PCR Routine 09/04/2024 3:37 PM EST Vaginal discharge INTRAORAL - COMP SERIES OF RADIOGRAPHIC IMAGES Routine 05/23/2024 3:00 PM EDT Encounter for dental examination PROPHYLAXIS - ADULT Routine 05/23/2024 3 :00 PM EDT Encounter for dental examination COMP ORAL EVALUATION - NEW/ESTABLISHED PATIENT Routine 05/23/2024 3:00 PM EDT Encounter for dental examination THIN PREP IMAGE PAP + HPV RNA E6/E7 W/RFLX HPV 16, 18/45 Routine 12/08/2023 1:16 PM EDT Cervical smear, as part of routine gynecological examination Screening for malignant neoplasm of cervix HEMOGLOBIN GLYCOSYLATED A1C Routine 10/11/2023 2:49 PM EST Hospital discharge follow-up LIPID PANEL Routine 10/11/2023 2:49 PM EST Hospital discharge follow-up from Last 3 Months or Most Recently Relevant to Health Maintenance Results * OTHER ORDERS SCANNED DOCUMENT (12/01/2024 3:00 AM EDT) Only the most recent of2 resultswithin the time period is included. 12/01/2024 3:00 AM EDT Aster Leiva NP SCAN OTHER ORDERS Final Resu lt * HEPATITIS C AB W/RFLX HCV RNA, QT, RT PCR (09/04/2024 3:37 PM EST) Pathologist [facility] HEPATITIS C ANTIBODY NON-REACT MANI NON-REACT MANI [facility] Comment: HCV antibody was non-reactive. There is no laboratory evidence of HCV infection. In most cases, no further action is required. However, if recent HCV exposure is suspected, a test for HCV RNA (test code 47900) is suggested. For additional information please refer to http://education.Attracta/faq/WFP39m7 (This link is being provided for informational/ educational purposes only.) Blood Blood / Unknown 09/04/2024 3 :37 PM EST 09/04/2024 3:38 PM EST us Aster Leiva NP LAB - BLOOD DRAW Edited Resu lt - Final Performing Organization Address City/[facility]/ZIP Co de [place] [address], [facility] [address] [phone] * HIV 1/2 AG & AB W/RFLX (4TH GEN) (09/04/2024 3:37 PM EST) Pathologist [facility] HIV AG/AB, 4TH GEN NON-REAC TIVE NON-REAC TIVE [facility] Comment: HIV-1 antigen and HIV-1/HIV-2 antibodies were not detected. There is no laboratory evidence of HIV infection. PLEASE NOTE: This information has been disclosed to you from records whose confidentiality may be protected by state law. ??If your state requires such protection, then the state law prohibits you from making any further disclosure of the information without the specific written consent of the person to whom it pertains, or as otherwise permitted by law. A general authorization for the release of medical or other information is NOT sufficient for this purpose. ?? For additional information please refer to http://education.[employer].MeetingSprout/faq/BPC243 (This link is being provided for informational/ educational purposes only.) The performance of this assay has not been clinically validated in patients less than 2 years old. Blood Blood / Unknown 09/04/2024 3 :37 PM EST 09/04/2024 3:38 PM EST us Aster Leiva NP LAB - BLOOD DRAW Final Resul t Performing Organization Address [facility]/ZIP Co de Phone Number [facility] [address] [address], [facility] [address] [phone] * THIN PREP IMAGE PAP + HPV RNA E6/E7 W/RFLX HPV 16, 18/45 (12/08/2023 1:16 PM EDT) CLINICAL INFORMATION See Note [facility] Comment:Routine exam LMP See Note [facility] Comment:NONE GIVEN PREV. PAP See Note [facility] Comment:9+ PREV. BX See Note [facility] Comment:NONE GIVEN SOURCE See Note [employer] [facility] Comment:Cervix STATEMENT OF ADEQUACY See Note [employer] [facility] Comment: Satisfactory for evaluation. Endocervical/transformation zone component absent. INTERPRETATION/RESU LT See Note [employer] [facility] Comment: Cytology Results: Negative for intraepithelial lesion or malignancy. INFECTION See Note [facility] Comment: Shift in vaginal xiomara suggestive of bacterial vaginosis. COMMENT See Note [facility] Comment: This Pap test has been evaluated with computer assisted technology. DENTAL AMALGAM PROCESSOR See Note [facility] [employer] [facility] Comment: EXJ, CT(ASCP) CT Screening Location: [place] [address] [employer] [facility] HPV MRNA E6/E7 Not Detected Not Detected [facility] Comment: Methodology: Tack Picker-Mediated Amplification This assay detects E6/E7 viral messenger RNA (mRNA) from 14 high-risk HPV types (16,18,31,33,35,39,45,51,52,56,58,59,66,68). Cervical sources are required for HPV testing. If a vaginal source from a patient who has had a total hysterectomy with removal of cervix was submitted, please contact the testing laboratory for alternative testing options. For additional information, please refer to http://education.Attracta/faq/TLK032a1 (This link if provided for information/ educational purposes only.) Swab Endocervical structure / Unknown 12/08/2023 1:16 PM EDT 12/09/2023 2:46 AM EDT Narrative [employer] [facility] - 12/10/2023 6:22 AM EDT EXPLANATORY NOTE: The Pap is a screening test for cervical cancer. It is not a diagnostic test and is subject to false negative and false positive results. It is most reliable when a satisfactory sample, regularly obtained, is submitted with relevant clinical findings and history, and when the Pap result is evaluated along with historic and current clinical information. Stephanie Sanchez PA-C LAB - NO BLOOD DRAW Final Re sult Performing Organization Address [facility]/ZIP Co de [place] [address], [facility] [address] [phone] * (ABNORMAL) HEMOGLOBIN GLYCOSYLATED A1C (10/11/2023 2:49 PM EST) HEMOGLOBIN A1C 6.2(H) <5.7 % of total Hgb [employer] [facility] Comment: For someone without known diabetes, a hemoglobin A1c value between 5.7% and 6.4% is consistent with prediabetes and should be confirmed with a follow-up test. For someone with known diabetes, a value <7% indicates that their diabetes is well controlled. A1c targets should be individualized based on duration of diabetes, age, comorbid conditions, and other considerations. This assay result is consistent with an increased risk of diabetes. Currently, no consensus exists regarding use of hemoglobin A1c for diagnosis of diabetes for children. Blood Blood / Unknown 10/11/2023 2 :49 PM EST 10/11/2023 2:49 PM EST Aster Leiva NP LAB - BLOOD DRAW Final Resul t Performing Organization Address [facility] Co de Phone Number [facility] [address] [address], [facility] [address] [phone] * (ABNORMAL) LIPID PANEL (10/11/2023 2:49 PM EST) CHOLESTEROL, TOTAL 214(H) <200 mg/dL [employer] [facility] HDL CHOLESTEROL 42(L) > OR = 50 mg/dL [facility] TRIGLYCERIDES 224(H) <150 mg/dL [employer] [facility] Comment: If a non-fasting specimen was collected, consider repeat triglyceride testing on a fasting specimen if clinically indicated. Segundo et al. J. of Clin. Lipidol. 2015;9:129-169. LDL-CHOLESTEROL 136(H) 99 mg/dL (calc) [facility] Comment: Reference range: <100 Desirable range <100 mg/dL for primary prevention; ?? <70 mg/dL for patients with CHD or diabetic patients with > or = 2 CHD risk factors. LDL-C is now calculated using the Raven calculation, which is a validated novel method providing better accuracy than the Friedewald equation in the estimation of LDL-C. Rj JOYNER et al. ROSA. 2013;310(19): 9062-5688 (http://education.Wellsense Technologies/faq/IQM041) CHOL/HDLC RATIO 5.1(H) <5.0 (calc) [facility] NON-HDL CHOLESTEROL 172(H) <130 mg/dL (calc) [facility] Comment: For patients with diabetes plus 1 major ASCVD risk factor, treating to a non-HDL-C goal of <100 mg/dL (LDL-C of <70 mg/dL) is considered a therapeutic option. Blood Blood / Unknown 10/11/2023 2 :49 PM EST 10/11/2023 2:49 PM EST us Aster Leiva NP LAB - BLOOD DRAW Final Resul t [facility] [address] [address], [facility] [address] [place] [address] from Last 3 Months or Most Recently Relevant to Health Maintenance Insurance [employer] [facility] [place] MED[place] DENTAL Care Teams Supervisor Fusing Room Relationship Specialty Start Date End Date Aster Leiva NP [address] [place] [address] PCP - General Internal Medicine 09/01/22
--- OUTSIDE RECORDS SUMMARY | 2024-12-06 15:34 | XMS_ITS | Encounter Summary ---
Author Organization [facility] Address [address] [place] [address] Care Team Providers Care Lye Treater Name Role Phone Luke Desouza MD Primary Care Provider [phone] Aster Prather NP Primary Care Provider Prem yarbrough Encounter Details Date Type Department Care Team Description 09/28/2014 IMPORT EXPORT COORDINATOR/[facility] Report Medical Records [address] [place] [id number] Abstract, Provider Social History Tobacco Use Types Packs/Day Years Used Date Smoking Tobacco: Every Day Cigarettes 0.5 Smokeless Tobacco: Never Alcohol Use Standard Drinks/Week Comments Yes 0.8 (1 standard drink = 0.6 oz p ure alcohol) Sex Assigned at Date Recorded Not on file documented as of this encounter Plan of Treatment Not on file documented as of this encounter Visit Diagnoses Not on filedocumented in this encounter Care Teams Lye Treater Relationship Specialty Start Date End Date Luke Desouza MD [address] [place] [id number] PCP - General Internal Medicine 06/14/12 06/21/24 Aster Prather NP [address] [place] [id number] PCP - General Nurse Practioner Adult Health 06/22/24 documented as of this encounter
--- OUTSIDE RECORDS SUMMARY | 2024-12-06 15:34 | XMS_ITS | Clinical Summary ---
Author Organization [address] [facility] Address [address] [place] [address] Phone Care Team Providers Care Data Processing Supervisor Name Role Phone Physician, Pcp Unknown Primary Care Provider Zoe vailable Allergies Active Allergy Reactions Criticality Noted Date Comments Penicillins Unknown 10/07/2024 Ticagrelor 06/22/2024 Medications aspirin 81 mg EC tablet Take 1 tablet (81 mg total) by mouth 1 (one) time each day. 4 Active acetaminophen (TYLENOL) 500 mg tablet 1,000 mg every 6 hours. 4 Active atomoxetine (STRATTERA) 80 mg capsule Take 1 capsule (80 mg total) by mouth 1 (one) time each day. 4 Active clopidogreL (PLAVIX) 75 mg tablet Take 1 tablet (75 mg total) by mouth 1 (one) time each day. 4 Active cyclobenzaprine (FLEXERIL) 10 mg tablet 3 times daily. 4 Active diclofenac (VOLTAREN) 1 % topical gel 2 times daily. 4 Active DULoxetine (CYMBALTA) [address] capsule Take 1 Capsule by mouth at bedtime. Active erythromycin 5 mg/gram (0.5 %) ophthalmic ointment APPLY TO EACH EYE 4 TIMES A DAY 4 Active famotidine (PEPCID) 20 mg tablet 2 times daily. 4 Active lisinopril (PRINIVIL,ZESTR IL) 40 mg tablet Take 1 tablet (40 mg total) by mouth 1 (one) time each day. Active meclizine (ANTIVERT) 25 mg tablet Take by mouth daily. Active metoprolol succinate (TOPROL-XL) 25 mg 24 hr tablet Take 1 tablet (25 mg total) by mouth 1 (one) time each day. 4 Active nystatin (MYCOSTATIN) 100,000 unit/gram powder Apply topically 4 times daily. Active trimethoprim-po lymyxin b (POLYTRIM) ophthalmic solution 1 drop in left eye every 3 hours 4 Active prednisoLONE acetate (Pred Forte) 1 % ophthalmic suspension 1 drop every 4 hours 4 Active rosuvastatin (CRESTOR) 5 mg tablet 1 Tablet daily. 4 Active semaglutide (WEGOVY SUBQ) Inject under the skin. Active polyethylene glycol (Golytely) 236-22.74-6.74 -5.86 gram solution Take 4L by mouth once for one dose. May substitue any PEG. Starting at 6PM the night before your procedure drink 1 8oz glasses at your own pace until you complete half of the gallon. Finish 2nd half of the gallon 5 hours before your procedure. 4000 mL 5 Active bisacodyL (DULCOLAX) 5 mg EC tablet Take 2 tablets by mouth right before beginning bowel prep. See instructions provided by the office 2 tablet 5 Active Active Problems Problem Noted Date Diagnosed Date Shoulder pain 09/22/2012 Morbid obesity 07/12/2012 Depression 06/15/2012 Anxiety 06/15/2012 PTSD (post-traumatic stress disorder) 06/15/2012 Back pain 06/15/2012 Encounters Date Type Department Care Team Description 11/28/2024 Telephone Gastroenterology [facility] [address] [address] Cathy Swanson LPN Anticoagulation (Colonoscopy on 12/21/[address] Hernandez[address] 11/13/2024 Telephone Gastroenterology [facility] [address] [facility] [address] [id number] Ju Reed MD special procedure 10/26/2024 Telephone Gastroenterology [facility] [place] [address] [place] [address] Cathy Swanson LPN Anticoagulation (Colonoscopy on 11/24/[address] Reed) 10/07/2024 4:38 PM EST - 10/07/2024 7:34 PM EST Emergency [facility] Emergency [address] [place] [address] Chronic right-sided low back pain with right-sided sciatica (Primary Dx) Discharge Disposition: Home or Self Care from Last 3 Months Immunizations Name Administration Dates Next Due Influenza trivalent, 0.5mL, preservative free (Fluarix; FluLaval; Fluzone) ages 6mo and older (Afluria) 3 years and older 06/15/2012 Tdap Tetanus diptheria acell ular pertussis (Boostrix; Adacel) 7yo and older 06/15/2012 Surgical History Surgery Date Site/Laterality Comments CHOLECYSTECTOMY 2009 PROCEDURE: HISTORICAL CHOLECYSTECTOMY Medical History Medical History Date Comments Back pain DX:Back pain Depression DX:Depression; C OMMENT: [facility], Dr. Franklin Terrazas PTSD (post-traumatic stress disorder) DX:PTSD (post-traumatic stress disorder) Anxiety DX:Anxiety Family History Medical History Relation Name Comments Autoimmune disease Neg Hx Breast cancer Neg Hx Colon cancer Neg Hx Coronary artery disease Neg Hx Diabetes Neg Hx Heart attack Neg Hx Heart failure Neg Hx Hyperlipidemia Neg Hx Hypertension Neg Hx Mental illness Neg Hx Prostate cancer Neg Hx Sleep apnea Neg Hx Thyroid disease Neg Hx Relation Name Status Comments Father (Age 50s) Blood di sorder Mother Alive Depression Sister 1 Alive healthy Sister 2 Alive healthy Social History Tobacco Use Types Packs/Day Years Used Date Smoking Tobacco: Every Day Cigarettes Smokeless Tobacco: Never Alcohol Use Standard Drinks/Week Comments Yes 0.8 (1 standard drink = 0.6 oz p ure alcohol) Comments Unknown Sex and Gender Information Value Date Recorded Sex Assigned at Female 10/07/2024 6:48 PM EST Legal Sex Female 9:58 AM EST Gender Identity Female 10/07/2024 6:48 PM EST Sexual Orientation Straight 10/07/2024 6: 48 PM EST Obstetrics History Last Filed Vital Signs Vital Sign Reading Time Taken Comments Blood Pressure 127/93 10/07/2024 3:41 PM EST Pulse 100 10/07/2024 3:41 PM EST Temperature 36.8 ??C (98.2 ??F) 10/07/2024 3:41 PM ES T Respiratory Rate 18 10/07/2024 3:41 PM EST Oxygen Saturation 96% 10/07/2024 3:41 PM EST Inhaled Oxygen Concentration - - Weight 156 kg (345 lb) 10/07/2024 3:41 PM EST Height 175.3 cm (5' 9 ) 10/07/2024 3:41 PM EST Body Mass Index 50.95 10/07/2024 3:41 PM EST Plan of Treatment Upcoming Encounters Date Type Department Care Team (Late st Contact Info) Description 12/21/2024 10:00 AM EDT Appointment [facility] Endoscopy [address] [place] [id number] Taurus Hernandez MD [address] [facility] [address] [place] [address] Health Maintenance Due Date Last Done Comments Breast Cancer Screening 1978 Cervical Cancer Screening: Pap Smear 1999 Colorectal Cancer Screening: Colonoscopy 08/04/2022 HIV Screening 08/04/2022 Social Influencers of Health Screening 08/04/2022 Hypertension/CHF/CAD Annual BMP Blood Test 12/08/2023 10/04/2014 COVID-19 Vaccine ( season) 2024 12/09/2021, 06/17/2021, 05/15/2021 Depression Screening 03/29/2025 03/29/2024 Cholesterol Screening (Lipid Panel) 10/11/2028 10/11/2023, 10/11/2023, 05/27/2023, Additional history exists DTaP,Tdap,and Td Vaccines (4 - Td or Tdap) 10/06/2032 10/06/2022, 06/15/2012, 07/08/2010 Hepatitis B Vaccines Completed 08/05/2023, 06/29/20 23 Influenza Vaccine Completed 06/22/2024, , 10/06/2022, Additional history exists Pneumococcal Vaccine: Pediatrics (0 to 5 Years) and At-Risk Patients (6 to 64 Years) Completed 06/22/2024, 05/27/2023, 06/27/2014 Hepatitis C Screening Completed 09/04/2024, 023 HIB Vaccines Aged Out No longer eligi ble based on patient's age to complete this topic HPV Vaccines Aged Out No longer eligi ble based on patient's age to complete this topic Hepatitis A Vaccines Aged Out No long er eligible based on patient's age to complete this topic IPV Vaccines Aged Out No longer eligi ble based on patient's age to complete this topic MMR Vaccines Aged Out No longer eligi ble based on patient's age to complete this topic Meningococcal ACWY Vaccine Aged Out N o longer eligible based on patient's age to complete this topic Meningococcal B Vacine Aged Out No lo nger eligible based on patient's age to complete this topic RSV Immunization Patients Under 20 months Aged Out No longer eligible based on patient's age to complete this topic Varicella Vaccines Aged Out No longer eligible based on patient's age to complete this topic Procedures Procedure Name Priority Date/Time Associated Diagnosis Comments ANNUAL BMP BLOOD TEST Routine 10/04/2014 LIPID PANEL Routine 10/04/2014 from Last 3 Months or Most Recently Relevant to Health Maintenance Results * Annual BMP Blood Test (10/04/2014) Pathologist [facility] Annual BMP Blood Test abstracted Historical Provider HEALTH MAINTENANCE Final Result * (ABNORMAL) Lipid panel (10/04/2014) LDL/HDL Ratio 6(A) 0 - 4 Triglycerides 210(A) 0 - 200 mg/dL Cholesterol 266(A) 0 - 200 mg/dL HDL 48 >=40 mg/dL LDL Cholesterol 176(A) 0 - 100 mg/dL Blood Venous blood specimen / Unknown Historical Provider LAB BLOOD ORDERABLES Latoya l Result from Last 3 Months or Most Recently [place] [address] [place] Care Teams Data Processing Supervisor Relationship Specialty Start Date End Date Physician, Pcp Unknown PCP - General 10/07/24
--- OUTSIDE RECORDS SUMMARY | 2024-12-06 15:34 | XMS_ITS | Encounter Summary ---
Author Organization [facility] Address [address] [place] [address] Care Team Providers Care Wholesale Representative Name Role Phone Aster Leiva NP Primary Care Provider [phone] Reason for Referral * Gynecology (Routine) - Authorized Specialty Diagnoses / Procedures Referred By Contac t Referred To Contact Gynecology / Family Practice Diagnoses Recurrent vaginitis Aster Leiva NP [address] [place] [address] Phone: tel: fax: [address] [phone] Phone: tel: fax: Referral ID Status Reason Start Date Expiration Date Visits Requested Visits Authorized [id number] Authorized Continuity of Care 12/05/2024 12/05/2025 1 1 Comments Recurrent vaginitis * General Surgery (Routine) - New Request Specialty Diagnoses / Procedures Referred By Contac t Referred To Contact General Surgery Diagnoses Supraumbilical hernia Aster Leiva NP [address] [place] [address] Phone: tel: fax: Referral ID Status Reason Start Date Expiration Date Visits Requested Visits Authorized [id number] New Request Specialty Services Required 12/01/2024 12/01/2025 1 1 Comments A small fat-containing supraumbilical hernia * Home Health Services (STAT) - New Request Specialty Diagnoses / Procedures Referred By Contac t Referred To Contact Diagnoses Chronic low back pain, unspecified back pain laterality, unspecified whether sciatica present Lumbar radiculitis Candidiasis PTSD (post-traumatic stress disorder) NSTEMI (non-ST elevated myocardial infarction) ([facility]) MDD (major depressive disorder), recurrent episode, moderate ([facility]) ADHD (attention deficit hyperactivity disorder), combined type Anxiety Primary hypertension Aster Leiva NP [address] [place] [address] Phone: tel: fax: Referral ID Status Reason Start Date Expiration Date Visits Requested Visits Authorized [id number] New Request Specialty Services Required 12/01/2024 12/01/2025 1 1 Comments IADL Assessment: Cleaning: Performs light daily tasks such as dishwashing, bed making but needs assistance with heavier tasks Shopping: Shops independently for small purchases only. Meal Preparation: Plans, prepares, and serves adequate meals independently Telephone use: Uses telephone (dials, looks up numbers and receives calls) independently Laundry: Launders small items, rinses socks, stockings, etc but needs assistance with other items Managing Money: Manages household finances independently (budgets, writes checks, pays rent and bills, goes to bank), collects and keeps track of income. Managing Medications: Takes medication as prescribed independently Traveling: Needs assistance. Travels on public transportation when assisted or accompanied by another. ADL Assessment: Feeding: Feeds self independently Dressing: Needs cuing/supervision to get dressed. Ambulation: Ambulates independently with or without assistive device. Toileting: Toilets self independently. Bathing : Bathes self independently. Continence care: No incontinence. Grooming: Able to complete some grooming tasks but requires assistance with others. Communication : Communicates independently (or able to communicate with credit risk manager if person does not speak [place] Citizen). Based on Patricia Brenner 's needs, the service most appropriate for the patent is: Recommended Services: Naturopath (TAX AGENT)-- Needs 2 hands-on ADLs Reason for Visit * Reason Comments Follow Up C/o hernia .will mike browning medication refill Encounter Details Date Type Department Care Team (Latest Contact Info) Description 12/01/2024 3:00 PM EDT Office Visit [facility] [address] [place] [address] Aster Leiva, CHRISS [address] [place], [place] [id number] PTSD (post-traumatic stress disorder) (Primary Dx); Chronic low back pain, unspecified back pain laterality, unspecified whether sciatica present; Lumbar radiculitis; Candidiasis; NSTEMI (non-ST elevated myocardial infarction) ([facility]); MDD (major depressive disorder), recurrent episode, moderate ([facility]); ADHD (attention deficit hyperactivity disorder), combined type; Anxiety; Primary hypertension; Supraumbilical hernia; Recurrent vaginitis Social History Tobacco Use Types Packs/Day Years [...] Orientation Straight 09/01/2022 11 :11 AM PST documented as of this encounter Last Filed Vital Signs Vital Sign Reading [...] Mass Index 51.39 12/01/2024 2:21 PM EDT documented in this encounter Progress Notes * Aster Leiva NP - 12/05/2024 1:13 PM EDTAddended by: ASTER LEIVA on: 12/05/2024 01:13 PM Modules accepted: Orders * Aster Leiva NP - 12/01/2024 2:13 PM EDT Subjective: CC: Follow Up (C/o hernia .will need medication refill ) HPI: Patricia Brenner is a 44 year old female patient who presents as same day appointment for evaluation of hernia f/u wants to have it removed.. IADL Assessment: Cleaning: Performs light daily tasks such as dishwashing, bed making but needs assistance with heavier tasks Shopping: Shops independently for small purchases only. Meal Preparation: Plans, prepares, and serves adequate meals independently Telephone use: Uses telephone (dials, looks up numbers and receives calls) independently Laundry: Launders small items, rinses socks, stockings, etc but needs assistance with other items Managing Money: Manages household finances independently (budgets, writes checks, pays rent and bills, goes to bank), collects and keeps track of income. Managing Medications: Takes medication as prescribed independently Traveling: Needs assistance. Travels on public transportation when assisted or accompanied by another. ADL Assessment: Feeding: Feeds self independently Dressing: Needs cuing/supervision to get dressed. Ambulation: Ambulates independently with or without assistive device. Toileting: Toilets self independently. Bathing : Bathes self independently. Continence care: No incontinence. Grooming: Able to complete some grooming tasks but requires assistance with others. Communication : Communicates independently (or able to communicate with credit risk manager if person does not speak [place] Citizen). Based on Patricia Brenner 's needs, the service most appropriate for the patent is: Recommended Services: Naturopath (TAX AGENT)-- Needs 2 hands-on ADLs HPI Had back surgery on November 24, 2024, which involved burning a nerve. Post- surgery, able to walk a few blocks without stopping, but still experiences discomfort and difficulty standing for long periods. Requires a wheelchair and walker for mobility. History of heart attack and currently dealing with Social Security paperwork issues. Disabled and unable to work, relying on Section 8 for housing support. Experiencing stress due to housing concerns and family issues, particularly related to a child's behavior. Anxiety and depression medication is not effective. Has a hernia causing discomfort, especially during bowel movements, and has had it for years. High blood pressure with morning readings of 170/100, accompanied by headaches that eventually subside. Currently taking lisinopril, Plavix, aspirin, and metoprolol for blood pressure management. Pain management includes Tylenol, Voltaren cream, and nystatin powder. Efforts to lose weight and improve health are ongoing, with a focus on exercise and diet but with recent back surgery it has been debilitating Review of Systems ROS negative unless otherwise specified please review HPI Allergies Allergen Reactions Ticagrelor Allergy reaction Patient Active Problem List Diagnosis Lumbar radiculitis Chronic low back pain Morbid obesity ([facility]) Primary hypertension Other specified anxiety disorder Back pain Depression PTSD (post-traumatic stress disorder) Shoulder pain NSTEMI (non-ST elevated myocardial infarction) ([facility]) MDD (major depressive disorder), recurrent episode, moderate ([facility]) ADHD (attention deficit hyperactivity disorder), combined type Lumbar facet arthropathy Myofascial pain syndrome Anxiety Supraumbilical hernia Current Outpatient Medications: acetaminophen (TYLENOL) 500 mg tablet, Take 2 Tablets by mouth every 6 (six) hours as needed for pain, Disp: 120 Tablet, Rfl: 1 amLODIPine (NORVASC) 5 mg tablet, Take 1 Tablet by mouth once daily, Disp: 30 Tablet, Rfl: 1 diclofenac sodium (VOLTAREN) 1 % gel, APPLY 2 GRAMS TOPICALLY 2 TIMES DAILY., Disp: 400 g, Rfl: 1 MISCELLANEOUS MEDICAL SUPPLY [facility], Please dispense one rollator walker with seat for chronic back and knee pain that limits ambulation. Ht 5'9 Wt 362lbs. Please deliver to pt's address on file if possible., Disp: 1 Each, Rfl: 0 nystatin (MYCOSTATIN) 100,000 unit/gram powder, Apply topically 2 (two) times daily, Disp: 60 g, Rfl: 1 tirzepatide, weight loss, (ZEPBOUND) 5 mg/0.5 mL pnij, Inject 5 mg into the skin once a week, Disp:2 mL, Rfl: 1 atomoxetine (STRATTERA) 80 mg capsule, Take 1 Capsule by mouth once daily for 180 days, Disp: 30 Capsule, Rfl: 5 DULoxetine (CYMBALTA) [address] capsule, Take 1 Capsule by mouth nightly at bedtime for 180 days, Disp: 30 Capsule, Rfl: 5 lisinopriL 40 mg tablet, TAKE 1 TABLET BY MOUTH EVERY DAY, Disp: 90 Tablet, Rfl: 3 docusate sodium (COLACE) 100 mg capsule, Take 1 Capsule by mouth 2 (two) times daily, Disp: 180 Capsule, Rfl: 1 fluconazole (DIFLUCAN) 150 mg tablet, 150 mg orally every 72 hours for three doses followed by 150 mg once per week for six months., Disp: 52 Tablet, Rfl: 0 metroNIDAZOLE (FLAGYL) 500 mg tablet, Take 1 Tablet by mouth 2 (two) times daily Avoid alcohol consumption during treatment and 48 hours post treatment. Take pills first followed by falgyl gel intravaginally sent in separate order, Disp: 14 Tablet, Rfl: 0 metroNIDAZOLE (METROGEL) 0.75 % (37.5mg/5 gram) vaginal gel, Place 1 Applicator vaginally 2 (two) times daily Take twice a week for 6 months, Disp: 70 g, Rfl: 4 omeprazole (PRILOSEC) [address] capsule, Take 1 Capsule by mouth every morning before breakfast, Disp: 90 Capsule, Rfl: 1 polyethylene glycol, PEG, 3350 (GLYCOLAX) 17 gram/dose powder, Take 17 g by mouth once daily, Disp:510 g, Rfl: 1 erythromycin (ROMYCIN) 5 mg/gram (0.5 %) ophthalmic ointment, Place 0.5 Inches into the left eye every 6 (six) hours X 7 weeks, Disp: 3.5 g, Rfl: 0 PRED FORTE 1 % ophthalmic suspension, Every 4 hours, Disp: , Rfl: polymyxin B sulf-trimethoprim (POLYTRIM) 10,000 unit- 1 mg/mL ophthalmic solution, Place 1 Drop into the left eye every 3 (three) hours, Disp: 10 mL, Rfl: 0 cyclobenzaprine (FLEXERIL) 10 mg tablet, TAKE 1 TABLET BY MOUTH THREE TIMES A DAY NEEDED FOR MUSCLE SPASMS, Disp: 90 Tablet, Rfl: 0 clopidogreL (PLAVIX) 75 mg tablet, Take 75 mg by mouth once daily, Disp: , Rfl: aspirin [address] tablet, Take 1 Tablet by mouth once daily, Disp: 90 Tablet, Rfl: 3 metoprolol succinate XL (TOPROL-XL) 25 mg 24 hr tablet, Take 25 mg by mouth once daily, Disp: , Rfl: rosuvastatin (CRESTOR) 5 mg tablet, Take 1 Tablet by mouth nightly at bedtime, Disp: 90 Tablet, Rfl: 3 meclizine (ANTIVERT) 25 mg tablet, Take 1 Tablet by mouth once daily as needed for nausea, Disp: 30Tablet, Rfl: 1 Objective: Vitals: 12/01/24 1421 BP: 100/70 Pulse: (!) 102 Resp: 20 Temp: 96.9 ??F (36.1 ??C) TempSrc: Oral SpO2: 96% Weight: (!) 348 lb (157.9 kg) Height: 5' 9 (1.753 m) Physical Exam Assessment and Plan: Patricia Brenner is a 44 year old female patient who presents as same day appointment for evaluation of . F43.10 PTSD (post-traumatic stress disorder) (primary encounter diagnosis) Plan : REFERRAL TO HOME HEALTH CARE M54.50,G89.29 Chronic low back pain, unspecified back pain laterality, unspecified whether sciaticapresent Plan : ACETAMINOPHEN 500 MG TABLET - Take 2 Tablets by mouth every 6 (six) hours as needed for pain REFERRAL TO HOME HEALTH CARE M54.16 Lumbar radiculitis Plan : DICLOFENAC 1 % TOPICAL GEL - APPLY 2 GRAMS TOPICALLY 2 TIMES DAILY. REFERRAL TO HOME HEALTH CARE B37.9 Candidiasis Plan : NYSTATIN 100,000 UNIT/GRAM TOPICAL POWDER - Apply topically 2 (two) times daily REFERRAL TO HOME HEALTH CARE I21.4 NSTEMI (non-ST elevated myocardial infarction) ([facility]) Plan : REFERRAL TO HOME HEALTH CARE F33.1 MDD (major depressive disorder), recurrent episode, moderate ([facility]) Plan : REFERRAL TO HOME HEALTH CARE F90.2 ADHD (attention deficit hyperactivity disorder), combined type Plan : REFERRAL TO HOME HEALTH CARE F41.9 Anxiety Plan : REFERRAL TO HOME HEALTH CARE I10 Primary hypertension Plan : REFERRAL TO HOME HEALTH CARE AMLODIPINE 5 MG TABLET - Take 1 Tablet by mouth once daily AMLODIPINE 5 MG TABLET - Take 1 Tablet by mouth once daily K43.9 Supraumbilical hernia Plan : REFERRAL TO GENERAL SURGERY Pain Management Post-Surgery - Post-surgical pain management required following back surgery on November 24, 2024. Patient reports some improvement but still experiences discomfort. - Refill prescriptions for diclofenac cream and Tylenol. Prescribe nystatin powder. Continue monitoring pain levels and adjust treatment as necessary. Hypertension - Blood pressure is high in the morning, with readings of 170/100. Current medication includes 40 mg of lisinopril, which is the maximum dose. - Prescribe amlodipine as an additional medication to be taken in the evening to help stabilize blood pressure overnight. Continue metoprolol twice a day. Hernia - Presence of a small fat-containing supraumbilical hernia. - Referral to general surgery for hernia removal. Heart Health - History of heart attack. Follow-up with cardiology is needed. - Patient has an upcoming cardiology appointment on December 08, 2024. Encourage starting an exercise regimen post-surgery. Weight Management - Patient is on Zepbound for weight management. - Encourage consistency with medication and diet. Review progress at the next appointment on January. Social and Housing Concerns - Patient is experiencing stress related to housing and social security issues. - Attempt to resend home health referral. Encourage patient to follow up if no response is received. Follow Up: Return for as scheduled. documented in this encounter Miscellaneous Notes * Patient Instructions - Aster Leiva NP - 12/01/2024 2:30 PM EDT If you are not able to keep your appointment please call 24-48 hours before your appointment to cancel or reschedule. documented in this encounter Plan of Treatment Upcoming Encounters Date Type Department Care Team (Late st Contact Info) Description 12/14/2024 11:30 AM EDT BH/MH Visits [address] [phone] Latoya Jack, Community Health Worker [address] [place] [address] 01/02/2025 1:40 PM EDT Office Visit [facility] [address] [place] [phone] [address] [place] [address] 01/05/2025 1:00 PM EDT Office Visit [address] [phone] Aster Leiva NP [address] [place] [address] 01/23/2025 11:00 AM EDT /MH Visits [address] [phone] Ning Burris, PMHNP [address] [place] [phone] Scheduled Referrals Name Type Priority Associated Diagnoses Orde r Schedule REFERRAL TO HOME HEALTH CARE Referral Routine Chronic low back pain, unspecified back pain laterality, unspecified whether sciatica present Lumbar radiculitis Candidiasis PTSD (post-traumatic stress disorder) NSTEMI (non-ST elevated myocardial infarction) ([facility]) MDD (major depressive disorder), recurrent episode, moderate ([facility]) ADHD (attention deficit hyperactivity disorder), combined type Anxiety Primary hypertension Ordered: 12/01/2024 REFERRAL TO GENERAL SURGERY Referral Routine Supraumbilical hernia Ordered: 12/01/2024 REFERRAL TO GYNECOLOGY Referral Routine Recurrent vaginitis Ordered: 12/05/2024 documented as of this encounter Visit Diagnoses Diagnosis PTSD (post-traumatic stress disorder)- Primary Posttraumatic stress disorder Chronic low back pain, unspecified back pain laterality, unspecified whether sciatica present Lumbar radiculitis Thoracic or lumbosacral neuritis or radiculitis, unspecified Candidiasis NSTEMI (non-ST elevated myocardial infarction) ([facility]) Acute myocardial infarction, subendocardial infarction, episode of care unspecified MDD (major depressive disorder), recurrent episode, moderate ([facility]) Major depressive disorder, recurrent episode, moderate ADHD (attention deficit hyperactivity disorder), combined type Attention deficit disorder with hyperactivity Anxiety Anxiety state, unspecified Primary hypertension Unspecified essential hypertension Supraumbilical hernia Recurrent vaginitis Vaginitis and vulvovaginitis, unspecified documented in this encounter Additional Health Concerns Assessment Noted Time PHQ-9 Depression Total Score: 0 12/02/19 25 2:27 PM PDT documented as of this encounter Care Teams Wholesale Representative Relationship Specialty Start Date End Date Aster Leiva NP [address] [place] [address] PCP - General Internal Medicine 09/01/22 documented as of this encounter
--- OUTSIDE RECORDS SUMMARY | 2024-12-06 15:34 | XMS_ITS | Encounter Summary ---
Author Organization [facility] Address [address] [place] [address] Care Team Providers Care Travel Writer Name Role Phone Luke Desouza MD Primary Care Provider [phone] Aster Prather NP Primary Care Provider Prem yarbrough Encounter Details Date Type Department Care Team Description 01/08/2015 CHECK CLERK/[facility] Report Medical Records [address] [place] [id number] Abstract, Provider Social History Tobacco Use Types [...] on filedocumented in this encounter Care Teams Travel Writer Relationship Specialty Start Date End Date Luke Desouza MD [address] [place] [address] PCP - General Internal Medicine 06/14/12 06/21/24 Aster Prather NP [address] [place] [address] PCP - General Nurse Practioner Adult Health 06/22/24 documented as of this encounter
--- OUTSIDE RECORDS SUMMARY | 2024-12-06 15:34 | XMS_ITS | Clinical Summary ---
Author Organization [facility] Address [address] [place] [address] Care Team Providers Care Straightening Press Operator Helper Name Role Phone Unavailable Primary Care Provider Unavailabl e Immunizations Name Administration Dates Next Due Covid-19 MRNA Vaccine - Pfizer 12+ (Purple Cap) 06/17/2021,05/15/2021 Social History Tobacco Use Types Packs/Day Years Used Date Smoking Tobacco: Never Assessed Sex and Gender Information Value Date Recorded Sex Assigned at Not on file Gender Identity Not on file Sexual Orientation Not on file Plan of Treatment Health Maintenance Due Date Last Done Comments Hepatitis C Virus Screening 1978 HIV Screening 1991 DTaP/Tdap/Td Vaccines (1 - Tdap) 1997 Hepatitis B Vaccines (1 of 3 - 19+ 3-dose series) 1997 Pap Smear (Ages 21-65) 1999 Mammogram 2018 Colonoscopy 2023 Influenza Vaccine 04/06/2024 COVID-19 Vaccine (3 - 2023-2 5 season) 2024 06/17/2021, 05/15/2021 Pneumococcal Vaccine: Pediatric (0-5 Years) and At-Risk Patients (6 to 49 Years) Aged Out No longer eligible b ased on patient's age to complete this topic
--- OUTSIDE RECORDS SUMMARY | 2024-12-06 15:34 | XMS_ITS | Encounter Summary ---
Author Organization [facility] Address [address] [place] [address] Care Team Providers Care Tailer Out Name Role Phone Aster Leiva NP Primary Care Provider [phone] Encounter Details Date Type Department Care Team ([facility] Contact Info) Description 12/01/2024 Interim Notes [address] [phone] Lilliam Neville[address] [address] Social History Tobacco Use Types Packs/Day Years Used Date Smoking Tobacco: Every Day Cigarettes Smokeless Tobacco: Never Alcohol Use Standard Drinks/Week Comments Yes 0 [...] AM PST documented as of this encounter Progress Notes * Lilliam Neville MA - 12/01/2024 3:33 PM EDT Scrip for ana sign and fax to [phone] confirmed and sent to medical records documented in this encounter Plan of Treatment Upcoming Encounters Date Type Department Care Team (Late st Contact Info) Description 12/14/2024 11:30 AM EDT BH/MH Visits [address] [phone] Latoya Jack, Community Health Worker [address] [place] [address] 01/02/2025 1:40 PM EDT Office Visit [facility] [address] [place] [phone] Li Garcia [address] [place] [address] 01/05/2025 1:00 PM EDT Office Visit [address] [phone] Aster Leiva NP [address] [facility] [place] [address] 01/23/2025 11:00 AM EDT BH/MH Visits [address] [phone] Ning Burris PMHNP [address] [place] [phone] documented as of this encounter Visit Diagnoses Not on filedocumented in this encounter Additional Health Concerns Assessment Noted Time PHQ-9 Depression Total Score: 0 12/02/19 25 2:27 PM PDT documented as of this encounter Care Teams Tailer Out Relationship Specialty Start Date End Date Aster Leiva NP [address] [place] [address] PCP - General Internal Medicine 09/01/22 documented as of this encounter
--- OUTSIDE RECORDS SUMMARY | 2024-12-06 15:34 | XMS_ITS | Clinical Summary ---
Author Organization [facility] Address [address] [place] [address] Care Team Providers Care Clipman Name Role Phone Aster Prather NP Primary Care Provider Prem yarbrough Allergies Active Allergy Reactions Severity Noted Date Comments Ticagrelor 06/22/2024 Medications Medication Sig Dispensed Refills Start Date End Date Status Aspirin Low Dose 81 MG EC tablet Take 1 Tablet by mouth daily. 0 05/31/2024 Active Acetaminophen Extra Strength 500 MG Tab 1,000 mg every 6 hours. 0 03/29/2024 Active atomoxetine (STRATTERA) 80 MG capsule 1 Capsule daily. 0 06/15/2024 Active clopidogrel (PLAVIX) 75 MG tablet Take 1 Tablet by mouth daily. 0 06/10/2024 Active cyclobenzaprine (FLEXERIL) 10 MG tablet 3 times daily. 0 04/14/2024 Active Diclofenac Sodium 1 % Gel 2 times daily. 0 05/31/2024 Active erythromycin (ROMYCIN) ophthalmic ointment APPLY TO EACH EYE 4 TIMES A DAY 0 06/02/2024 Active famotidine (PEPCID) 20 MG tablet 2 times daily. 0 06/12/2024 Active metoprolol (TOPROL-XL) 25 MG 24 hr tablet Take 1 Tablet by mouth daily. 0 04/13/2024 Active Pred Forte 1 % ophthalmic suspension 1 drop every 4 hours 0 06/19/2024 Active trimethoprim-polymyxi n b (POLYTRIM) ophthalmic solution 1 drop in left eye every 3 hours 0 05/30/2024 Active rosuvastatin (CRESTOR) 5 MG tablet 1 Tablet daily. 0 04/06/2024 Active duloxetine (CYMBALTA) 60 MG capsule Take 1 Capsule by mouth at bedtime. 0 Active lisinopril (PRINIVIL,ZESTRIL) 40 MG tablet Take 1 Tablet by mouth daily. 0 Active nystatin (MYCOSTATIN) powder Apply topically 4 times daily. 0 Active Meclizine HCl 25 MG Tab Take by mouth daily. 0 Active Active Problems Problem Noted Date Shoulder pain 09/22/2012 Morbid obesity 07/12/2012 Depression 06/15/2012 Anxiety 06/15/2012 Back pain 06/15/2012 PTSD (post-traumatic stress disorder) Immunizations Name Administration Dates Next Due Influenza (> 6 Months) 06/15/2012 Tdap 06/15/2012 Family History Medical History Relation Name Comments Autoimmune Negative Hx CA Breast Negative Hx CA Colon Negative Hx CA Prostate Negative Hx CAD Negative Hx CHF Negative Hx Cholesterol Level Negative Hx Diabetes Negative Hx Hypertension Negative Hx [place] Negative Hx Mental Disorder Negative Hx Sleep Apnea Negative Hx Thyroid Disorder Negative Hx Relation Name Status Comments Father (Age 50s) Blood di sorder Mother Alive Depression Sister 1 Alive healthy Sister 2 Alive healthy Social History Tobacco Use Types Packs/Day Years Used Date Smoking Tobacco: Every Day Cigarettes 0.5 Smokeless Tobacco: Never Tobacco Cessation:Ready to Q uit: Yes; Counseling Given: Yes Alcohol Use Standard Drinks/Week Comments Yes 0.8 (1 standard drink = 0.6 oz p ure alcohol) Sex Assigned at Date Recorded Not on file Last Filed Vital Signs Vital Sign Reading Time Taken Comments Blood Pressure 122/80 05/20/2015 1:38 PM EDT Pulse 72 05/20/2015 1:38 PM EDT Temperature 36.8 ??C (98.2 ??F) 05/22/2015 9:54 AM ED T Respiratory Rate 16 05/20/2015 1:38 PM EDT Oxygen Saturation 98% 05/29/2014 10: 26 AM EDT Inhaled Oxygen Concentration - - Weight 146.6 kg (323 lb 3.2 oz) 05/20/2015 1:38 PM EDT Height 175.3 cm (5' 9 ) 05/20/2015 1:38 PM EDT Body Mass Index 47.73 05/20/2015 1:38 PM EDT Plan of Treatment Health Maintenance Due Date Last Done Comments Covid-19 Vaccine (#1) 1978 TOBACCO CHECK/ADVISE 1996 CERVICAL CANCER SCREENING 1999 BASELINE HEALTH EXAM 40-64 2018 10/04/2014, MAMMOGRAM 2018 CHOLESTEROL SCREENING 10/04/2019 10/04/2014 DTAP/TDAP/TD (2 - Td or Tdap) 06/15/2022 06/15/2012 BMI CHECK/ADVISE 09/06/2024 05/20/2015, , 10/04/2014, Additional history exists INFLUENZA (Season Ended) 2025 06/15/2012 PNEUMOCOCCAL VACCINE FOR HIG H RISK PATIENTS (#1) 2043 Care Teams Clipman Relationship Specialty Start Date End Date Aster Prather NP PCP - General Nurse Practioner Adult Health 06/22/24
== END 2024-12-06 14:04 | disposition home or self-care (01) ==
LOC: HO.HCS 12:58
PROVIDERS: Visit Provider Internal Medicine Cardiovascular Disease
DX: I10 Essential (primary) hypertension (principal); F17.200 Nicotine dependence, unspecified, uncomplicated; Z98.61 Coronary angioplasty status; I20.89 Other forms of angina pectoris
CPT/HCPCS: 93010; 99214

== ENCOUNTER → 2024-12-06 12:57 | Outpatient (BNVA) | payer OTHER, MEDICAID, SELFPAY | PROVIDERS: Visit Provider Internal Medicine Cardiovascular Disease | DX: I20.89 Other forms of angina pectoris (principal); I10 Essential (primary) hypertension; F17.210 Nicotine dependence, cigarettes, uncomplicated; Z98.61 Coronary angioplasty status | CPT/HCPCS: 93005; 99212 ==

== ENCOUNTER 2025-03-02 11:43 | Emergency (ER) | payer MEDICAID, SELFPAY ==
--- NOTE | ~2025-03-02 | CT_ITS ---
EXAMINATION: CT HEAD WITHOUT CONTRAST CLINICAL INFORMATION: hypertensive, KEE, blurred vision COMPARISON: January 30, 2024. TECHNIQUE: Contiguous axial imaging was performed from the skull base to vertex without intravenous administration of contrast. This CT examination was performed using dose optimization techniques as appropriate, variously including the following: *Automated exposure control *Adjustment of mA and/or kV according to patient size (this includes techniques or standardized protocols for targeted exams where dose is matched to indication/reason for exam; i.e. extremities or head) *Use of iterative reconstruction technique DLP: 653 mGy-cm FINDINGS: No acute intracranial hemorrhage, mass effect, midline shift, hydrocephalus or herniation. Sellar/suprasellar region demonstrated no gross masses. Craniocervical junction demonstrates normal position of the cerebellar tonsils. Flores-white matter differentiation is normal. No masses or fluid collections within the intraconal or the extraconal compartments of the orbits. The eyeballs are intact. No air-fluid levels in the paranasal sinuses. Retention cysts versus polyp in the inferior left maxillary sinus. Tympanic cavities and mastoid cells are aerated. Pneumatized petrous apices. CT/CT head/brain wo IV con IMPRESSION: No acute intracranial hemorrhage or acute brain abnormality by CT. Electronically signed by: Tucker Steven MD 03/02/2025 02:02 PM EDT
--- NOTE | ~2025-03-02 | XR_ITS ---
EXAMINATION: XR SHOULDER 2 OR MORE VIEWS RIGHT HISTORY: pain COMPARISON: Comparison is made with the prior examination dated 01/30/2024. FINDINGS: Three views of the right shoulder are submitted. Osseous mineralization is normal. There is no fracture or dislocation. The glenohumeral joint is maintained. There is moderate osteoarthritis of the AC joint, with joint space narrowing and osteophyte formation. The soft tissues are unremarkable. XR/XR shoulder RT min 2V IMPRESSION: Moderate osteoporosis of the AC joint. Electronically signed by: Favio Shah MD 03/02/2025 01:51 PM EDT
--- NOTE | 2025-03-02 11:45 | ECG_ITS ---
Test Reason : CP Blood Pressure : */* mmHG Vent. Rate : 97 BPM Atrial Rate : 97 BPM P-R Int : 154 ms QRS Dur : 80 ms QT Int : 342 ms P-R-T Axes : 37 10 36 degrees QTcB Int : 434 ms Normal sinus rhythm Low voltage QRS Borderline ECG When compared with ECG of 08-Sep-2023 21:09, Premature ventricular complexes are no longer Present Referred By: Generic ED Physician Electronically Signed By: SOCO QUINTERO
[2025-03-02 11:54] VITALS: BP 165/107; PULSE 94; RESP 16; TEMP 36.2; O2SAT 97; BMI 51.1
--- NOTE | 2025-03-02 11:55 | ED.GENADULT ---
HPI - General Adult General Chief complaint: General Medical Stated complaint: High Blood Pressure, R Shoulder Pain, R Chest Pain Time Seen by Provider: 03/02/25 12:22 Source: patient, RN notes reviewed and old records reviewed Mode of arrival: ambulatory Limitations: no limitations History of Present Illness ED Provider: Chana HPI narrative: 44-year-old female with a past medical history significant for coronary artery disease status post stenting x1, hypertension, morbid obesity presents for evaluation of right shoulder pain. Patient reports she has had high blood pressure at home with readings as high as 170/120. She is on lisinopril. She reports that she spoke to her primary doctor who called in a prescription for amlodipine. The patient reports that she has been having right shoulder pain for the last 2 years Denies any recent falls pain Her pain is typically in the back of the shoulder that has been radiating around to the anterior shoulder and chest area prompting her ER visit today Denies any shortness of breath Denies any leg swelling Related Data Home Medications ?Medication ?Instructions ?Recorded ?Confirmed sertraline 50 mg tablet 50 mg PO ONCE 04/12/24 12/06/24 lisinopril 20 mg tablet 40 mg PO DAILY 08/02/24 12/06/24 Previous Rx's ?Medication ?Instructions ?Recorded blood pressure test kit-large #1 ea 06/23/23 aspirin 81 mg tablet,delayed 81 mg PO DAILY 90 days #90 tabs 03/20/24 release oxycodone 5 mg tablet 5 mg PO Q8H PRN pain 3 days #9 tabs 04/12/24 rosuvastatin 5 mg tablet 5 mg PO DAILY 90 days #90 tabs 04/12/24 semaglutide (weight loss) 0.25 0.25 mg (0.5 mL) subcut QWEEK #5 mL 08/02/24 mg/0.5 mL subcutaneous pen injector (Wecolinvlazarus) clopidogrel 75 mg tablet 75 mg PO DAILY #90 tabs 03/02/25 ketorolac 10 mg tablet 10 mg PO Q8H PRN pain #10 tabs 03/02/25 metoprolol succinate 25 mg 25 mg PO DAILY #90 tabs 03/02/25 tablet,extended release 24 hr oxycodone 5 mg tablet 5 mg PO Q8H PRN severe pain (scale 03/02/25 score 7-10) #12 tabs Allergies Allergy/AdvReac Type Severity Reaction Status Date / Time atorvastatin AdvReac Intermediate myalgia Verified 03/02/25 11:57 ticagrelor (From Brilinta) AdvReac Difficulty Verified 03/02/25 11:57 Breathing Review of Systems Constitutional: Constitutional: Denies body ache(s), Denies chills, Denies fever(s) and Denies headache(s) Eyes: Eyes: Denies blurry vision ENT: Denies dizziness, Denies dry mouth and Denies headache(s) Cardiovascular: Cardiovascular: Denies dyspnea on exertion Respiratory: Respiratory: Denies cough and Denies dyspnea on exertion Gastrointestinal: Gastrointestinal: Denies abdominal pain, Denies diarrhea, Denies nausea and Denies vomiting Musculoskeletal: Musculoskeletal: Denies back pain, Reports arthralgias, Denies joint swelling and Denies limited range of motion Integumentary/Breasts: Skin/Breast: Denies rash Neurologic: Denies dizziness and Denies headache(s) Psychiatric: Psychiatric: Denies anxiety [facility] Past Medical History Medical History (Updated 03/02/25 @ 14:12 by Isaak Zayas) NSTEMI (non-ST elevated myocardial infarction) Herniated lumbar intervertebral disc Hypertension Surgical History S/P cardiac cath Social History Social History Alcohol intake: current Alcohol intake frequency: holidays/special occasions only Patient Tobacco Use Status: Current everyday Tobacco user Tobacco use type: Cigarette Cigarette Packs Per Day: 0.5 Use of substances other than those prescribed or required for medical reasons: No Advance Directives: No Advance Directives Information Provided: No Do you have a plan to hurt others: No Plan Patient : No service: No Physical Exam ED Vital Signs: Vital Signs - 24 hr 03/02/25 11:54 03/02/25 12:19 03/02/25 14:22 Temperature 97.2 F 97.9 F 97.9 F Pulse Rate 94 95 95 Respiratory Rate 16 16 16 Blood Pressure 165/107 H 113/74 113/74 Pulse Oximetry 97 98 98 Oxygen Delivery Method Room Air Room Air Room Air BMI result Body Mass Index 51.1 Const General: healthy appearing, comfortable, no acute distress, alert and awake Nutritional Appearance: well nourished Orientation/consciousness: patient oriented x3 HENMT Head: Yes normocephalic and Yes atraumatic Eyes Eyelids: Yes eyelids normal Conjunctivae: conjunctivae normal Sclerae: sclerae normal Corneas: corneas normal Pupils: Equal, round and reactive pupils present EOM: EOMs intact bilaterally Neck Neck: Yes full ROM Resp Effort & Inspection: normal respiratory effort, able to speak in complete sentences and not labored Cardio Rate: regular rate Rhythm: regular rhythm GI Inspection: No distended Palpation (GI): Soft to palpation, not firm, nontender, no guarding and not rigid Skin General skin exam: elasticity normal Neuro General: patient oriented x3 Cranial nerves: Yes Equal, round and reactive pupils present and Yes Bilaterally intact EOM present Cognition (Neuro): normal cognition Extrem Other: Moving all extremities well without any obvious deformities. There is some mild right posterior shoulder tenderness in the area of the rotator cuff. No right chest tenderness or crepitus noted. Full range of motion to the right shoulder Course Course Course Narrative: 03/02/25 1156 FRED John This is a Rapid Medical Examination (RME) performed by Judi Quezada PA-C in triage. Full HPI, ROS, assessment and treatment plan per primary provider in the Main ED. Hx: 44 yo F hx HTN on lisinopril, NSTEMI here for eval of elevated BPs x4-5 days. BP readings 180s/114 at home. having headache on waking, blurred vision, right shoulder pain, and chest pain. contacted PCP who added amlodipine to her HTN regiment. she is supposed to pick this up from the pharmacy today. reports taking her lisinopril this morning. PE/vitals: hypertensive 165/107 Plan: labs, ekg, CT Medications Administered Discontinued Medications Generic Name Dose Route Start Last Admin Trade Name Freq PRN Reason Stop Dose Admin Ketorolac Tromethamine 30 mg 03/02/25 12:40 03/02/25 13:12 Ketorolac Tromethamine 30 Mg/Ml Vial IM 03/02/25 12:41 30 mg ONCE ONE Administration Ketorolac Tromethamine 30 mg 03/02/25 12:54 03/02/25 13:13 Ketorolac Tromethamine 30 Mg/Ml Vial IM 03/02/25 12:55 30 mg ONCE ONE Administration Oxycodone HCl 5 mg 03/02/25 13:06 03/02/25 13:11 Oxycodone Hcl Immed Release 5 Mg Tablet PO 03/02/25 13:07 5 mg ONCE ONE Administration Medical Decision Making Medical Decision Making [facility] Narrative: 44-year-old female presents for evaluation of right-sided shoulder pain that radiates to her right anterior chest. Due to her medical history she is concerned about ACS, her EKG is not acutely ischemic. Normal sinus rhythm with a rate of 97 beats per minute. No ST segment elevation ID. labs are pending, we will get an x-ray of the right shoulder. Clinically her pain is most likely musculoskeletal in origin. Despite her home blood pressure readings, her blood pressure in the ER today is reassuring. In triage he was elevated to 165/107 but in the room with an appropriate size cuff her blood pressure is 113/74 Differential Diagnosis Differential Diagnoses: The differential diagnosis associated with the presentation includes Right shoulder pain Arthralgia Tendonitis Rotator cuff injury ACS Anxiety Hypertension Lab Data [facility] Lab Attestation statement: I reviewed the patient's lab results. Mild leukocytosis vomiting to 13.7 however there is no significant left shift. The patient's previous labs from September of 2023 a in June 2023 also showed a leukocytosis which may be baseline for the patient. Hemoglobin and hematocrit are slightly elevated to 16.2 and 47.5 which could be related to some degree of dehydration all hemoconcentration. Chemistries are reassuring, troponin is negative despite several days of shoulder pain, she rules out for ACS with a negative troponin and nonischemic EKG 03/02/25 12:47 03/02/25 12:47 Labs: Lab Results 03/02/25 Range/Units 12:47 WBC 13.7 H (4.8-10.8) X10*3/uL RBC 5.21 (4.20-5.50) X10*6/uL Hgb 16.2 H (12.0-16.0) g/dl Hct 47.5 H (37.0-47.0) % MCV 91.2 (80.0-98.0) fL MCH 31.1 (27.0-33.0) pg MCHC 34.1 (31.0-35.0) g/dl RDW 14.3 (11.0-16.0) % Plt Count 305 (160-400) X10*3/uL MPV 10.0 (9.4-12.3) fL Immature Gran % (Auto) 0.4 (0.0-0.4) % Neut % (Auto) 59.1 (45-73) % Lymph % (Auto) 34.9 (20-40) % [place] % (Auto) 3.6 (2-11) % Eos % (Auto) 1.3 (0-4) % Baso % (Auto) 0.7 (0-2) % Lymph # (Auto) 4.8 (1.2-4.9) X10*3/uL [place] # (Auto) 0.5 (0.1-1.2) X10*3/uL Eos # (Auto) 0.2 (0.0-0.4) X10*3/uL Baso # (Auto) 0.1 (0.0-0.2) X10*3/uL Abs Immat Gran (auto) 0.06 H (0.00-0.03) X10*3/uL Absolute Neuts (auto) 8.1 (2.0-8.3) x10*3/uL Absolute Nucleated RBC 0.000 (0.0-0.012) X10*3/uL Nucleated RBC % (auto) 0.0 (0.0-0.2) /100WBC Sodium 136 (135-145) mmol/L Potassium 4.0 (3.3-5.1) mmol/L Chloride 102 (96-108) mmol/L Carbon Dioxide 23 (22-29) mmol/L Anion Gap 15 (12-20) BUN 15 (9-16) mg/dL Creatinine 0.61 (0.5-1.4) mg/dL Estim Creat Clear Calc 186.4 Estimated GFR > 60 Random Glucose 117 H (60-115) mg/dL Calcium 9.3 (8.4-10.2) mg/dL Magnesium 1.9 (1.6-2.6) mg/dL Total Bilirubin 0.3 (0.0-1.0) mg/dL AST 36 H (5-31) U/L ALT 48 H (0-31) U/L Alkaline Phosphatase 103 (39-117) U/L Troponin I High Sens < 2.7 (<3.5-17.0) ng/L Total Protein 7.6 (6.5-8.0) g/dL Albumin 4.5 (3.5-5.0) g/dL Beta HCG, Quant < 2 mIU/mL Independent Interpretation I performed an independent interpretation of an: EKG (Normal sinus rhythm with a rate of [address] segment elevation or depression, 9 9th G) Radiology Impression Discussion of test interpretation with radiology: I have reviewed the radiologist's reading. Radiologist Impression: FINDINGS: Three views of the right shoulder are submitted. Osseous mineralization is normal. There is no fracture or dislocation. The glenohumeral joint is maintained. There is moderate osteoarthritis of the AC joint, with joint space narrowing and osteophyte formation. The soft tissues are unremarkable. XR/XR shoulder RT min 2V IMPRESSION: Moderate osteoporosis of the AC joint. Electronically signed by: Favio Shah MD 03/02/2025 01:51 PM EDT RP FINDINGS: No acute intracranial hemorrhage, mass effect, midline shift, hydrocephalus or herniation. Sellar/suprasellar region demonstrated no gross masses. Craniocervical junction demonstrates normal position of the cerebellar tonsils. Flores-white matter differentiation is normal. No masses or fluid collections within the intraconal or the extraconal compartments of the orbits. The eyeballs are intact. No air-fluid levels in the paranasal sinuses. Retention cysts versus polyp in the inferior left maxillary sinus. Tympanic cavities and mastoid cells are aerated. Pneumatized petrous apices. CT/CT head/brain wo IV con IMPRESSION: No acute intracranial hemorrhage or acute brain abnormality by CT. Electronically signed by: Tucker Steven MD 03/02/2025 02:02 PM EDT RP Discharge Plan Discharge Clinical Impression: Acute pain of right shoulder Patient Disposition: Home, Self-Care Instructions: Arthralgia (ED) Additional Instructions: You have moderate osteoporosis of the right shoulder at the AC joint. I recommend you follow up with your outpatient providers for an MRI when The your EKG, blood work were reassuring. The pain is not related to your heart Follow up with your primary doctor, return for You may use Toradol for pain in the member you should not mix this with the mother NSAIDs ibuprofen, naproxen Prescriptions: New ketorolac 10 mg tablet 10 mg PO Q8H PRN (Reason: pain) Qty: 10 0RF Rx Instructions: maximum total duration of 5 days from all oral, intranasal, or parenteral formulations oxycodone 5 mg tablet 5 mg PO Q8H PRN (Reason: severe pain (scale score 7-10)) Qty: 12 0RF Rx Instructions: Partial Fill upon patient request. No Action aspirin 81 mg tablet,delayed release (DR/EC) 81 mg PO DAILY 90 Days Qty: 90 3RF clopidogrel 75 mg tablet 75 mg PO DAILY Qty: 90 3RF metoprolol succinate 25 mg tablet extended release 24 hr 25 mg PO DAILY Qty: 90 3RF sertraline 50 mg tablet 50 mg PO ONCE oxycodone 5 mg tablet 5 mg PO Q8H PRN (Reason: pain) 3 Days Qty: 9 0RF Rx Instructions: Partial Fill upon patient request. rosuvastatin 5 mg tablet 5 mg PO DAILY 90 Days Qty: 90 3RF lisinopril 20 mg tablet 40 mg PO DAILY Wegovy 0.25 mg/0.5 mL pen injector 0.25 mg subcut QWEEK Qty: 5 0RF Rx Instructions: administer weeks 1 through 4 of therapy (DME) blood pressure test kit-large Kit See Rx Instructions .Route Qty: 1 0RF Rx Instructions: As directed Interventions: ED Discharge Assessment Last Done: 03/02/25 14:22 Print Language: Omani
[2025-03-02 12:19] VITALS: BP 113/74; PULSE 95; RESP 16; TEMP 36.6; O2SAT 98
[2025-03-02 12:53] LABS: MANUAL DIFF FLAG NO
[2025-03-02 12:55] LABS: Basophils Absolute Auto 0.1 X10*3/uL (0.0-0.2); Basophils Percent Auto 0.7 % (0-2); Eosinophils Absolute Auto 0.2 X10*3/uL (0.0-0.4); Eosinophils Percent Auto 1.3 % (0-4); Hematocrit 47.5 % (37.0-47.0); Hemoglobin 16.2 g/dl (12.0-16.0); Imm Gran Abs Auto 0.06 X10*3/uL (0.00-0.03); Imm Gran Pct Auto 0.4 % (0.0-0.4); Lymphocytes Absolute Auto 4.8 X10*3/uL (1.2-4.9); Lymphocytes Percent Auto 34.9 % (20-40); Mean Corpuscular HGB Conc 34.1 g/dl (31.0-35.0); Mean Corpuscular Hemoglobin 31.1 pg (27.0-33.0); Mean Corpuscular Volume 91.2 fL (80.0-98.0); Monocytes Absolute Auto 0.5 X10*3/uL (0.1-1.2); Monocytes Percent Auto 3.6 % (2-11); Neutrophils Absolute Auto 8.1 x10*3/uL (2.0-8.3); Neutrophils Percent Auto 59.1 % (45-73); Platelet Count 305 X10*3/uL (160-400); Red Blood Count 5.21 X10*6/uL (4.20-5.50); Red Cell Distribution Width 14.3 % (11.0-16.0); White Blood Count 13.7 X10*3/uL (4.8-10.8)
--- OUTSIDE RECORDS SUMMARY | 2025-03-02 13:10 | XMS_ITS | Clinical Summary ---
Author Organization [facility] Address [address] [place] [address] Phone Care Team Providers Care Research And Development Specialist Name Role Phone Aster Leiva Primary Care Provider [phone] Allergies Active Allergy Reactions Criticality Noted Date [...] before your procedure. 4000 mL 5 Active Additional Information Patient not taking.Reported on 01/09/2025 bisacodyL (DULCOLAX) 5 mg EC tablet Take 2 tablets by mouth right before beginning bowel prep. See instructions provided by the office 2 tablet 5 Active Additional Information Patient not taking.Reported on 01/09/2025 Zepbound 5 mg/0.5 mL injection Inject 0.5 mL (5 mg total) under the skin every 7 (seven) days. Active omeprazole (PriLOSEC) [address] capsule Take by mouth 1 (one) time each day. Active Active Problems Problem Noted Date Diagnosed Date Shoulder pain 09/22/2012 Morbid obesity (CMS/HCC V24, CMS/HCC V28) 2011 Depression 06/15/2012 Anxiety 06/15/2012 PTSD (post-traumatic stress disorder) 06/15/2012 Back pain 06/15/2012 Encounters Date Type Department Care Team Description 01/09/2025 1:30 PM EDT Consult General Surgery - [address] [address] Roland Anglin, Morbid obesity ([facility] V24, [facility] V28) (Primary Dx); Ventral hernia without obstruction or gangrene 12/21/2024 9:55 AM EDT Anesthesia Event [facility] Endoscopy [address] [place] [id number] Tito Brown MD Swanson, Mona, CRNA 12/21/2024 9:06 AM EDT - 12/21/2024 11:59 PM EDT Hospital Encounter [facility] Endoscopy [address] [place] [address] Taurus Hernandez MD Swanson, Mona, CRNA Spencer, Mark A, MD Colon cancer screening Discharge Disposition: Home or Self Care from Last 3 Months Immunizations Name Administration Dates Next Due Influenza trivalent, 0.5mL, preservative free (Fluarix; FluLaval; Fluzone) ages 6mo and older (Afluria) 3 years and older 06/15/2012 Tdap Tetanus diptheria acell ular pertussis (Boostrix; Adacel) 7yo and older 06/15/2012 Surgical History Surgery Date Site/Laterality Comments CHOLECYSTECTOMY 2009 PROCEDURE: HISTORICAL CHOLECYSTECTOMY STENT PLACEMENT Medical History Medical History Date Comments Back pain DX:Back pain Depression DX:Depression; C OMMENT: [facility], Dr. Franklin Terrazas PTSD (post-traumatic stress disorder) DX:PTSD (post-traumatic stress disorder) Anxiety DX:Anxiety Heart attack ([facility] V24, [facility] V28) with stent placement Hypertension GERD (gastroesophageal reflux disease) Family History Medical History Relation Name Comments [...] Never Alcohol Use Standard Drinks/Week Comments Yes 3 (1 standard drink = 0.6 oz pur e alcohol) social Interpersonal Safety Answer Date Record ed Physical Abuse 12/21/2024 Verbal Abuse 12/21/2024 Comments No Sex and Gender Information Value Date Recorded Sex Assigned at Female 10/07/2024 6:48 PM EST Legal Sex Female 9:58 AM EST Gender Identity Female 10/07/2024 6:48 PM EST Sexual Orientation Straight 10/07/2024 6: 48 PM EST Obstetrics History Last Filed Vital Signs Vital Sign Reading Time Taken Comments Blood Pressure 130/88 01/09/2025 1:32 PM EDT Pulse 94 01/09/2025 1:32 PM EDT Temperature 35.9 C (96.7 F) 12/21/2024 10:15 AM EDT Respiratory Rate 20 12/21/2024 10:35 AM EDT Oxygen Saturation 96% 12/21/2024 10:45 AM EDT Inhaled Oxygen Concentration - - Weight 158 kg (349 lb) 01/09/2025 1:32 PM EDT Height 175.3 cm (5' 9 ) 12/21/2024 9:36 AM EDT Body Mass Index 51.54 12/21/2024 9:36 AM EDT Plan of Treatment Health Maintenance Due Date Last Done Comments Breast Cancer Screening 1980 Cervical Cancer Screening: Pap Smear 1999 HIV Screening 08/04/2022 Social Influencers of Health Screening 08/04/2022 Hypertension/CHF/CAD Annual BMP Blood Test 12/08/2023 10/04/2014 COVID-19 Vaccine ( season) 2024 12/09/2021, 06/17/2021, 05/15/2021 Depression Screening 12/01/2025 12/01/2024 Cholesterol Screening (Lipid Panel) 10/11/2028 10/11/2023, 10/11/2023, 05/27/2023, Additional history exists DTaP,Tdap,and Td Vaccines (4 - Td or Tdap) 10/06/2032 10/06/2022, 06/15/2012, 07/08/2010 Colorectal Cancer Screening: Colonoscopy 12/21/2034 12/21/2024 Hepatitis B Vaccines Completed 08/05/2023, 06/29/20 23 [...] age to complete this topic Meningococcal B Vaccine Aged Out No l onger eligible based on patient's age to complete this topic RSV Immunization Patients Under 20 months Aged Out No longer eligible based on patient's age to complete this topic Varicella Vaccines Aged Out No longer eligible based on patient's age to complete this topic Medical Devices Implanted Type Area Senior System Operator Device Identifier Shelf Expiration Date Model / Serial / Lot Stents Stents Left: Heart Description:Heart stent Procedures Procedure Name Priority Date/Time Associated Diagnosis Comments COLONOSCOPY Routine 12/21/2024 10:14 AM EDT Colon cancer screening TISSUE EXAM Routine 12/21/2024 10:08 AM EDT Colon cancer screening ANNUAL BMP BLOOD TEST Routine 10/04/2014 LIPID PANEL Routine 10/04/2014 from Last 3 Months or Most Recently Relevant to Health Maintenance Results * COLONOSCOPY Anesthesia - MAC; [facility] ENDOSCOPY (12/21/2024 10:14 AM EDT) Anatomical Region Laterality Modality Other 12/21/2024 9:33 AM EDT Impressions 12/21/2024 10:14 AM EDT - Internal hemorrhoids. - Two 3 to 4 mm polyps in the sigmoid colon, removed with a cold snare. Resected and retrieved. Recommendation: - Repeat colonoscopy in 5 years for surveillance. - Use fiber, for example Citrucel, Fibercon, Konsyl or Metamucil. - Await pathology results. Narrative 12/21/2024 10:14 AM EDT [facility] GI Patient Name: Patricia Snow Procedure Date: 12/21/2024 9:33 AM Date of : 1980 Age: 44 Gender: Female Note Status: Finalized Attending MD: Taurus Hernandez MD, Procedure Date No Time: 12/21/2024 Procedure: Colonoscopy Indications: Screening for colorectal malignant neoplasm Providers: Taurus Hernandez MD Referring MD: Ju Reed MD Medicines: Propofol per Anesthesia Complications: No immediate complications. Estimated Blood Loss: Estimated blood loss was minimal. Procedure: Pre-Anesthesia Assessment: - ASA Grade Assessment: III - A patient with severe systemic disease. After I obtained informed consent, the scope was passed under direct vision. Throughout the procedure, the patient's blood pressure, pulse, and oxygen saturations were monitored continuously.The Colonoscope was introduced through the anus and advanced to the cecum, identified by appendiceal orifice and ileocecal valve. The colonoscopy was performed without difficulty. The patient tolerated the procedure well. The quality of the bowel preparation was adequate. Findings: The perianal and digital rectal examinations were normal. Internal hemorrhoids were found during endoscopy. The hemorrhoids were Grade I (internal hemorrhoids that do not prolapse). Two sessile polyps were found in the sigmoid colon. The polyps were 3 to 4 mm in size. These polyps were removed with a cold snare. Resection and retrieval were complete. Estimated blood loss was minimal. Procedure Code(s): --- Professional --- 88692, Colonoscopy, flexible; with removal of tumor(s), polyp(s), or other lesion(s) by snare technique Diagnosis Code(s): --- Professional --- Z12.11, Encounter for screening for malignant neoplasm of colon K64.0, First degree hemorrhoids D12.5, Benign neoplasm of sigmoid colon CPT copyright 2020 [employer]. All rights reserved. The codes documented in this report are preliminary and upon watch adjuster review may be revised to meet current compliance requirements. Taurus Hernandez MD 12/21/2024 10:14:17 AM This report has been signed electronically.Taurus Hernandez MD Number of Addenda: 0 Note Initiated On: 12/21/2024 9:33 AM Scope In: Scope Out: Endoscopy Department at [facility] - [address] [place] [phone] Procedure Note Taurus Hernandez MD - 12/21/2024 [facility] GI Patient Name: Patricia Snow Procedure Date: 12/21/2024 9:33 AM Date of : 1980 Age: 44 Gender: Female Note Status: Finalized Attending MD: Taurus Hernandez MD, Procedure Date No Time: 12/21/2024 Procedure: Colonoscopy Indications: Screening for colorectal malignant neoplasm Providers: Taurus Hernandez MD Referring MD: Ju Reed MD Medicines: Propofol per Anesthesia Complications: No immediate complications. Estimated Blood Loss: Estimated blood loss was minimal. Procedure: Pre-Anesthesia Assessment: - ASA Grade Assessment: III - A patient with severe systemic disease. After I obtained informed consent, the scope was passed under direct vision. Throughout theprocedure, the patient's blood pressure, pulse, and oxygen saturations were monitored continuously.The Colonoscope was introduced through the anus and advanced to the cecum, identified by appendiceal orifice and ileocecal valve. The colonoscopy was performed without difficulty. The patient tolerated the procedure well. The quality of the bowel preparation was adequate. Findings: The perianal and digital rectal examinations were normal. Internal hemorrhoids were found during endoscopy.The hemorrhoids were Grade I (internal hemorrhoids thatdo not prolapse). Two sessile polyps were found in the sigmoid colon. The polyps were 3 to 4 mm in size. These polypswere removed with a cold snare. Resection and retrieval were complete. Estimated blood loss was minimal. Procedure Code(s): --- Professional --- 83120, Colonoscopy, flexible; with removal of tumor(s), polyp(s), or other lesion(s) by snare technique Diagnosis Code(s): --- Professional --- Z12.11, Encounter for screening for malignantneoplasm of colon K64.0, First degree hemorrhoids D12.5, Benign neoplasm of sigmoid colon CPT copyright 2020 [employer]. All rights reserved. The codes documented in this report are preliminary and upon watch adjuster reviewmay be revised to meet current compliance requirements. Taurus Hernandez MD 12/21/2024 10:14:17 AM This report has been signed electronically.Taurus Hernandez MD Number of Addenda: 0 Note Initiated On: 12/21/2024 9:33 AM Scope In: Scope Out: Endoscopy Department at [facility] - [address] [place] [phone] IMPRESSION: - Internal hemorrhoids. - Two 3 to 4 mm polyps in the sigmoid colon,removed with a cold snare. Resected and retrieved. Recommendation: - Repeat colonoscopy in 5 years for surveillance. - Use fiber, for example Citrucel, Fibercon, Konsylor Metamucil. - Await pathology results. us Ju Reed MD GI~PROCEDURE ORDERABLES Fin al Result * Tissue exam (12/21/2024 10:08 AM EDT) Final Diagnosis Polyps (x2 per specimen label), sigmoid colon, polypectomy: - Hyperplastic polyp(s) (two fragments). 12/22/2024 11:01 AM EDT [facility] Gross Description A. Large Intestine, Sigmoid Colon, polyps x2: Labeled sigmoid colon . Received in formalin are two soft to rubbery, vela-red tissue fragments, approximately measuring 0.5 cm and 0.6 cm in greatest diameters, which are inked green at their bases, and admixed with fecal/food debris. The specimen is wrapped in paper and submitted in toto in one cassette, two pieces, multiple levels. dvb/DG 12/22/2024 11:01 AM EDT [facility] Disclaimer Unless otherwise specified, all tissue is 10% NB formalin fixed and paraffin embedded. 12/22/2024 11:01 AM EDT [facility] Tissue Sigmoid colon structure / Unknown 12/21/2024 10:08 AM EDT 12/21/2024 11:55 AM EDT Ju Reed MD LAB PATHOLOGY ORDERABLES Fi nal Result [facility] [address] [place] [address], [place] [phone] * Annual BMP Blood Test (10/04/2014) Annual BMP Blood Test abstracted Historical Provider [...] Most Recently Relevant to Health Maintenance Insurance MEDICAID - [place] Care Teams Research And Development Specialist Relationship Specialty Start Date End Date Aster Leiva [address] [place] [address] PCP - General 12/13/24
[2025-03-02] MEDS: oxyCODONE HCl Immed Release 5 MG TABLET PO (13:11)
[2025-03-02] MEDS: Ketorolac Tromethamine 30 MG/ML VIAL IM ×2 (13:12→13:13)
[2025-03-02 13:13] LABS: Alanine Aminotransferase 48 U/L (0-31); Albumin Level 4.5 g/dL (3.5-5.0); Alkaline Phosphatase 103 U/L (39-117); Anion Gap 15 (12-20); Aspartate Amino Transferase 36 U/L (5-31); Bilirubin Total 0.3 mg/dL (0.0-1.0); Blood Urea Nitrogen 15 mg/dL (9-16); Calcium 9.3 mg/dL (8.4-10.2); Carbon Dioxide 23 mmol/L (22-29); Chloride 102 mmol/L (96-108); Creatinine Clr Calc Pharmacy 186.4; Estimated Glomerular Filt Rate > 60; Glucose Random 117 mg/dL (60-115); Magnesium 1.9 mg/dL (1.6-2.6); Sodium 136 mmol/L (135-145); Total Protein 7.6 g/dL (6.5-8.0)
[2025-03-02 13:25] LABS: HCG Quantitative < 2 mIU/mL; Troponin-I High Sensitivity < 2.7 ng/L (<3.5-17.0)
[2025-03-02 14:22] VITALS: BP 113/74; PULSE 95; RESP 16; TEMP 36.6; O2SAT 98
== END 2025-03-02 14:30 | disposition home or self-care (01) ==
PROVIDERS: Physician Assistant Medical; Emergency Provider Emergency Medicine; PCP Dentist General Practice
DX: M25.511 Pain in right shoulder (principal); I10 Essential (primary) hypertension; F17.210 Nicotine dependence, cigarettes, uncomplicated; Z79.02 Long term (current) use of antithrombotics/antiplatelets; Z79.899 Other long term (current) drug therapy
CPT/HCPCS: 36415; 70450; 73030; 80053; 83735; 84484; 84702; 85025; 93005; 96372; 99284; J1885

== ENCOUNTER → 2025-03-02 11:45 | Outpatient (BNV) | payer MEDICAID, SELFPAY | PROVIDERS: Emergency Provider Emergency Medicine; PCP Dentist General Practice; Visit Provider Internal Medicine | DX: R07.9 Chest pain, unspecified (principal) | CPT/HCPCS: 93010 ==

== ENCOUNTER → 2025-03-02 12:40 | Outpatient (BNV) | payer MEDICAID, SELFPAY | PROVIDERS: Emergency Provider Emergency Medicine; PCP Dentist General Practice; Visit Provider Radiology Diagnostic Radiology | DX: I10 Essential (primary) hypertension (principal); R51.9 Headache, unspecified; H53.8 Other visual disturbances; M81.8 Other osteoporosis without current pathological fracture | CPT/HCPCS: 70450; 73030 ==